=== PATIENT | male | born 1960 | race African-American/Black ===

== ENCOUNTER 2017-09-22 17:01 | Inpatient (IN) | payer OTHER ==
[2017-09-22] MEDS ORDERED: NAPROXEN 500 MG TABLET (FP) PO ONE (19:27)
--- NOTE | 2017-09-22 19:27 | PDOC ---
History of Present Illness - General Chief Complaint: Back Pain Stated Complaint: Back pain, PMD SENT Time Seen by Provider: 09/22/17 19:04 History Source: Patient - History of Present Illness Initial Comments: 09/22/17 19:26 56 year old male with a PMH of HTN and chronic back pain (2/2 to occupational injury) presents to ED today c/o 2-3 day h/o of exacerbation of back pain. Back pain radiates down his lower legs and is constant. Patient notes he fell off a ladder in 2018 and has chronic lower back pain since that time and been evaluated with multiple MRIs. For the past few days patient notes increased pain with ambulation prompting his visit to the ED today. Denies any associated bowel/bladder incontinence however notes increased pain with Valsalva when having a bowel movement. Patient takes 1-2 Naproxen (500 mg) daily for pain. States he has tried physical therapy in the past with no relief of his symptoms. Patient denies fevers/chills, chest pain, shortness of breath, navuase/vomiting , diarrhea/constipation, sick contact or recent travel. NKDA Medications: Lisinopril, Naproxen Surgical: L rotator cuff repaiir Social: denies nicotine, social alcohol, denies recreational drugs. Past History - Past Medical History Allergies/Adverse Reactions: Allergies Allergy/AdvReac Type Severity Reaction Status Date / Time No Known Allergies Allergy Verified 09/22/17 17:06 Home Medications: Ambulatory Orders Lisinopril 10 mg PO DAILY 09/22/17 Oxycodone HCl/Acetaminophen [Percocet 5-325 mg Tablet] 1 - 2 tab PO Q4H COPD: No Diabetes: Yes HTN: Yes Other medical history: Back pain - Suicide/Smoking/Psychosocial Hx Smoking History: Never smoked Number of Cigarettes Smoked Daily: 2 Information on smoking cessation initiated: Yes 'Breaking Loose' booklet given: 09/22/17 Hx Alcohol Use: No Drug/Substance Use Hx: No Review of Systems - Review of Systems Constitutional: No: Chills, Fever HEENTM: No: Recent change in vision Respiratory: No: Cough, Shortness of Breath Cardiac (ROS): No: Chest Pain, Lightheadedness, Palpitations ABD/GI: No: Constipated, Diarrhea, Nausea, Vomiting, Abdominal cramping *Physical Exam - Vital Signs Last Vital Signs Temp Pulse Resp BP Pulse Ox 98.4 F 97 H 19 171/86 97 09/22/17 17:04 09/22/17 17:04 09/22/17 17:04 09/22/17 17:04 09/22/17 17:04 - Physical Exam Comments: 09/22/17 22:03 GENERAL: Awake, alert, and fully oriented, in no acute distress HEAD: No signs of trauma EYES: PERRLA, EOMI, sclera anicteric, conjunctiva clear ENT: Auricles normal inspection, hearing grossly normal, nares patent, oropharynx clear without exudates. Moist mucosa NECK: Nontender, no stepoffs, Normal ROM, supple, no lymphadenopathy, JVD, or masses LUNGS: Breath sounds equal, clear to auscultation bilaterally. No wheezes, and no crackles HEART: Regular rate and rhythm, normal S1 and S2, no murmurs, rubs or gallops ABDOMEN: Soft, nontender, normoactive bowel sounds. No guarding, no rebound. No masses EXTREMITIES: Normal range of motion, no edema. No clubbing or cyanosis. No cords, erythema, or tenderness NEUROLOGICAL: Cranial nerves II through XII intact. 5/5 strength and sensation in all extremities, Normal speech, normal gait, normal cerebellar function SKIN: Warm, Dry, normal turgor, no rashes or lesions noted. ED Treatment Course - LABORATORY CBC & Chemistry Diagram: 09/25/17 05:47 09/25/17 05:47 Medical Decision Making - Medical Decision Making 09/22/17 19:36 56 year old male presents with exacerbation of chronic back pain- no bowel/ bladder incontinence, no numbness/tingling. Initially 171/86 repeat BP @ bedside 130's/96. Physical exam significant for midline sacral tenderness. (+ ) pedal pulses, normal ROM, negative straight leg test. As patient has h/o recent MRI and provides imaging on CD will review prior to repeat imaging. 09/22/17 19:49 Case d/w Patient's orthopedic surgeon, Dr. Peters, wishes to admit patient for lumbar decompression tomorrow (09/23/17) - NPO @ midnight.. Will page hospitalist for admission. 09/22/17 22:29 Patient admitted to hospitalist. Will continue to monitor while in ED. *DC/Admit/Observation/Transfer Diagnosis at time of Disposition: Back pain - Referrals - Patient Instructions - Post Discharge Activity
[2017-09-22] MEDS ORDERED: NAPROXEN 500 MG TABLET (FP) ONE (19:49)
--- NOTE | 2017-09-22 20:04 | PDOC ---
Attending Attestation - Resident Resident Name: Maryse Thapa - ED Attending Attestation I have performed the following: I have examined & evaluated the patient, The case was reviewed & discussed with the resident, I agree w/resident's findings & plan - HPI HPI: 09/22/17 21:33 Pt was sent to the ER for evaluation of back pain. - Physicial Exam PE: 09/22/17 22:46 Agree with resident exam - Medical Decision Making 09/22/17 22:47 Admit patient to the hospitalist for ortho eval in the AM. Pt also noted to have thrombocytopenia. Pt may require hematology consult.
[2017-09-22 20:12] LABS: BASO % 1.3 % (0-2.0); EOS % 0.7 % (0-4.5); HEMATOCRIT 35.2 % (35.4-49); HEMOGLOBIN 11.8 GM/dL (11.7-16.9); LYMPH % 36.5 % (8-40); MCH 28.3 pg (25.7-33.7); MCHC 33.5 g/dl (32.0-35.9); MEAN CELL VOLUME 84.5 fl (80-96); MONO % 9.5 % (3.8-10.2); PLATELET COUNT 115 K/MM3 (134-434); RBC 4.16 M/mm3 (4.00-5.60); RDW 14.7 % (11.9-15.9); WHITE BLOOD COUNT 6.9 K/mm3 (4.0-10.0)
[2017-09-22 20:50] LABS: ALBUMIN 3.9 g/dl (3.4-5.0); ALK PHOS 73 U/L (45-117); ANION GAP 7 (8-16); BLOOD UREA NITROGEN 19 mg/dL (7-18); CALCIUM 8.7 mg/dL (8.5-10.1); CHLORIDE 111 mmol/L (98-107); CO2 24 mmol/L (21-32); CREATININE 0.9 mg/dL (0.7-1.3); GLUCOSE,RANDOM 134 mg/dL (74-106); SGOT/AST 16 U/L (15-37); SGPT/ALT 32 U/L (12-78); SODIUM 142 mmol/L (136-145); TOT PROT 7.2 g/dl (6.4-8.2)
[2017-09-22 20:53] LABS: BILIRUBIN,TOTAL < 0.1 mg/dL (0.2-1.0)
[2017-09-22] MEDS ORDERED: IBUPROFEN 400 MG TABLET (FP) PO PRN (21:15)
[2017-09-22] MEDS: SODIUM CHLORIDE 1,000 ML IV SCH (21:29)
--- NOTE | 2017-09-22 21:51 | HP ---
CHIEF COMPLAINT: back pain HISTORY OF PRESENT ILLNESS: 56 year old male with a history of hypertension and chronic back pain presented to the ED with a 3 day exacerbation of his back pain. He states that the pain is a 9/10 in severity, is located in the middle of his lumbar spine and radiates down to both of his legs. 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 He was out of work for 3 months before going back. He states that his back pain had never completely improved even after physical therapy. Patient states that the only medications he is on is naproxen for pain. Denies bowel or bladder incontinence. He is a patient of Dr. Trip Peters' sherin as an outpatient. ER course was notable for: (1) plts 115 (2) BP 171/86 PAST MEDICAL HISTORY: hypertension PAST SURGICAL HISTORY: L rotator cuff repair Social History: Smoking: none Alcohol: none Drugs: none Allergies No Known Allergies Allergy (Verified 09/22/17 17:06) HOME MEDICATIONS: Home Medications Medication Instructions Recorded Lisinopril 10 mg PO DAILY 09/22/17 Oxycodone HCl/Acetaminophen 1 - 2 tab PO Q4H 09/22/17 [Percocet 5-325 mg Tablet] REVIEW OF SYSTEMS CONSTITUTIONAL: Absent: fever, chills, diaphoresis, generalized weakness, malaise, loss of appetite, weight change HEENT: Absent: rhinorrhea, nasal congestion, throat pain, throat swelling, difficulty swallowing, mouth swelling, ear pain, eye pain, visual changes CARDIOVASCULAR: Absent: chest pain, syncope, palpitations, irregular heart rate, lightheadedness , peripheral edema RESPIRATORY: Absent: cough, shortness of breath, dyspnea with exertion, orthopnea, wheezing, stridor, hemoptysis GASTROINTESTINAL: Absent: abdominal pain, abdominal distension, nausea, vomiting, diarrhea, constipation, melena, hematochezia GENITOURINARY: Absent: dysuria, frequency, urgency, hesitancy, hematuria, flank pain, genital pain MUSCULOSKELETAL: back pain Absent: myalgia, arthralgia, joint swelling, neck pain SKIN: Absent: rash, itching, pallor HEMATOLOGIC/IMMUNOLOGIC: Absent: easy bleeding, easy bruising, lymphadenopathy, frequent infections ENDOCRINE: Absent: unexplained weight gain, unexplained weight loss, heat intolerance, cold intolerance NEUROLOGIC: Absent: headache, focal weakness or paresthesias, dizziness, unsteady gait, seizure, mental status changes, bladder or bowel incontinence PSYCHIATRIC: Absent: anxiety, depression, suicidal or homicidal ideation, hallucinations. PHYSICAL EXAMINATION Vital Signs - 24 hr 09/22/17 09/22/17 17:04 20:14 Temperature 98.4 F Pulse Rate 97 H Respiratory 19 Rate Blood Pressure 171/86 O2 Sat by Pulse 97 97 Oximetry (%) GENERAL: A&Ox3, no acute distress EYES: PERRLA, EOMI ENT: Moist mucus membranes NECK: No JVD LUNGS: CTA, no wheezes HEART: RRR, no murmurs ABDOMEN: Soft, nontender, BS present MUSCULOSKELETAL: No CVA Tenderness EXTREMITIES: 2+ pulses, no edema. NEUROLOGICAL: Cranial nerves II-XII intact. Laboratory Results - last 24 hr 09/22/17 09/22/17 20:00 20:00 WBC 6.9 RBC 4.16 Hgb 11.8 Hct 35.2 L MCV 84.5 MCH 28.3 MCHC 33.5 RDW 14.7 Plt Count 115 L MPV 12.0 H Neutrophils % 52.0 Lymphocytes % 36.5 Monocytes % 9.5 Eosinophils % 0.7 Basophils % 1.3 Sodium 142 Potassium 4.0 Chloride 111 H Carbon Dioxide 24 Anion Gap 7 L BUN 19 H Creatinine 0.9 Creat Clearance w eGFR > 60 Random Glucose 134 H Calcium 8.7 Total Bilirubin < 0.1 L AST 16 ALT 32 Alkaline Phosphatase 73 Total Protein 7.2 Albumin 3.9 ASSESSMENT/PLAN: 56 year old male with a hx of HTN presents with acute exacerbation of lower back pain. #Lumbar back pain: patient -Dr. Peters consult appreciated, scheduled for lumbar decompression tomorrow -motrin 400 q6h for back pain -percocet q4h for 10/10 back pain -type and screen -EKG NSR -NPO after midnight #Hypertension: patient is hypertensive -continue home dose lisinopril 10mg -give one dose tonight, repeat BP 1-2 hours after #FEN -NS @ 100cc/hr -replete lytes in AM -NPO after midnight for procedure tomorrow #Prophylaxis -SCDs prophylaxis #Disposition -admit to med surg Visit type - Emergency Visit Emergency Visit: Yes Care time: The patient presented to the Emergency Department on the above date and was hospitalized for further evaluation of their emergent condition. - New Patient This patient is new to me today: Yes Date on this admission: 09/22/17 - Critical Care Critical Care patient: No Hospitalist Screening - Colonoscopy Questionnaire Colonoscopy Questionnaire: Colonoscopy Questionnaire - Patient: 50 - 75 years old and never had a screening colonoscopy: Unknown History of colon or rectal polyps, or CA: Unknown History of IBD, Crohn's disease or UC: Unknown History of abdominal radiation therapy as a child: Unknown - Relative: 1 with colon or rectal CA, or polyps at age 60 or younger: Unknown Colon or rectal CA diagnosed at age 45 or younger: Unknown Multiple relatives with colon or rectal CA: Unknown - Outcome: Screening Result: Negative Screen
[2017-09-22] MEDS ORDERED: LISINOPRIL 10 MG TABLET (FP) PO ONE (21:53)
[2017-09-22] MEDS ORDERED: LISINOPRIL 5 MG TABLET (FP) ONE (22:17)
[2017-09-23] MEDS ORDERED: oxyCODONE HCL 5 MG TABLET PO PRN ×2 (02:45→09:15)
[2017-09-23] MEDS ORDERED: ACETAMINOPHEN 325 MG TABLET (FP) PO PRN ×2 (02:45→09:16)
[2017-09-23 03:13] VITALS: BMI 41.9
--- NOTE | 2017-09-23 06:00 | PN ---
Teaching Attending Note Name of Resident: Lake Zimmerman ATTENDING PHYSICIAN STATEMENT I saw and evaluated the patient. I reviewed the resident's note and discussed the case with the resident. I agree with the resident's findings and plan as documented. SUBJECTIVE: 56M with chronic lower back pain from work related injury presents with acute worsening of pain OBJECTIVE: CV: RRR nom/r/g lungs: CTA-B abd soft, NTND ASSESSMENT AND PLAN: 56M with acute on chronic lower back pain Dr Peters plans for lumbar decompression surgery later today NPO Pain control IV hydration HTN - controlled lisinopril 10mg daily
[2017-09-23] MEDS: SODIUM CHLORIDE 1,000 ML IV SCH (07:33)
[2017-09-23 08:08] LABS: HEMATOCRIT 36.3 % (35.4-49); MCH 28.3 pg (25.7-33.7); MCHC 33.1 g/dl (32.0-35.9); MEAN CELL VOLUME 85.7 fl (80-96); MEAN PLT VOLUME 11.6 fl (7.5-11.1); PLATELET COUNT 123 K/MM3 (134-434); RBC 4.24 M/mm3 (4.00-5.60); RDW 15.3 % (11.9-15.9)
[2017-09-23 08:21] LABS: ALBUMIN 4.2 g/dl (3.4-5.0); ANION GAP 8 (8-16); BLOOD UREA NITROGEN 16 mg/dL (7-18); CALCIUM 8.8 mg/dL (8.5-10.1); CHLORIDE 109 mmol/L (98-107); CO2 26 mmol/L (21-32); GLUCOSE,RANDOM 102 mg/dL (74-106); MAGNESIUM 2.3 mg/dL (1.8-2.4); PHOSPHOROUS 3.3 mg/dL (2.5-4.9); POTASSIUM 4.2 mmol/L (3.5-5.1); SGOT/AST 18 U/L (15-37); SGPT/ALT 29 U/L (12-78); SODIUM 143 mmol/L (136-145)
[2017-09-23 08:22] LABS: ALK PHOS 78 U/L (45-117); BILIRUBIN,TOTAL 0.3 mg/dL (0.2-1.0); TOT PROT 7.5 g/dl (6.4-8.2)
--- NOTE | 2017-09-23 09:09 | PN ---
Progress Note (short form) - Note Progress Note: Subjective: The patient was seen and examined at the bedside, he states he is having some pain to his back He reports he is supposed to take Lasix at home but is non-compliant. He reports his last ECHO was December 2016 Current Medications Generic Name Dose Route Start Last Admin Trade Name Freq PRN Reason Stop Dose Admin Acetaminophen 325 mg 09/23/17 02:45 09/23/17 02:55 Tylenol - PO 09/26/17 02:44 325 mg Q4H PRN Administration PAIN LEVEL 7 - 10 Sodium Chloride 1,000 mls @ 50 mls/hr 09/23/17 09:10 Normal Saline - IV ASDIR MICHELL Ibuprofen 400 mg 09/22/17 21:15 Motrin - PO Q8H PRN PAIN LEVEL 1-6 Lisinopril 10 mg 09/23/17 10:00 Prinivil PO DAILY MICHELL Oxycodone HCl 5 mg 09/23/17 02:45 09/23/17 02:55 Roxicodone - PO 5 mg Q4H PRN Administration PAIN LEVEL 7 - 10 Objective: Vital Signs Period Temp Pulse Resp BP Sys/Dougherty Pulse Ox Last 24 Hr 98.1 F-98.4 F 64-97 19-20 134-171/72-86 95-97 Physical Exam: General: NAD, A&Ox3 Lungs: CTA bilaterally Heart: RRR, S1S2 Abd: Soft, non-tender. Normoactive bowel sounds Ext: B/l lower extremity 1+ pitting edema Neuro: CN 2-12 intact CBCD WBC 7.0 K/mm3 (4.0-10.0) 09/23/17 07:39 RBC 4.24 M/mm3 (4.00-5.60) 09/23/17 07:39 Hgb 12.0 GM/dL (11.7-16.9) 09/23/17 07:39 Hct 36.3 % (35.4-49) 09/23/17 07:39 MCV 85.7 fl (80-96) 09/23/17 07:39 MCHC 33.1 g/dl (32.0-35.9) 09/23/17 07:39 RDW 15.3 % (11.9-15.9) 09/23/17 07:39 Plt Count 123 K/MM3 (134-434) L 09/23/17 07:39 MPV 11.6 fl (7.5-11.1) H 09/23/17 07:39 CMP Sodium 143 mmol/L (136-145) 09/23/17 07:39 Potassium 4.2 mmol/L (3.5-5.1) 09/23/17 07:39 Chloride 109 mmol/L (98-107) H 09/23/17 07:39 Carbon Dioxide 26 mmol/L (21-32) 09/23/17 07:39 Anion Gap 8 (8-16) 09/23/17 07:39 BUN 16 mg/dL (7-18) 09/23/17 07:39 Creatinine 1.0 mg/dL (0.7-1.3) 09/23/17 07:39 Creat Clearance w eGFR > 60 (>60) 09/23/17 07:39 Random Glucose 102 mg/dL (74-106) D 09/23/17 07:39 Calcium 8.8 mg/dL (8.5-10.1) 09/23/17 07:39 Total Bilirubin 0.3 mg/dL (0.2-1.0) D 09/23/17 07:39 AST 18 U/L (15-37) 09/23/17 07:39 ALT 29 U/L (12-78) 09/23/17 07:39 Alkaline Phosphatase 78 U/L (45-117) 09/23/17 07:39 Total Protein 7.5 g/dl (6.4-8.2) 09/23/17 07:39 Albumin 4.2 g/dl (3.4-5.0) 09/23/17 07:39 Assessment: This is a 56 year old male with PMHx of HTN, chronic back pain who presented to an acute exacerbation of his back pain. Plan: 1) Acute on chronic exacerbation of back pain - For surgery today; lumbar decompression - Pain management - EKG NSR - Patient not cleared medically for surgery until ECHO and cardiology consult 2) HTN - Continue Lisinopril 3) B/l lower extremity pitting edema - Patient reports non-compliance with Lasix, he reports "normal" ECHO 12/2016 - F/u ECHO - F/u trop, bnp - F/u cardiology consult 4) F/E/N: - IV fluids - NPO for possible surgery today 5) Prophylaxis: - Hold all chemical DVT prophylaxis for possible surgery 6) Dispo: - Requires continued inpatient care CODE STATUS: FULL CODE Visit type - Emergency Visit Emergency Visit: Yes ED Registration Date: 09/22/17 Care time: The patient presented to the Emergency Department on the above date and was hospitalized for further evaluation of their emergent condition. - New Patient This patient is new to me today: Yes Date on this admission: 09/23/17 - Critical Care Critical Care patient: No
[2017-09-23] MEDS ORDERED: SODIUM CHLORIDE 1,000 ML IV SCH (09:10)
[2017-09-23] MEDS: LISINOPRIL 10 MG TABLET (FP) PO SCH (09:14)
[2017-09-23] MEDS ORDERED: morphine CARPU-JECT 2 MG/1 ML DISP.SYRIN IVPUSH PRN (09:15)
[2017-09-23] MEDS ORDERED: morphine SULFATE 4 MG/ML VIAL IVPUSH PRN (09:35)
[2017-09-23 10:01] LABS: N-TERMINAL BNP 40.68 pg/ml (5-125)
[2017-09-23] MEDS ORDERED: PROPOFOL 20 ML ONE ×19 (15:58→21:45)
[2017-09-23] MEDS ORDERED: ONDANSETRON 4 MG/2 ML VIAL ONE (15:58)
[2017-09-23] MEDS ORDERED: DEXAMETHASONE SOD PHOSPHATE 4 MG/1 ML VIAL ONE (15:58)
[2017-09-23] MEDS ORDERED: MIDAZOLAM HCL 2 MG/2 ML SINGLE DOSE VIAL ONE (15:58)
[2017-09-23] MEDS ORDERED: SUCCINYLCHOLINE CHLORIDE 200 MG/10 ML VIAL ONE (15:58)
[2017-09-23] MEDS ORDERED: LIDOCAINE HCL/PF 2% SDV 5ML VIAL ONE (15:58)
[2017-09-23] MEDS ORDERED: fentaNYL CITRATE 250 MCG/5 ML VIAL ONE ×3 (15:58→21:59)
[2017-09-23] MEDS ORDERED: ceFAZolin SODIUM 1 GM VIAL ONE ×2 (16:03→21:39)
[2017-09-23] MEDS ORDERED: VANCOMYCIN 1,000 MG VIAL (RESTRICTED TO ID ONLY) ONE (16:03)
[2017-09-23] MEDS ORDERED: SODIUM CHLORIDE 0.9% P/F 10 ML VIAL IJ ONE (16:07)
[2017-09-23] MEDS ORDERED: VANCOMYCIN 1,000 MG VIAL (RESTRICTED TO ID ONLY) IVPB ONE ×2 (16:15)
[2017-09-23] MEDS ORDERED: GELATIN, ABSORBABLE 100 EACH SPONGE TP ONE (16:30)
[2017-09-23] MEDS ORDERED: THROMBIN (BOVINE) 5,000 UNIT VIAL TP ONE ×2 (16:30→16:48)
[2017-09-23] MEDS ORDERED: ROCURONIUM BROMIDE 50 MG/5 ML VIAL ONE ×2 (17:05→17:48)
[2017-09-23] MEDS ORDERED: ceFAZolin SODIUM 1 GM VIAL IVPB ONE ×2 (17:10)
[2017-09-23] MEDS ORDERED: TRANEXAMIC ACID 1000 MG/10 ML VIAL ONE (18:38)
[2017-09-23] MEDS ORDERED: LABETALOL HCL 5 MG/1 ML (100MG/20 ML VIAL) ONE (19:22)
[2017-09-23] MEDS ORDERED: ePHEDrine SULFATE 50 MG/1 ML AMPULE ONE (20:23)
[2017-09-23] MEDS ORDERED: PROMETHAZINE HCL 25 MG/1 ML VIAL IVPUSH PRN (22:48)
--- NOTE | 2017-09-23 22:59 | OP ---
Operative Note - Note: Operative Date: 09/23/17 Pre-Operative Diagnosis: Lumbar spinal stenosis w/neurogenic claudication. Epidural lipomatosis. Segmental instability Operation: L1-S1 laminectomies. L4-L5 PLIF. L3, L4 Power-Sebastian osteotomies. Resection of tumor L1-S1. L1-S1 PISF. Complex wound closure ( 35cm) Post-Operative Diagnosis: Same as Pre-op Surgeon: Trip Peters Warehouse Consultant: Valentino Peters Anesthesiologist/FLAME ANNEALING MACHINE SETTER: Lake Martinez Anesthesia: General Specimens Removed: L1-S1 tumor. L4-L5 disk Estimated Blood Loss (mls): 1,700 Drains & Tubes with Location: 1 x superficial HemoVac Blood Volume Replaced (mls): 750 (Cell Saver) Fluid Volume Replaced (mls): 5,000 (Crystalloid) Operative Report Dictated: Yes
[2017-09-23] MEDS ORDERED: LACTATED RINGERS SOLUTION 1,000 ML IV SCH (23:00)
[2017-09-23] MEDS ORDERED: ONDANSETRON 4 MG/2 ML VIAL IVPUSH PRN (23:02)
--- NOTE | 2017-09-23 23:02 | PN ---
Progress Note (short form) - Note Progress Note: 56M s/p L1-S1 laminectomies, L4-L5 PLIF, L3, L4 Power-Sebastian osteotomies, Resection of tumor L1-S1, L1-S1 PISF POD #0. *Intra-operative durotomy* -Admit to ICU post-op. -HemoVac drain to gravity; no suction. -Bedrest w/head of bed flat x 48 hrs. post-op. -Pain control: per anaesthesia team; MILLED RUBBER TENDER. -Mechanical DVT PPx only: STACEY's, SCD's. -Incentive spirometry. -NPO until flatus. -Maintain Gaviria catheter. -Willa-op antibiotics. -f/u AM labs. -Care per medical hospitalist team. -Discharge planning. -Will follow. Trip Peters MD (Orthopaedic Surgery).
[2017-09-23] MEDS ORDERED: HYDROmorphone *PCA* 10MG/50ML DISP.SYRIN PCA ONE (23:09)
--- NOTE | 2017-09-23 23:52 | EKG ---
Test Reason : Blood Pressure : / mmHG Vent. Rate : 069 BPM Atrial Rate : 069 BPM P-R Int : 178 ms QRS Dur : 096 ms QT Int : 404 ms P-R-T Axes : 064 006 011 degrees QTc Int : 432 ms NORMAL SINUS RHYTHM WITH SINUS ARRHYTHMIA NORMAL ECG NO PREVIOUS ECGS AVAILABLE Confirmed by LILIA SONG MD ([id number]) on 09/23/2017 11:52:16 PM Referred By: Confirmed By:LILIA SONG MD
[2017-09-23] MEDS ORDERED: ACETAMINOPHEN INJECTION 100 ML IVPB ONE (23:55)
[2017-09-23] MEDS: ACETAMINOPHEN 1000 MG/100 ML VIAL (NON FORMULARY) IVPB SCH (23:55)
[2017-09-24] MEDS: HYDROmorphone *PCA* 10MG/50ML DISP.SYRIN PCA SCH ×4 (00:30→22:17)
[2017-09-24] MEDS: LACTATED RINGERS SOLUTION 1,000 ML IV SCH ×4 (00:48→17:10)
[2017-09-24] MEDS: ceFAZolin 2 GRAM PREMIX BAG IVPB SCH ×2 (00:49→09:15)
--- NOTE | 2017-09-24 02:10 | OP ---
DATE OF OPERATION: 09/23/2017 SURGEON: Trip Peters MD DEVELOPMENT VICE PRESIDENT: Valentino Peters MD PREOPERATIVE DIAGNOSIS: Epidural lipomatosis with associated segment instability, facet arthropathy, and severe spinal stenosis L1-S1. POSTOPERATIVE DIAGNOSIS: Epidural lipomatosis with associated segment instability, facet arthropathy, and severe spinal stenosis L1-S1. OPERATION PERFORMED: 1. Multi-level laminectomy L1-S1. 2. Excision of epidural lipomatosis fat. 3. Incidental durotomy and repair of dura, left L3 nerve root. 4. Power-Isabel Laura osteotomy of L3-L4. 5. Pedicle screw instrumentation L1-S1. 6. Posterior lumbar antibody fusion L4-L5. 7. Posterior arthrodesis L1, L2, L3, L4, L4, L5, S1. 8. Use of bone marrow aspirate concentrate and autologous bone graft. 9. Use of biplane fluoroscopy and intraoperative neuromonitoring. ANESTHESIA: General. ANTIBIOTICS GIVEN: Kefzol 2 g, 1 g vancomycin, 1 g Kefzol given intraoperatively. BLOOD LOSS: 1700 mL. Approximately 800 mL given back. PROCEDURE: Patient was correctly identified and brought to the operating room. Lumbar spine was prepped in a routine manner with betadine scrub solution, wiped off with alcohol. DuraPrep applied. A window drape applied. Midline incision utilized from the tip of the spinous process of T12 to S1. This proved to be an extremely difficult dissection because of this gentleman's thick musculature. He is 5 feet 3 inches and weighs 275 pounds. With difficulty, we gained exposure of the entire lumbar spine. Lateral fluoroscopic x-rays helped us delineate the levels. From L1 down to S1, utilizing Kerrison upcuts, Leksell rongeurs, and osteotomes, the entire lamina of L1 to S1 was resected including undercutting facetectomies. The epidural fat bathing the entire thecal sac was removed and sent to the lab for histopathology. This was clearly an abnormal fat distribution in keeping with epidural lipomatosis. It was impossible to perform a posterior lumbar interbody fusion at L5-S1 because of the slope of the sacrum. We would be working virtually parallel to the floor in this very thick musculature. We went ahead and performed a posterior lumbar interbody fusion at L4-L5 with a 12-mm TETRAfuse spacer and the interspace was packed with bone graft after removal of disc material. Disc material was removed with jimi and upcuts below the annulus. The jimi were utilized to cut out the disc material and serrated curettes and pituitary rongeurs freed the disc completely. Pedicle screws were seated from L1-S1 using biplane fluoroscopy as well as intraoperative neuromonitoring. Each screw was measured with an intraneural device, well above 3 milliamps to each screw. The rods were contoured appropriately, fixed to the screw heads, and solid fixation achieved. Prior to this, a Power-Isabel Laura osteotomy was performed at L3-L4. This enabled clear exposure of the nerve root of L3 and L4 on the left-hand side as well as L2. There was a small dural tear in the nerve, but this was left well alone. It was not leaking. It was impossible to actually get a dural stitch at this level accordingly. Throughout the procedure, the dura remained enlarged, plump, and healthy. There was no active CSF leakage, but still we placed Surgicel and fibrin glue. DuraSeal was utilized. The wound was thoroughly washed throughout the procedure. The retractors were released throughout the procedure. Bone marrow aspirate concentrate was aspirated and placed in the bone graft. The bone graft was packed into the intertransverse plane from L1-S1, right to the level of the sacrum, which was clearly visualized and freed of all soft tissue. Closure: Muscle with 1 Vicryl, fascia 1 Vicryl, subcutaneous 1 and 2-0 Vicryl, skin medardo. Drainage: A 1/8-inch Hemovac subcutaneously, but left without suction. OPERATIVE COMMENT: Extremely difficult operation because of the man's size. Also the extensive tumor necessitated extensive dissection accordingly. Small dura leak was sealed. No other complications. MD DAMEON Mota/[id number]
[2017-09-24] MEDS ORDERED: VANCOMYCIN 1,000 MG in DEXTROSE 5%-WATER - 250 ML IVPB ONE (03:00)
[2017-09-24 06:49] LABS: HEMOGLOBIN 10.2 GM/dL (11.7-16.9); MCH 28.3 pg (25.7-33.7); MEAN CELL VOLUME 85.6 fl (80-96); MEAN PLT VOLUME 11.2 fl (7.5-11.1); PLATELET COUNT 95 K/MM3 (134-434); RBC 3.62 M/mm3 (4.00-5.60); RDW 15.3 % (11.9-15.9); WHITE BLOOD COUNT 11.4 K/mm3 (4.0-10.0)
--- NOTE | 2017-09-24 07:06 | PN ---
Progress Note (short form) - Note Progress Note: Chief Complaint: Events noted, noters reviewed, complaining of persistent back discomfort, denies any chest pain or dyspnea, sinus rhythm is noted History of Present Illness: Seen and examined in the ICU. POD#1, Full consult dictated Lumbar spinal stenosis with neurogenic claudication, Epidural lipomatosis post L1-S1 laminectomies, L4-L5 PLIF, L3, L4 Power-Sebastian osteotomies, Resection of tumor L1-S1, L1-S1 PISF and Complex wound closure Echocardiography revealed low normal LV EF between 50-55%, with trace TR - Current Medication List Current Medications Acetaminophen (Ofirmev Injection -) 1,000 mg IVPB Q8H [facility] Stop: 09/24/17 16:01 Last Admin: 09/24/17 09:10 Dose: 1,000 mg Hydromorphone HCl (Dilaudid Director Payment -) 0 mg CLAM SORTER CLAM SORTER [facility] PRN Reason: Protocol Stop: 09/30/17 22:49 Last Admin: 09/24/17 07:41 Dose: 10 mg Lactated Ringer's (Lactated Ringers Solution) 1,000 mls @ 125 mls/hr IV ASDIR [facility] Last Admin: 09/24/17 09:15 Dose: 125 mls/hr Ketorolac Tromethamine (Toradol Injection -) 30 mg IVPUSH Q6H PRN PRN Reason: PAIN LEVEL 6-10 Stop: 09/28/17 23:01 Lisinopril (Prinivil) 10 mg PO DAILY [facility] Last Admin: 09/24/17 09:15 Dose: 10 mg Ondansetron HCl (Zofran Injection) 4 mg IVPUSH Q6H PRN PRN Reason: NAUSEA AND/OR VOMITING Ondansetron HCl (Zofran Injection) 4 mg IVPUSH Q6H PRN PRN Reason: NAUSEA AND/OR VOMITING Promethazine HCl (Phenergan Injection -) 12.5 mg IVPUSH Q6H PRN PRN Reason: NAUSEA-FOR RESCUE AFTER 15 MIN Review of Systems - Review of Systems Constitutional: denies: Chills, Fever Cardiovascular: As noted above Respiratory: denies: Cough or Sputum Production Gastrointestinal: denies: Nausea, Vomiting, Diarrhea, Constipation or Abdominal Discomfort Neurological: denies: Dizziness or Headache - Objective Vital Signs: Last Vital Signs Temp Pulse Resp BP Pulse Ox 98.7 F 67 20 112/66 100 09/24/17 10:00 09/24/17 10:00 09/24/17 10:00 09/24/17 10:00 09/24/17 09:36 Intake & Output 09/21/17 09/22/17 09/23/17 09/24/17 23:59 23:59 23:59 23:59 Intake Total 6650 925 Output Total 1970 1025 Balance 4680 -100 Weight 258 lb 276 lb Neck: Supple Negative JVD No Bruit Cardiovascular: S1 S2 Regular, Rate and Rhythm Respiratory: Clear to A&P Bilaterally Gastrointestinal: Soft Benign Normal Bowel Sounds Ext: Edema Labs: CBC, BMP 09/24/17 05:45 09/24/17 05:45 Hepatic Panel Total Bilirubin 0.3 mg/dL (0.2-1.0) 09/24/17 05:45 AST 55 U/L (15-37) H D 09/24/17 05:45 ALT 30 U/L (12-78) 09/24/17 05:45 Alkaline Phosphatase 61 U/L (45-117) D 09/24/17 05:45 Albumin 3.1 g/dl (3.4-5.0) L D 09/24/17 05:45 Assessment/Plan 1. Lumbar spinal stenosis with neurogenic claudication, POD#1 post Epidural lipomatosis post L1-S1 laminectomies, L4-L5 PLIF (posterior lumbar interbody fusion), L3, L4 Power-Sebastian osteotomies, Resection of tumor L1-S1, L1-S1 PISF and Complex wound closure 2. LV systolic/diastolic dysfunction with class 0 NYHA classification LV failure 3. CAd angian pectoris to be excluded as culprit for the above noted LV dysfunction 4. HTN 5. Peripheral edema most likely related to chronic venous insufficiency 6. Thrombocytopenia PLAN: 1. Pain management as per the primary team 2. Continue Lisinopril 3. Add Coreg 4. Add ASA once hemostasis is achieved and cleared by surgery 5. Additional cardiovascular evaluation is recommended including myocardial perfusion imaging study to be performed on outpatient once patient is fully ambulatory 6. Evaluation of the above-noted thrombocytopenia Sean Garrison MD
[2017-09-24 07:33] LABS: ALBUMIN 3.1 g/dl (3.4-5.0); ALK PHOS 61 U/L (45-117); ANION GAP 9 (8-16); BILIRUBIN,TOTAL 0.3 mg/dL (0.2-1.0); BLOOD UREA NITROGEN 17 mg/dL (7-18); CALCIUM 8.2 mg/dL (8.5-10.1); CHLORIDE 106 mmol/L (98-107); CO2 26 mmol/L (21-32); CREATININE 1.1 mg/dL (0.7-1.3); GLUCOSE,RANDOM 141 mg/dL (74-106); POTASSIUM 4.7 mmol/L (3.5-5.1); SGOT/AST 55 U/L (15-37); SGPT/ALT 30 U/L (12-78); SODIUM 141 mmol/L (136-145); TOT PROT 5.8 g/dl (6.4-8.2)
[2017-09-24] MEDS ORDERED: HYDROmorphone *PCA* 10MG/50ML DISP.SYRIN PCA ONE ×3 (07:38→22:14)
[2017-09-24 07:54] LABS: MAGNESIUM 1.8 mg/dL (1.8-2.4); PHOSPHOROUS 5.4 mg/dL (2.5-4.9)
[2017-09-24] MEDS: ACETAMINOPHEN 1000 MG/100 ML VIAL (NON FORMULARY) IVPB SCH ×2 (09:10→16:25)
[2017-09-24] MEDS: LISINOPRIL 10 MG TABLET (FP) PO SCH (09:15)
[2017-09-24] MEDS ORDERED: SENNOSIDES 8.6MG TABLET (FP) PO PRN (11:40)
[2017-09-24] MEDS ORDERED: DOCUSATE SODIUM 100 MG CAPSULE (FP) PO PRN (11:42)
--- NOTE | 2017-09-24 12:10 | CONS ---
DATE OF CONSULTATION: 09/24/2017 CHIEF COMPLAINT: Evaluation of systolic left ventricular dysfunction, peripheral edema. HISTORY: This is a 56-year-old male of ancestry who presented to [facility] with worsening low back discomfort and bilateral lower extremity discomfort with weakness related to spinal stenosis in view of which urgent surgical intervention was performed yesterday, and he was noted preprocedure to have evidence of bilateral lower extremity edema. In addition, the patient had reported a history of hypertensive cardiovascular disease. The patient denied any prior history of coronary artery disease or congestive heart failure. The patient reported longstanding hypertension for which he has been on lisinopril therapy. The patient denied any diabetes mellitus or hypercholesterolemia. The patient currently is postoperative day number 1 complaining of incisional discomfort. The patient denies any prior history of chest discomfort. The patient reports dyspnea with moderate physical exertion. The patient denies any orthopnea or paroxysmal or nocturnal dyspnea. The patient reports intermittent bilateral lower extremity edema that worsens in the latter part of the day. The patient denies any palpitations, dizziness, lightheadedness, or syncope. The patient admits to lack of exercise related to the above-noted presentation. PAST MEDICAL HISTORY: Hypertensive cardiovascular disease, degenerative lumbosacral disk disease, post history of trauma. SOCIAL HISTORY: Denies tobacco abuse or alcohol intake. FAMILY HISTORY: No family history of premature coronary artery disease. ALLERGIES: No known medical allergy. MEDICATIONS: Medical therapy at home included lisinopril 10 mg once a day, oxycodone/acetaminophen 5/325-mg tablet 1-2 tablets every 4 hours as needed. REVIEW OF SYSTEMS: Head and Neck: Denies headache, photophobia, blurring of vision. Respiratory: No cough or sputum production. Cardiovascular: As noted above. Gastrointestinal: Denies nausea, vomiting, diarrhea, abdominal discomfort. Genitourinary: No symptoms reported. Musculoskeletal: As noted above. PHYSICAL EXAMINATION: Vital Signs: Blood pressure 112/66 mmHg, pulse rate 67 beats per minute, temperature 98.7. Head and Neck: Pupils equal and reactive to light and accommodation. Extraocular muscles are intact. Anicteric sclerae. Negative JVD. No bruits appreciated. Chest: Clear to auscultation and percussion. Cardiovascular: S1, S2. Regular. No murmurs appreciated. Abdomen: Soft, benign. Normoactive bowel sounds. Extremities: Bilateral edema. Intact distal pulses. No calf tenderness. DIAGNOSTIC DATA: Electrocardiogram revealed sinus rhythm with early transition within normal limits. Chest x-ray was noted. Echocardiography revealed normal left ventricular size with left ventricular systolic function lower limit of normal with estimated left ventricular ejection fraction between 50%-55%, normal right ventricular size and function, trace tricuspid valve regurgitation, and no pericardial effusion. CBC revealed white cell count 11.4, hemoglobin 10.2, platelet count 95. Basic metabolic profile revealed a sodium 141, potassium 4.7, BUN 17, creatinine 1.1, glucose 141. ASSESSMENT: 1. Lumbar spinal stenosis with neurogenic claudication postoperative day number 1 post epidural lipomatosis post L1-S2 laminectomies, L4-L5 posterior lumbar interbody fusion, and resection of tumor. 2. Left ventricular systolic/diastolic dysfunction with class 0 [place] [employer] classification left ventricular failure. 3. Coronary artery disease, angina pectoris to be excluded as a culprit for the above-noted systolic/diastolic left ventricular dysfunction. 4. Hypertensive cardiovascular disease. 5. Peripheral edema most likely related to chronic venous insufficiency. No clinical indication for congestive heart failure. 6. Thrombocytopenia etiology of which is to be determined. RECOMMENDATION: 1. Pain management as per the primary team. 2. Continuation of lisinopril hemodynamics permitting. 3. Addition of aspirin once hemostasis is achieved and cleared by surgery. 4. Further cardiovascular evaluation is recommended for the above-noted systolic left ventricular dysfunction including myocardial perfusion imaging study to be perforated on outpatient basis once fully ambulatory. 5. Evaluation of the above-noted thrombocytopenia. Thank you for the kind referral. BISI LIANG M.D. [id number]
[2017-09-24] MEDS: KETOROLAC TROMETHAMINE 30 MG/1 ML VIAL IVPUSH PRN ×2 (12:48→23:45)
[2017-09-24] MEDS: POLYETHYLENE GLYCOL 3350 119 GM BTL PO SCH (12:48)
[2017-09-24] MEDS: CARVEDILOL 3.125 MG TABLET (FP) PO SCH ×2 (12:49→21:39)
--- NOTE | 2017-09-24 13:00 | PN ---
Teaching Attending Note Name of Resident: Buddy Wolf ATTENDING PHYSICIAN STATEMENT I saw and evaluated the patient. I reviewed the resident's note and discussed the case with the resident. I agree with the resident's findings and plan as documented. SUBJECTIVE: Pt seen and examined in the ICU. Briefly, 56yo male with h/o HTN, lumbar spinal stenosis, epidural lipomatosis who was electively admitted for surgery now s/p L1-S1 laminectomies, L4-L5 PLIF, L3, L4 Power Sebastian Osteotomies, resection of tumor L1-S1, L1-S1 PISF. +durotomy. EBL 1700mL, received cell saver, 5L crystalloid. Currently in the ICU on dilaudid FIXTURE MAKER states pain is relatively controlled. No nausea or vomiting. No flatus. No shortness of breath or chest pain. No fevers or chills. OBJECTIVE: Last Vital Signs Temp Pulse Resp BP Pulse Ox 98.7 F 93 H 20 115/71 100 09/24/17 10:00 09/24/17 11:41 09/24/17 11:41 09/24/17 11:41 09/24/17 09:36 Intake & Output 09/21/17 09/22/17 09/23/17 09/24/17 23:59 23:59 23:59 23:59 Intake Total 6650 925 Output Total 1970 1025 Balance 4680 -100 Weight 117.027 kg 125.191 kg Gen: NAD at rest Heart: RRR Lung: decreased breath sounds at the bases Abd: soft, nontender Ext: no edema CBC, BMP 09/24/17 05:45 09/24/17 05:45 Active Medications Acetaminophen (Ofirmev Injection -) 1,000 mg IVPB Q8H [facility] Stop: 09/24/17 16:01 Last Admin: 09/24/17 09:10 Dose: 1,000 mg Carvedilol (Coreg -) 3.125 mg PO BID [facility] Last Admin: 09/24/17 12:49 Dose: 3.125 mg Docusate Sodium (Colace -) 100 mg PO BID PRN PRN Reason: CONSTIPATION Hydromorphone HCl (Dilaudid Collections Attorney -) 0 mg FIXTURE MAKER FIXTURE MAKER MICHELL PRN Reason: Protocol Stop: 09/30/17 22:49 Last Admin: 09/24/17 07:41 Dose: 10 mg Lactated Ringer's (Lactated Ringers Solution) 1,000 mls @ 125 mls/hr IV ASDIR [facility] Last Admin: 09/24/17 09:15 Dose: 125 mls/hr Ketorolac Tromethamine (Toradol Injection -) 30 mg IVPUSH Q6H PRN PRN Reason: PAIN LEVEL 6-10 Stop: 09/28/17 23:01 Last Admin: 09/24/17 12:48 Dose: 30 mg Lisinopril (Prinivil) 10 mg PO DAILY [facility] Last Admin: 09/24/17 09:15 Dose: 10 mg Ondansetron HCl (Zofran Injection) 4 mg IVPUSH Q6H PRN PRN Reason: NAUSEA AND/OR VOMITING Ondansetron HCl (Zofran Injection) 4 mg IVPUSH Q6H PRN PRN Reason: NAUSEA AND/OR VOMITING Polyethylene Glycol (Miralax (For Daily Use) -) 17 gm PO DAILY [facility] Last Admin: 09/24/17 12:48 Dose: 17 gm Promethazine HCl (Phenergan Injection -) 12.5 mg IVPUSH Q6H PRN PRN Reason: NAUSEA-FOR RESCUE AFTER 15 MIN Senna (Senna -) 2 tab PO HS PRN PRN Reason: CONSTIPATION ASSESSMENT AND PLAN: Lumbar Spinal Stenosis s/p L1-S1 Laminectomies/tumor resection/L1-S1 PISF HTN - pain control - incentive spirometry - PO when flatus - whitfield when OOB - supine positioning - mechanical DVT prophylaxis - bowel regimen - disposition per surgery
--- NOTE | 2017-09-24 14:02 | PN ---
Physical Exam: SUBJECTIVE: Patient seen and examined. No acute events overnight. Pt states that pain is 5/10 and is well controlled. He denies passing flatus. He denies SOB, chest pain, n/v/, abdominal pain, dysuria, increased numbness, parasthesias, and LE weakness. OBJECTIVE: Vital Signs Period Temp Pulse Resp BP Sys/Dougherty Pulse Ox Last 24 Hr 97.9 F-98.7 F 64-93 16-24 99-140/51-78 97-100 GENERAL: obese middle aged male, lying flat in bed, in NAD HEENT: NC, AT LUNGS: CTAB, no rales or rhonchi HEART: Regular rate and rhythm, S1, S2 without murmur, rub or gallop. ABDOMEN: soft, NT, ND, hypoactive BS EXTREMITIES: 2+ pulses, warm, well-perfused, no edema. NEUROLOGICAL: Cranial nerves II through XII grossly intact. Normal speech, gait not observed. Laboratory Results - last 24 hr 09/24/17 09/24/17 09/24/17 05:45 05:45 07:30 WBC 11.4 H D RBC 3.62 L Hgb 10.2 L D Hct 31.0 L MCV 85.6 MCH 28.3 MCHC 33.0 RDW 15.3 Plt Count 95 L D MPV 11.2 H Sodium 141 Potassium 4.7 Chloride 106 Carbon Dioxide 26 Anion Gap 9 BUN 17 Creatinine 1.1 Creat Clearance w eGFR > 60 POC Glucometer [phone] Random Glucose 141 H D Calcium 8.2 L Phosphorus 5.4 H D Magnesium 1.8 D Total Bilirubin 0.3 AST 55 H D ALT 30 Alkaline Phosphatase 61 D Total Protein 5.8 L D Albumin 3.1 L D Active Medications Generic Name Dose Route Start Last Admin Trade Name Freq PRN Reason Stop Dose Admin Acetaminophen 1,000 mg 09/24/17 00:00 09/24/17 09:10 Ofirmev Injection - IVPB 09/24/17 16:01 1,000 mg Q8H MICHELL Administration Carvedilol 3.125 mg 09/24/17 11:45 09/24/17 12:49 Coreg - PO 3.125 mg BID MICHELL Administration Docusate Sodium 100 mg 09/24/17 11:42 Colace - PO BID PRN CONSTIPATION Hydromorphone HCl 0 mg 09/23/17 23:00 04/10/18 07:41 Dilaudid Rent And Housing Investigator - CREDIT RISK MANAGER 09/30/17 22:49 10 mg CREDIT RISK MANAGER MICHELL Administration Protocol Lactated Ringer's 1,000 mls @ 125 mls/hr 09/23/17 23:15 09/24/17 09:15 Lactated Ringers Solution IV 125 mls/hr ASDIR MICHELL Administration Ketorolac Tromethamine 30 mg 09/23/17 23:02 09/24/17 12:48 Toradol Injection - IVPUSH 09/28/17 23:01 30 mg Q6H PRN Administration PAIN LEVEL 6-10 Lisinopril 10 mg 09/23/17 10:00 09/24/17 09:15 Prinivil PO 10 mg DAILY MICHELL Administration Ondansetron HCl 4 mg 09/23/17 22:48 Zofran Injection IVPUSH Q6H PRN NAUSEA AND/OR VOMITING Ondansetron HCl 4 mg 09/23/17 23:02 Zofran Injection IVPUSH Q6H PRN NAUSEA AND/OR VOMITING Polyethylene Glycol 17 gm 09/24/17 11:45 09/24/17 12:48 Miralax (For Daily Use) - PO 17 gm DAILY MICHELL Administration Promethazine HCl 12.5 mg 09/23/17 22:48 Phenergan Injection - IVPUSH Q6H PRN NAUSEA-FOR RESCUE AFTER 15 MIN Senna 2 tab 09/24/17 11:40 Senna - PO HS PRN CONSTIPATION ASSESSMENT/PLAN: 56M w/ hx of HTN and chronic back pain, now POD#1 s/p L1-S1 laminectomies, L4- L5 PLIF, L3, L4 Power-Sebastian osteotomies, resection of tumor L1-S1, and intra- operative durotomy for epidural lipomatosis, facet arthropathy, and severe spinal stenosis. Neuro #POD#1 s/p L1-S1 laminectomies, L4-L5 PLIF, L3, L4 Power-Sebastian osteotomies, resection of tumor L1-S1, and intra-operative durotomy -Bedrest w/head of bed flat x 48 hrs post-op -HemoVac drain to gravity; no suction. -Pain control: per anaesthesia team; CREDIT RISK MANAGER CV #HTN -continue home lisinopril -per cards, coreg added. ASA to be resumed once hemostasis is achieved and cleared by surgery Pulm -incentive spirometry Heme -Hgb of 10.2, down from 12 before surgery. continue to monitor -platelets of 95, down from 115, continue to monitor ID -Willa-op antibiotics GI -NPO until flatus, then advance diet as tolerated -added senna, colace, and miralax Nephro -maintain whitfield catheter FEN/ppx -LR @125 -electrolytes wnl -NPO until flatus -no GI ppx indicated -SCDs per neurosurgery Case discussed with attending, Dr. Waldrop. -Buddy Wolf MD PGY1 ICU Team Visit type - Emergency Visit Emergency Visit: Yes ED Registration Date: 09/22/17 Care time: The patient presented to the Emergency Department on the above date and was hospitalized for further evaluation of their emergent condition. - New Patient This patient is new to me today: Yes Date on this admission: 09/24/17 - Critical Care Critical Care patient: Yes Total Critical Care Time (in minutes): 35 Critical Care Statement: The care of this patient involved high complexity decision making to prevent further life threatening deterioration of the patient 's condition and/or to evaluate & treat vital organ system(s) failure or risk of failure.
--- NOTE | 2017-09-24 14:34 | PN ---
Progress Note (short form) - Note Progress Note: Subjective: The patient was seen and examined at the bedside, he complains of back pain Current Medications Generic Name Dose Route Start Last Admin Trade Name Freq PRN Reason Stop Dose Admin Acetaminophen 1,000 mg 09/24/17 00:00 09/24/17 09:10 Ofirmev Injection - IVPB 09/24/17 16:01 1,000 mg Q8H MICHELL Administration Carvedilol 3.125 mg 09/24/17 11:45 09/24/17 12:49 Coreg - PO 3.125 mg BID MICHELL Administration Docusate Sodium 100 mg 09/24/17 11:42 Colace - PO BID PRN CONSTIPATION Hydromorphone HCl 0 mg 09/23/17 23:00 09/24/17 07:41 Dilaudid Flight Steward - PROCESS CONSULTANT 09/30/17 22:49 10 mg PROCESS CONSULTANT MICHELL Administration Protocol Lactated Ringer's 1,000 mls @ 125 mls/hr 09/23/17 23:15 09/24/17 09:15 Lactated Ringers Solution IV 125 mls/hr ASDIR MICHELL Administration Ketorolac Tromethamine 30 mg 09/23/17 23:02 09/24/17 12:48 Toradol Injection - IVPUSH 09/28/17 23:01 30 mg Q6H PRN Administration PAIN LEVEL 6-10 Lisinopril 10 mg 09/23/17 10:00 09/24/17 09:15 Prinivil PO 10 mg DAILY MICHELL Administration Ondansetron HCl 4 mg 09/23/17 22:48 Zofran Injection IVPUSH Q6H PRN NAUSEA AND/OR VOMITING Ondansetron HCl 4 mg 09/23/17 23:02 Zofran Injection IVPUSH Q6H PRN NAUSEA AND/OR VOMITING Polyethylene Glycol 17 gm 09/24/17 11:45 09/24/17 12:48 Miralax (For Daily Use) - PO 17 gm DAILY MICHELL Administration Promethazine HCl 12.5 mg 09/23/17 22:48 Phenergan Injection - IVPUSH Q6H PRN NAUSEA-FOR RESCUE AFTER 15 MIN Senna 2 tab 09/24/17 11:40 Senna - PO HS PRN CONSTIPATION Objective: Vital Signs Period Temp Pulse Resp BP Sys/Dougherty Pulse Ox Last 24 Hr 97.9 F-98.7 F 64-93 16-24 99-140/51-78 97-100 Physical Exam: General: NAD, A&Ox3 Lungs: CTA bilaterally Heart: RRR, S1S2 Abd: Soft, non-tender. Normoactive bowel sounds Ext: B/l lower extremity 1+ pitting edema Neuro: CN 2-12 intact CBCD WBC 11.4 K/mm3 (4.0-10.0) H D 09/24/17 05:45 RBC 3.62 M/mm3 (4.00-5.60) L 09/24/17 05:45 Hgb 10.2 GM/dL (11.7-16.9) L D 09/24/17 05:45 Hct 31.0 % (35.4-49) L 09/24/17 05:45 MCV 85.6 fl (80-96) 09/24/17 05:45 MCHC 33.0 g/dl (32.0-35.9) 09/24/17 05:45 RDW 15.3 % (11.9-15.9) 09/24/17 05:45 Plt Count 95 K/MM3 (134-434) L D 09/24/17 05:45 MPV 11.2 fl (7.5-11.1) H 09/24/17 05:45 CMP Sodium 141 mmol/L (136-145) 09/24/17 05:45 Potassium 4.7 mmol/L (3.5-5.1) 09/24/17 05:45 Chloride 106 mmol/L (98-107) 09/24/17 05:45 Carbon Dioxide 26 mmol/L (21-32) 09/24/17 05:45 Anion Gap 9 (8-16) 09/24/17 05:45 BUN 17 mg/dL (7-18) 09/24/17 05:45 Creatinine 1.1 mg/dL (0.7-1.3) 09/24/17 05:45 Creat Clearance w eGFR > 60 (>60) 09/24/17 05:45 Random Glucose 141 mg/dL (74-106) H D 09/24/17 05:45 Calcium 8.2 mg/dL (8.5-10.1) L 09/24/17 05:45 Total Bilirubin 0.3 mg/dL (0.2-1.0) 09/24/17 05:45 AST 55 U/L (15-37) H D 09/24/17 05:45 ALT 30 U/L (12-78) 09/24/17 05:45 Alkaline Phosphatase 61 U/L (45-117) D 09/24/17 05:45 Total Protein 5.8 g/dl (6.4-8.2) L D 09/24/17 05:45 Albumin 3.1 g/dl (3.4-5.0) L D 09/24/17 05:45 CARDIAC ENZYMES Creatine Kinase 203 IU/L (39-308) 09/23/17 07:39 Troponin I < 0.02 ng/ml (0.00-0.05) 09/23/17 07:39 Assessment: This is a 56 year old male with PMHx of HTN, chronic back pain who presented to an acute exacerbation of his back pain. Plan: 1) Acute on chronic exacerbation of back pain - S/p L1-S1 laminectomies, L4-L5 PLIF, L3, L4 Power-Sebastian osteotomies, Resection of tumor L1-S1. L1-S1 PISF - Pain management: Dilaudid PROCESS CONSULTANT, Toradol, Tylenol IV - Incentive spirometer - Received Cefazolin post op - PT - Appreciate surgery consult 2) HTN - Continue Lisinopril - Add Coreg 3) B/l lower extremity pitting edema - Patient reports non-compliance with Lasix, he reports "normal" ECHO 12/2016 - ECHO with low normal LV EF between 50-55%, with trace TR - BNP wnl, trop negative -Add ASA once cleared by surgery - Appreciate cardiology consult 4) Thrombocytopenia - Continue to trend, if worsening consider hematology consult 4) F/E/N: - IV fluids - NPO until passing flatus 5) Prophylaxis: - SCDs ONLY - No chemical DVT prophylaxis per surgery 6) Dispo: - Requires continued inpatient care CODE STATUS: FULL CODE Visit type - Emergency Visit Emergency Visit: Yes ED Registration Date: 09/22/17 Care time: The patient presented to the Emergency Department on the above date and was hospitalized for further evaluation of their emergent condition. - New Patient This patient is new to me today: No - Critical Care Critical Care patient: Yes Total Critical Care Time (in minutes): 45 Critical Care Statement: The care of this patient involved high complexity decision making to prevent further life threatening deterioration of the patient 's condition and/or to evaluate & treat vital organ system(s) failure or risk of failure.
--- NOTE | 2017-09-24 15:15 | PN ---
Progress Note (short form) - Note Progress Note: Post op day#1.S/p L1-S1 Laminectomy with instrumentation and fusion under GA uneventful.P 77,BP 116/73 and Spo2 100% on O2 3L NC.Patient stable and c/o pain score of 4-5/10 on Dilaudid salesperson new cars and Toradol.Will add Neurontin and will f/u tomorrow.
[2017-09-24] MEDS: ONDANSETRON 4 MG/2 ML VIAL IVPUSH PRN (16:26)
[2017-09-24] MEDS: PROMETHAZINE HCL 25 MG/1 ML VIAL IVPUSH PRN (18:39)
[2017-09-24] MEDS: GABAPENTIN 300 MG CAPSULE (FP) PO SCH (21:39)
[2017-09-25] MEDS ORDERED: HYDROmorphone *PCA* 10MG/50ML DISP.SYRIN PCA ONE ×2 (06:22→13:13)
[2017-09-25 06:37] LABS: BASO % 0.2 % (0-2.0); EOS % 0.1 % (0-4.5); HEMATOCRIT 27.7 % (35.4-49); HEMOGLOBIN 9.4 GM/dL (11.7-16.9); LYMPH % 10.6 % (8-40); MCH 28.7 pg (25.7-33.7); MCHC 33.8 g/dl (32.0-35.9); MEAN CELL VOLUME 85.1 fl (80-96); MEAN PLT VOLUME 11.5 fl (7.5-11.1); MONO % 10.7 % (3.8-10.2); NEUT % 78.4 % (42.8-82.8); PLATELET COUNT 90 K/MM3 (134-434); RBC 3.25 M/mm3 (4.00-5.60); RDW 14.9 % (11.9-15.9); WHITE BLOOD COUNT 13.1 K/mm3 (4.0-10.0)
--- NOTE | 2017-09-25 06:51 | PN ---
Progress Note (short form) - Note Progress Note: Chief Complaint: Events noted, noters reviewed, complaining of persistent back discomfort although severity has decreased, denies any chest pain or dyspnea, sinus rhythm is noted History of Present Illness: Seen and examined in the ICU. POD#2, Events noted, noters reviewed, complaining of persistent back discomfort although severity has decreased, denies any chest pain or dyspnea, sinus rhythm is noted Patient is post Lumbar spinal stenosis with neurogenic claudication, Epidural lipomatosis post L1-S1 laminectomies, L4-L5 PLIF, L3, L4 Power-Sebastian osteotomies, Resection of tumor L1-S1, L1-S1 PISF and Complex wound closure Echocardiography revealed low normal LV EF between 50-55%, with trace TR - Current Medication List Current Medications Carvedilol (Coreg -) 3.125 mg PO BID [facility] Last Admin: 09/24/17 21:39 Dose: 3.125 mg Docusate Sodium (Colace -) 100 mg PO BID PRN PRN Reason: CONSTIPATION Gabapentin (Neurontin -) 300 mg PO BID [facility] Last Admin: 09/24/17 21:39 Dose: 300 mg Hydromorphone HCl (Dilaudid Sawdust Drier -) 0 mg POLICE COMMUNICATIONS DISPATCHER POLICE COMMUNICATIONS DISPATCHER [facility] PRN Reason: Protocol Stop: 09/30/17 22:49 Last Admin: 09/24/17 22:17 Dose: 10 mg Lactated Ringer's (Lactated Ringers Solution) 1,000 mls @ 125 mls/hr IV ASDIR [facility] Last Admin: 09/24/17 17:10 Dose: 125 mls/hr Ketorolac Tromethamine (Toradol Injection -) 30 mg IVPUSH Q6H PRN PRN Reason: PAIN LEVEL 6-10 Stop: 09/28/17 23:01 Last Admin: 09/24/17 23:45 Dose: 30 mg Lisinopril (Prinivil) 10 mg PO DAILY [facility] Last Admin: 09/24/17 09:15 Dose: 10 mg Ondansetron HCl (Zofran Injection) 4 mg IVPUSH Q6H PRN PRN Reason: NAUSEA AND/OR VOMITING Last Admin: 09/24/17 16:26 Dose: 4 mg Ondansetron HCl (Zofran Injection) 4 mg IVPUSH Q6H PRN PRN Reason: NAUSEA AND/OR VOMITING Polyethylene Glycol (Miralax (For Daily Use) -) 17 gm PO DAILY [facility] Last Admin: 09/24/17 12:48 Dose: 17 gm Promethazine HCl (Phenergan Injection -) 12.5 mg IVPUSH Q4H PRN PRN Reason: NAUSEA AND/OR VOMITING Last Admin: 09/24/17 18:39 Dose: 12.5 mg Senna (Senna -) 2 tab PO HS PRN PRN Reason: CONSTIPATION Review of Systems - Review of Systems Constitutional: denies: Chills, Fever Cardiovascular: As noted above Respiratory: denies: Cough or Sputum Production Gastrointestinal: denies: Nausea, Vomiting, Diarrhea, Constipation or Abdominal Discomfort Neurological: denies: Dizziness or Headache - Objective Vital Signs: Last Vital Signs Temp Pulse Resp BP Pulse Ox 99.1 F 85 15 154/74 100 09/25/17 02:00 09/25/17 04:00 09/25/17 04:00 09/25/17 04:00 09/24/17 21:00 Intake & Output 09/22/17 09/23/17 09/24/17 09/25/17 23:59 23:59 23:59 23:59 Intake Total 6650 2825 Output Total 1970 2145 Balance 4680 680 Weight 258 lb 276 lb Neck: Supple Negative JVD No Bruit Cardiovascular: S1 S2 Regular, Rate and Rhythm Respiratory: Clear to A&P Bilaterally Gastrointestinal: Soft Benign Normal Bowel Sounds Ext: Trace Edema Labs: Blood test from this AM pending CBC, BMP 09/24/17 05:45 09/24/17 05:45 Hepatic Panel Total Bilirubin 0.3 mg/dL (0.2-1.0) 09/24/17 05:45 AST 55 U/L (15-37) H D 09/24/17 05:45 ALT 30 U/L (12-78) 09/24/17 05:45 Alkaline Phosphatase 61 U/L (45-117) D 09/24/17 05:45 Albumin 3.1 g/dl (3.4-5.0) L D 09/24/17 05:45 Assessment/Plan 1. Lumbar spinal stenosis with neurogenic claudication, POD#2 post Epidural lipomatosis post L1-S1 laminectomies, L4-L5 PLIF (posterior lumbar interbody fusion), L3, L4 Power-Sebastian osteotomies, Resection of tumor L1-S1, L1-S1 PISF and Complex wound closure 2. LV systolic/diastolic dysfunction with class 0 NYHA classification LV failure , compensated/euvolemic 3. CAD angina pectoris to be excluded as culprit for the above noted LV dysfunction 4. HTN 5. Peripheral edema most likely related to chronic venous insufficiency 6. Thrombocytopenia PLAN: 1. Pain management as per the primary team 2. Continue Lisinopril and titrate dosage as hemodynamic permit 3. Continue Coreg and titrate dosage as hemodynamic permit 4. Add ASA once hemostasis is achieved and cleared by surgery 5. As outlined additional cardiovascular evaluation is recommended including myocardial perfusion imaging study to be performed as outpatient once patient is fully ambulatory 6. As outlined evaluation of the above-noted thrombocytopenia Sean Garrison MD
[2017-09-25 06:58] LABS: ALBUMIN 2.9 g/dl (3.4-5.0); ANION GAP 7 (8-16); BLOOD UREA NITROGEN 13 mg/dL (7-18); CALCIUM 7.8 mg/dL (8.5-10.1); CHLORIDE 106 mmol/L (98-107); CO2 29 mmol/L (21-32); CREATININE 0.8 mg/dL (0.7-1.3); GLUCOSE,RANDOM 108 mg/dL (74-106); MAGNESIUM 2.1 mg/dL (1.8-2.4); PHOSPHOROUS 3.3 mg/dL (2.5-4.9); POTASSIUM 4.3 mmol/L (3.5-5.1); SGOT/AST 74 U/L (15-37); SGPT/ALT 29 U/L (12-78); SODIUM 142 mmol/L (136-145)
[2017-09-25 07:00] LABS: ALK PHOS 58 U/L (45-117); BILIRUBIN,TOTAL 0.3 mg/dL (0.2-1.0); TOT PROT 5.6 g/dl (6.4-8.2)
[2017-09-25] MEDS ORDERED: ALBUTEROL SO4 2.5/IPRATROPIUM 0.5 INH SOL 3 ML VIAL.NEB. NEB ONE (09:30)
[2017-09-25] MEDS: LACTATED RINGERS SOLUTION 1,000 ML IV SCH (09:54)
[2017-09-25] MEDS: DOCUSATE SODIUM 100 MG CAPSULE (FP) PO SCH ×2 (09:54→21:19)
[2017-09-25] MEDS: GABAPENTIN 300 MG CAPSULE (FP) PO SCH ×2 (09:54→21:19)
[2017-09-25] MEDS: CARVEDILOL 6.25 MG TABLET (FP) PO SCH ×2 (09:54→21:20)
[2017-09-25] MEDS: LISINOPRIL 20 MG TABLET (FP) PO SCH (10:05)
[2017-09-25] MEDS: POLYETHYLENE GLYCOL 3350 119 GM BTL PO SCH (10:54)
--- NOTE | 2017-09-25 12:45 | PN ---
Teaching Attending Note Name of Resident: Buddy Wolf ATTENDING PHYSICIAN STATEMENT I saw and evaluated the patient. I reviewed the resident's note and discussed the case with the resident. I agree with the resident's findings and plan as documented. SUBJECTIVE: Pt seen and examined in the ICU. Pain controlled with SENIOR SAS DEVELOPER pump. No nausea or vomiting. No flatus yet. Noted to be desaturating while sleeping. OBJECTIVE: Last Vital Signs Temp Pulse Resp BP Pulse Ox 98.9 F 95 H 20 153/82 100 09/25/17 10:00 09/25/17 10:00 09/25/17 10:00 09/25/17 10:00 09/25/17 09:00 Intake & Output 09/22/17 09/23/17 09/24/17 09/25/17 23:59 23:59 23:59 23:59 Intake Total 6650 2825 Output Total 1970 2145 400 Balance 4680 680 -400 Weight 117.027 kg 125.191 kg Gen: NAD at rest Heart: RRR Lung: decreased breath sounds at the bases Abd: soft, hypoactive BS Ext: no edema CBC, BMP 09/25/17 05:47 09/25/17 05:47 Active Medications Carvedilol (Coreg -) 6.25 mg PO BID [facility] Last Admin: 09/25/17 09:54 Dose: 6.25 mg Docusate Sodium (Colace -) 100 mg PO BID [facility] Last Admin: 09/25/17 09:54 Dose: 100 mg Gabapentin (Neurontin -) 300 mg PO BID [facility] Last Admin: 09/25/17 09:54 Dose: 300 mg Hydromorphone HCl (Dilaudid Protohistorian -) 0 mg SENIOR SAS DEVELOPER SENIOR SAS DEVELOPER [facility] PRN Reason: Protocol Stop: 09/30/17 22:49 Last Admin: 09/24/17 22:17 Dose: 10 mg Potassium Chloride/Dextrose/Sod Cl (D5-1/2ns+20 Meq Kcl -) 20 meq in 1,000 mls @ 100 mls/hr IV ASDIR [facility] Ketorolac Tromethamine (Toradol Injection -) 30 mg IVPUSH Q6H PRN PRN Reason: PAIN LEVEL 6-10 Stop: 09/28/17 23:01 Last Admin: 09/24/17 23:45 Dose: 30 mg Lisinopril (Prinivil) 20 mg PO DAILY [facility] Last Admin: 09/25/17 10:05 Dose: 20 mg Ondansetron HCl (Zofran Injection) 4 mg IVPUSH Q6H PRN PRN Reason: NAUSEA AND/OR VOMITING Last Admin: 09/24/17 16:26 Dose: 4 mg Ondansetron HCl (Zofran Injection) 4 mg IVPUSH Q6H PRN PRN Reason: NAUSEA AND/OR VOMITING Polyethylene Glycol (Miralax (For Daily Use) -) 17 gm PO DAILY [facility] Last Admin: 09/25/17 10:54 Dose: 17 gm Promethazine HCl (Phenergan Injection -) 12.5 mg IVPUSH Q4H PRN PRN Reason: NAUSEA AND/OR VOMITING Last Admin: 09/24/17 18:39 Dose: 12.5 mg Senna (Senna -) 2 tab PO HS [facility] ASSESSMENT AND PLAN: Lumbar Spinal Stenosis s/p L1-S1 Laminectomies/tumor resection/L1-S1 PISF HTN Obstructive Sleep Apnea - pain control - incentive spirometry - PO when flatus - whitfield when OOB - supine positioning - monitor drain output - mechanical DVT prophylaxis - bowel regimen - start CPAP at night - disposition per surgery
[2017-09-25] MEDS: D5-1/2NS+20 MEQ KCL - 20 MEQ/1,000 ML INFUS.BAG IV SCH (12:57)
--- NOTE | 2017-09-25 14:36 | PN ---
Progress Note (short form) - Note Progress Note: Subjective: The patient was seen and examined at the bedside, he denies passing gas since surgery. He states his pain is tolerable WBC trending up 11.4->13.1 Remains on Dilaudid CONTROL ENGINEER Current Medications Generic Name Dose Route Start Last Admin Trade Name Freq PRN Reason Stop Dose Admin Carvedilol 6.25 mg 09/25/17 06:54 09/25/17 09:54 Coreg - PO 6.25 mg BID [facility] Administration Docusate Sodium 100 mg 09/25/17 10:00 09/25/17 09:54 Colace - PO 100 mg BID [facility] Administration Gabapentin 300 mg 09/24/17 22:00 09/25/17 09:54 Neurontin - PO 300 mg BID [facility] Administration Hydromorphone HCl 0 mg 09/23/17 23:00 09/24/17 22:17 Dilaudid Lead Person - CONTROL ENGINEER 09/30/17 22:49 10 mg CONTROL ENGINEER [facility] Administration Protocol Potassium Chloride/Dextrose/Sod Cl 20 meq in 1,000 mls @ 100 mls/hr 09/25/17 12:15 09/25/17 12:57 D5-1/2ns+20 Meq Kcl - IV 100 mls/hr ASD[facility] Administration Ketorolac Tromethamine 30 mg 09/23/17 23:02 09/24/17 23:45 Toradol Injection - IVPUSH 09/28/17 23:01 30 mg Q6H PRN Administration PAIN LEVEL 6-10 Lisinopril 20 mg 09/25/17 06:54 09/25/17 10:05 Prinivil PO 20 mg DAILY [facility] Administration Ondansetron HCl 4 mg 09/23/17 22:48 09/24/17 16:26 Zofran Injection IVPUSH 4 mg Q6H PRN Administration NAUSEA AND/OR VOMITING Ondansetron HCl 4 mg 09/23/17 23:02 Zofran Injection IVPUSH Q6H PRN NAUSEA AND/OR VOMITING Polyethylene Glycol 17 gm 09/24/17 11:45 09/25/17 10:54 Miralax (For Daily Use) - PO 17 gm DAILY [facility] Administration Promethazine HCl 12.5 mg 09/24/17 18:16 09/24/17 18:39 Phenergan Injection - IVPUSH 12.5 mg Q4H PRN Administration NAUSEA AND/OR VOMITING Senna 2 tab 09/25/17 22:00 Senna - PO HS [facility] Objective: Vital Signs Period Temp Pulse Resp BP Sys/Dougherty Pulse Ox Last 24 Hr 98.7 F-99.1 F 77-99 15-30 116-155/62-85 100-100 Physical Exam: General: NAD, A&Ox3 Lungs: CTA bilaterally Heart: RRR, S1S2 Abd: Soft, non-tender. Normoactive bowel sounds Ext: B/l lower extremity 1+ pitting edema Neuro: CN 2-12 intact CBCD WBC 13.1 K/mm3 (4.0-10.0) H 09/25/17 05:47 RBC 3.25 M/mm3 (4.00-5.60) L 09/25/17 05:47 Hgb 9.4 GM/dL (11.7-16.9) L 09/25/17 05:47 Hct 27.7 % (35.4-49) L 09/25/17 05:47 MCV 85.1 fl (80-96) 09/25/17 05:47 MCHC 33.8 g/dl (32.0-35.9) 09/25/17 05:47 RDW 14.9 % (11.9-15.9) 09/25/17 05:47 Plt Count 90 K/MM3 (134-434) L 09/25/17 05:47 MPV 11.5 fl (7.5-11.1) H 09/25/17 05:47 CMP Sodium 142 mmol/L (136-145) 09/25/17 05:47 Potassium 4.3 mmol/L (3.5-5.1) 09/25/17 05:47 Chloride 106 mmol/L (98-107) 09/25/17 05:47 Carbon Dioxide 29 mmol/L (21-32) 09/25/17 05:47 Anion Gap 7 (8-16) L 09/25/17 05:47 BUN 13 mg/dL (7-18) D 09/25/17 05:47 Creatinine 0.8 mg/dL (0.7-1.3) D 09/25/17 05:47 Creat Clearance w eGFR > 60 (>60) 09/25/17 05:47 Random Glucose 108 mg/dL (74-106) H D 09/25/17 05:47 Calcium 7.8 mg/dL (8.5-10.1) L 09/25/17 05:47 Total Bilirubin 0.3 mg/dL (0.2-1.0) 09/25/17 05:47 AST 74 U/L (15-37) H D 09/25/17 05:47 ALT 29 U/L (12-78) 09/25/17 05:47 Alkaline Phosphatase 58 U/L (45-117) 09/25/17 05:47 Total Protein 5.6 g/dl (6.4-8.2) L 09/25/17 05:47 Albumin 2.9 g/dl (3.4-5.0) L 09/25/17 05:47 CARDIAC ENZYMES Creatine Kinase 203 IU/L (39-308) 09/23/17 07:39 Troponin I < 0.02 ng/ml (0.00-0.05) 09/23/17 07:39 Assessment: This is a 56 year old male with PMHx of HTN, chronic back pain who presented to an acute exacerbation of his back pain. Plan: 1) Acute on chronic exacerbation of back pain - S/p L1-S1 laminectomies, L4-L5 PLIF, L3, L4 Power-Sebastian osteotomies, Resection of tumor L1-S1. L1-S1 PISF on 09/23 - Pain management: Dilaudid CONTROL ENGINEER, Toradol - Incentive spirometer - Received Cefazolin post op - PT - Monitor drain output - Appreciate surgery consult 2) HTN - Continue Lisinopril - Continue Coreg 3) Obstructive sleep apnea - Cpap at night - Outpatient sleep study 4) B/l lower extremity pitting edema - Patient reports non-compliance with Lasix, he reports "normal" ECHO 12/2016 - ECHO with low normal LV EF between 50-55%, with trace TR - BNP wnl, trop negative -Add ASA once cleared by surgery - Appreciate cardiology consult 5) Thrombocytopenia - Continue to trend, if worsening consider hematology consult 6) F/E/N: - IV fluids - NPO until passing flatus 7) Prophylaxis: - SCDs ONLY - No chemical DVT prophylaxis per surgery 8) Dispo: - Requires continued inpatient care CODE STATUS: FULL CODE Visit type - Emergency Visit Emergency Visit: Yes ED Registration Date: 09/22/17 Care time: The patient presented to the Emergency Department on the above date and was hospitalized for further evaluation of their emergent condition. - New Patient This patient is new to me today: Yes Date on this admission: 09/25/17 - Critical Care Critical Care patient: No
--- NOTE | 2017-09-25 14:53 | PN ---
Physical Exam: SUBJECTIVE: Patient seen and examined Yesterday, pt developed nausea, was given anti-emetics with good effect. No acute events overnight. Pt still has not passed flatus. He states that his pain is well controlled, currently a 4-5/10. He denies chest pain, SOB, abdominal pain, n/v, and dysuria. OBJECTIVE: Vital Signs Period Temp Pulse Resp BP Sys/Dougherty Pulse Ox Last 24 Hr 98.7 F-99.1 F 77-99 15-30 116-155/62-85 100-100 GENERAL: obese middle aged male, lying flat in bed, in NAD HEENT: NC, AT LUNGS: CTAB, no rales or rhonchi HEART: Regular rate and rhythm, S1, S2 without murmur, rub or gallop. ABDOMEN: soft, NT, ND, hypoactive BS EXTREMITIES: 2+ pulses, warm, well-perfused, no edema. NEUROLOGICAL: Cranial nerves II through XII grossly intact. Normal speech, gait not observed. Laboratory Results - last 24 hr 09/24/17 09/25/17 09/25/17 16:41 05:47 05:47 WBC 13.1 H RBC 3.25 L Hgb 9.4 L Hct 27.7 L MCV 85.1 MCH 28.7 MCHC 33.8 RDW 14.9 Plt Count 90 L MPV 11.5 H Neutrophils % 78.4 D Lymphocytes % 10.6 D Monocytes % 10.7 H Eosinophils % 0.1 D Basophils % 0.2 Sodium 142 Potassium 4.3 Chloride 106 Carbon Dioxide 29 Anion Gap 7 L BUN 13 D Creatinine 0.8 D Creat Clearance w eGFR > 60 POC Glucometer [phone] Random Glucose 108 H D Calcium 7.8 L Phosphorus 3.3 D Magnesium 2.1 Total Bilirubin 0.3 AST 74 H D ALT 29 Alkaline Phosphatase 58 Total Protein 5.6 L Albumin 2.9 L Active Medications Generic Name Dose Route Start Last Admin Trade Name Freq PRN Reason Stop Dose Admin Carvedilol 6.25 mg 09/25/17 06:54 09/25/17 09:54 Coreg - PO 6.25 mg BID [facility] Administration Docusate Sodium 100 mg 09/25/17 10:00 09/25/17 09:54 Colace - PO 100 mg BID [facility] Administration Gabapentin 300 mg 09/24/17 22:00 09/25/17 09:54 Neurontin - PO 300 mg BID [facility] Administration Hydromorphone HCl 0 mg 09/23/17 23:00 09/24/17 22:17 Dilaudid Specimen Technician - FORENSIC TOXICOLOGIST 09/30/17 22:49 10 mg FORENSIC TOXICOLOGIST [facility] Administration Protocol Potassium Chloride/Dextrose/Sod Cl 20 meq in 1,000 mls @ 100 mls/hr 09/25/17 12:15 09/25/17 12:57 D5-1/2ns+20 Meq Kcl - IV 100 mls/hr ASDIR [facility] Administration Ketorolac Tromethamine 30 mg 09/23/17 23:02 09/24/17 23:45 Toradol Injection - IVPUSH 09/28/17 23:01 30 mg Q6H PRN Administration PAIN LEVEL 6-10 Lisinopril 20 mg 09/25/17 06:54 09/25/17 10:05 Prinivil PO 20 mg DAILY [facility] Administration Ondansetron HCl 4 mg 09/23/17 22:48 09/24/17 16:26 Zofran Injection IVPUSH 4 mg Q6H PRN Administration NAUSEA AND/OR VOMITING Ondansetron HCl 4 mg 09/23/17 23:02 Zofran Injection IVPUSH Q6H PRN NAUSEA AND/OR VOMITING Polyethylene Glycol 17 gm 09/24/17 11:45 09/25/17 10:54 Miralax (For Daily Use) - PO 17 gm DAILY [facility] Administration Promethazine HCl 12.5 mg 09/24/17 18:16 09/24/17 18:39 Phenergan Injection - IVPUSH 12.5 mg Q4H PRN Administration NAUSEA AND/OR VOMITING Senna 2 tab 09/25/17 22:00 Senna - PO HS [facility] ASSESSMENT/PLAN: 56M w/ hx of HTN and chronic back pain, now POD#2 s/p L1-S1 laminectomies, L4- L5 PLIF, L3, L4 Power-Sebastian osteotomies, resection of tumor L1-S1, and intra- operative durotomy for epidural lipomatosis, facet arthropathy, and severe spinal stenosis. Neuro #POD#2 s/p L1-S1 laminectomies, L4-L5 PLIF, L3, L4 Power-Sebastian osteotomies, resection of tumor L1-S1, and intra-operative durotomy -Bedrest w/head of bed flat x 48 hrs post-op -HemoVac drain to gravity; no suction. -Pain control: per anaesthesia team; FORENSIC TOXICOLOGIST, gabapentin, and toradol PRN CV #HTN -continue home lisinopril -per cards, coreg 6.25 IBD added -ASA to be resumed once hemostasis is achieved and cleared by surgery Pulm -incentive spirometry #ALEXANDER -CPAP HS Heme -Hgb of 9.4, down from 10.2. continue to monitor -platelets of 90, down from 95, continue to monitor ID -Willa-op antibiotics GI -NPO until flatus, then advance diet as tolerated -continue senna, colace, and miralax Nephro -maintain whitfield catheter FEN/ppx -D5-1/2NS w/ 20 KCl @ 100 -electrolytes wnl -NPO until flatus -no GI ppx indicated -SCDs per neurosurgery Case discussed with attending, Dr. Waldrop. -Buddy Wolf MD PGY1 ICU Team Visit type - Emergency Visit Emergency Visit: Yes ED Registration Date: 09/22/17 Care time: The patient presented to the Emergency Department on the above date and was hospitalized for further evaluation of their emergent condition. - New Patient This patient is new to me today: No - Critical Care Critical Care patient: Yes Total Critical Care Time (in minutes): 35 Critical Care Statement: The care of this patient involved high complexity decision making to prevent further life threatening deterioration of the patient 's condition and/or to evaluate & treat vital organ system(s) failure or risk of failure.
[2017-09-25] MEDS: KETOROLAC TROMETHAMINE 30 MG/1 ML VIAL IVPUSH PRN (17:31)
[2017-09-25] MEDS: SENNOSIDES 8.6MG TABLET (FP) PO SCH (21:19)
[2017-09-25] MEDS: PROMETHAZINE HCL 25 MG/1 ML VIAL IVPUSH PRN (21:19)
[2017-09-26] MEDS ORDERED: HYDROmorphone *PCA* 10MG/50ML DISP.SYRIN PCA ONE (06:17)
[2017-09-26] MEDS: HYDROmorphone *PCA* 10MG/50ML DISP.SYRIN PCA SCH (06:25)
[2017-09-26 06:57] LABS: BASO % 0.2 % (0-2.0); HEMATOCRIT 28.3 % (35.4-49); HEMOGLOBIN 9.4 GM/dL (11.7-16.9); LYMPH % 11.4 % (8-40); MCHC 33.4 g/dl (32.0-35.9); MEAN CELL VOLUME 83.9 fl (80-96); MEAN PLT VOLUME 11.3 fl (7.5-11.1); MONO % 9.4 % (3.8-10.2); PLATELET COUNT 96 K/MM3 (134-434); RBC 3.37 M/mm3 (4.00-5.60); RDW 14.5 % (11.9-15.9); WHITE BLOOD COUNT 13.5 K/mm3 (4.0-10.0)
[2017-09-26 07:19] LABS: ALBUMIN 2.8 g/dl (3.4-5.0); ALK PHOS 73 U/L (45-117); ANION GAP 9 (8-16); BILIRUBIN,TOTAL 0.5 mg/dL (0.2-1.0); BLOOD UREA NITROGEN 11 mg/dL (7-18); CALCIUM 8.3 mg/dL (8.5-10.1); CHLORIDE 102 mmol/L (98-107); CO2 27 mmol/L (21-32); CREATININE 0.7 mg/dL (0.7-1.3); GLUCOSE,RANDOM 126 mg/dL (74-106); MAGNESIUM 2.2 mg/dL (1.8-2.4); PHOSPHOROUS 1.9 mg/dL (2.5-4.9); POTASSIUM 4.2 mmol/L (3.5-5.1); SGOT/AST 69 U/L (15-37); SGPT/ALT 28 U/L (12-78); SODIUM 138 mmol/L (136-145)
--- NOTE | 2017-09-26 08:15 | PN ---
Physical Exam: SUBJECTIVE: Pain 6/10, comfortable otherwise whitfield removed OBJECTIVE: hypertensive this a.m. , coreq increased to 12.5 BID from 6.25mg BID Patient alert, awake, pain controlled with POTATO CHIP COOKER MACHINE Vital Signs Period Temp Pulse Resp BP Sys/Dougherty Pulse Ox Last 24 Hr 98.5 F-99.7 F 89-109 16-27 124-182/72-104 100-100 GENERAL: The patient is awake, alert, and fully oriented, in no acute distress. HEAD: Normal with no signs of trauma. EYES: PERRL, extraocular movements intact, sclera anicteric, conjunctiva clear. No ptosis. ENT: Ears normal, nares patent, oropharynx clear without exudates, moist mucous membranes. NECK: Trachea midline, full range of motion, supple. LUNGS: Breath sounds equal anteriorly HEART: Regular rate and rhythm ABDOMEN: Soft, nontender, nondistended, normoactive bowel sounds EXTREMITIES: no edema. NEUROLOGICAL: Normal speech, gait not observed. PSYCH: Normal mood, normal affect. SKIN: Warm, dry, normal turgor, no rashes or lesions noted Laboratory Results - last 24 hr 09/25/17 09/25/17 09/26/17 16:43 21:22 05:55 WBC 13.5 H RBC 3.37 L Hgb 9.4 L Hct 28.3 L MCV 83.9 MCH 28.0 MCHC 33.4 RDW 14.5 Plt Count 96 L MPV 11.3 H Neutrophils % 79.0 Lymphocytes % 11.4 Monocytes % 9.4 Eosinophils % 0.0 D Basophils % 0.2 Sodium Potassium Chloride Carbon Dioxide Anion Gap BUN Creatinine Creat Clearance w eGFR POC Glucometer 149.85151 149.03588 Random Glucose Calcium Phosphorus Magnesium Total Bilirubin AST ALT Alkaline Phosphatase Total Protein Albumin 09/26/17 05:55 WBC RBC Hgb Hct MCV MCH MCHC RDW Plt Count MPV Neutrophils % Lymphocytes % Monocytes % Eosinophils % Basophils % Sodium 138 Potassium 4.2 Chloride 102 Carbon Dioxide 27 Anion Gap 9 BUN 11 Creatinine 0.7 Creat Clearance w eGFR > 60 POC Glucometer Random Glucose 126 H Calcium 8.3 L Phosphorus 1.9 L D Magnesium 2.2 Total Bilirubin 0.5 D AST 69 H ALT 28 Alkaline Phosphatase 73 D Total Protein 6.0 L Albumin 2.8 L Active Medications Generic Name Dose Route Start Last Admin Trade Name Freq PRN Reason Stop Dose Admin Carvedilol 6.25 mg 09/25/17 06:54 09/25/17 21:20 Coreg - PO 6.25 mg BID [facility] Administration Docusate Sodium 100 mg 09/25/17 10:00 09/25/17 21:19 Colace - PO 100 mg BID [facility] Administration Gabapentin 300 mg 09/24/17 22:00 09/25/17 21:19 Neurontin - PO 300 mg BID [facility] Administration Hydromorphone HCl 0 mg 09/23/17 23:00 09/26/17 06:25 Dilaudid Tag Stringer - POTATO CHIP COOKER MACHINE 09/30/17 22:49 10 mg POTATO CHIP COOKER MACHINE [facility] Administration Protocol Potassium Chloride/Dextrose/Sod Cl 20 meq in 1,000 mls @ 100 mls/hr 09/25/17 12:15 09/25/17 12:57 D5-1/2ns+20 Meq Kcl - IV 100 mls/hr [facility] Administration Ketorolac Tromethamine 30 mg 09/23/17 23:02 09/25/17 17:31 Toradol Injection - IVPUSH 09/28/17 23:01 30 mg Q6H PRN Administration PAIN LEVEL 6-10 Lisinopril 20 mg 09/25/17 06:54 09/25/17 10:05 Prinivil PO 20 mg DAILY [facility] Administration Ondansetron HCl 4 mg 09/23/17 22:48 09/24/17 16:26 Zofran Injection IVPUSH 4 mg Q6H PRN Administration NAUSEA AND/OR VOMITING Ondansetron HCl 4 mg 09/23/17 23:02 Zofran Injection IVPUSH Q6H PRN NAUSEA AND/OR VOMITING Polyethylene Glycol 17 gm 09/24/17 11:45 09/25/17 10:54 Miralax (For Daily Use) - PO 17 gm DAILY [facility] Administration Promethazine HCl 12.5 mg 09/24/17 18:16 09/25/17 21:19 Phenergan Injection - IVPUSH 12.5 mg Q4H PRN Administration NAUSEA AND/OR VOMITING Senna 2 tab 09/25/17 22:00 09/25/17 21:19 Senna - PO 2 tab HS [facility] Administration ASSESSMENT/PLAN: Patient is a 56 year old male with a significant past medical history of hypertension, chronic back pain. He is s/p L1-S1 laminectomies, L4-L5 PLIF, L3 , L4 Power-Sebastian osteotomies, Resection of tumor L1-S1. L1-S1 PISF on 09/[address] Peters. Ortho: s/p L1-S1 laminectomies, L4-L5 PLIF, L3, L4 Power-Sebastian osteotomies, Resection of tumor L1-S1. L1-S1 PISF on 09/[address] Peters. Pain management as per anesthesia Monitor in ICU as per surgery Monitor drain output whitfield removed Bowel regimen Surgery following Card: Hypertension, BP elevated today On Lisinopril, coreq increased today Cardiac workup outpatient once patient is fully ambulatory Cardiology following Pulm: Outpatient sleep study once acute medical issues resolve CPAP at garbage stoker respiratory status Incentive spirometer Heme: Monitor hmg/hct, low stable Thrombocytopenia @ 96, continue to trend F.E.N. Fluids: On clears, d/c ivf Electrolytes: monitor Nutrition: clears, advance as tolerated Prohy: SCDS GI ppx deferred Visit type - Emergency Visit Emergency Visit: Yes ED Registration Date: 09/22/17 Care time: The patient presented to the Emergency Department on the above date and was hospitalized for further evaluation of their emergent condition. - New Patient This patient is new to me today: Yes Date on this admission: 09/26/17 - Critical Care Critical Care patient: Yes Total Critical Care Time (in minutes): 45 Critical Care Statement: The care of this patient involved high complexity decision making to prevent further life threatening deterioration of the patient 's condition and/or to evaluate & treat vital organ system(s) failure or risk of failure.
[2017-09-26] MEDS: KETOROLAC TROMETHAMINE 30 MG/1 ML VIAL IVPUSH PRN (09:11)
[2017-09-26] MEDS: DOCUSATE SODIUM 100 MG CAPSULE (FP) PO SCH ×2 (09:11→21:44)
[2017-09-26] MEDS: LISINOPRIL 20 MG TABLET (FP) PO SCH (09:12)
[2017-09-26] MEDS: GABAPENTIN 300 MG CAPSULE (FP) PO SCH ×2 (09:12→21:44)
[2017-09-26] MEDS ORDERED: PT OWN MED DRAWER 7, Y5N ONE (11:24)
--- NOTE | 2017-09-26 12:02 | PN ---
Teaching Attending Note Name of Resident: Buddy Wolf ATTENDING PHYSICIAN STATEMENT I saw and evaluated the patient. I reviewed the resident's note and discussed the case with the resident. I agree with the resident's findings and plan as documented. SUBJECTIVE: Pt seen and examined in the ICU. Pain controlled. No fevers or chills. No nausea or vomiting. +flatus but no BM yet. OBJECTIVE: Last Vital Signs Temp Pulse Resp BP Pulse Ox 99.5 F 96 H 24 157/86 100 09/26/17 10:00 09/26/17 10:00 09/26/17 10:00 09/26/17 10:00 09/25/17 19:49 Intake & Output 09/23/17 09/24/17 09/25/17 09/26/17 23:59 23:59 23:59 23:59 Intake Total 6650 2825 1241 1200 Output Total 1970 2145 2280 435 Balance 4680 680 1039 765 Weight 125.191 kg Gen: NAD at rest Heart: RRR Lung: decreased breath sounds at the bases Abd: soft, nontender Ext: no edema CBC, BMP 09/26/17 05:55 09/26/17 05:55 Active Medications Carvedilol (Coreg -) 12.5 mg PO BID [facility] Docusate Sodium (Colace -) 100 mg PO BID [facility] Last Admin: 09/26/17 09:11 Dose: 100 mg Gabapentin (Neurontin -) 300 mg PO BID [facility] Last Admin: 09/26/17 09:12 Dose: 300 mg Hydromorphone HCl (Dilaudid Aboriginal Education Worker Coordinator -) 0 mg CALENDER LET OFF OPERATOR CALENDER LET OFF OPERATOR [facility] PRN Reason: Protocol Stop: 09/30/17 22:49 Last Admin: 09/26/17 06:25 Dose: 10 mg Potassium Chloride/Dextrose/Sod Cl (D5-1/2ns+20 Meq Kcl -) 20 meq in 1,000 mls @ 100 mls/hr IV [facility] Last Admin: 09/25/17 12:57 Dose: 100 mls/hr Lisinopril (Prinivil) 20 mg PO DAILY [facility] Last Admin: 09/26/17 09:12 Dose: 20 mg Ondansetron HCl (Zofran Injection) 4 mg IVPUSH Q6H PRN PRN Reason: NAUSEA AND/OR VOMITING Last Admin: 09/24/17 16:26 Dose: 4 mg Ondansetron HCl (Zofran Injection) 4 mg IVPUSH Q6H PRN PRN Reason: NAUSEA AND/OR VOMITING Polyethylene Glycol (Miralax (For Daily Use) -) 17 gm PO DAILY [facility] Last Admin: 09/25/17 10:54 Dose: 17 gm Promethazine HCl (Phenergan Injection -) 12.5 mg IVPUSH Q4H PRN PRN Reason: NAUSEA AND/OR VOMITING Last Admin: 09/25/17 21:19 Dose: 12.5 mg Senna (Senna -) 2 tab PO HS [facility] Last Admin: 09/25/17 21:19 Dose: 2 tab ASSESSMENT AND PLAN: Lumbar Spinal Stenosis s/p L1-S1 Laminectomies/tumor resection/L1-S1 PISF HTN Obstructive Sleep Apnea - pain control - incentive spirometry - start PO - whitfield when OOB - supine positioning - monitor drain output - mechanical DVT prophylaxis - bowel regimen - CPAP at night - disposition per surgery
[2017-09-26] MEDS: CARVEDILOL 6.25 MG TABLET (FP) PO SCH ×2 (12:09→21:44)
[2017-09-26] MEDS ORDERED: HEMOQUE CONTROL SOLUTION ONE (12:14)
--- NOTE | 2017-09-26 12:46 | PN ---
Progress Note, Physician Chief Complaint: Events noted Not in distress History of Present Illness: Patient was seen and examined. Awake and alert. Chart was reviewed Denies chest pain, SOB or palpitations - Current Medication List Current Medications: Active Medications Carvedilol (Coreg -) 12.5 mg PO BID [facility] Last Admin: 09/26/17 12:09 Dose: 12.5 mg Docusate Sodium (Colace -) 100 mg PO BID [facility] Last Admin: 09/26/17 09:11 Dose: 100 mg Gabapentin (Neurontin -) 300 mg PO BID [facility] Last Admin: 09/26/17 09:12 Dose: 300 mg Hydromorphone HCl (Dilaudid Chain Hoist Operator -) 0 mg CAFETERIA ASSISTANT CAFETERIA ASSISTANT [facility] PRN Reason: Protocol Stop: 09/30/17 22:49 Last Admin: 09/26/17 06:25 Dose: 10 mg Potassium Chloride/Dextrose/Sod Cl (D5-1/2ns+20 Meq Kcl -) 20 meq in 1,000 mls @ 100 mls/hr IV ASDIR [facility] Last Admin: 09/25/17 12:57 Dose: 100 mls/hr Lisinopril (Prinivil) 20 mg PO DAILY [facility] Last Admin: 09/26/17 09:12 Dose: 20 mg Ondansetron HCl (Zofran Injection) 4 mg IVPUSH Q6H PRN PRN Reason: NAUSEA AND/OR VOMITING Last Admin: 09/24/17 16:26 Dose: 4 mg Ondansetron HCl (Zofran Injection) 4 mg IVPUSH Q6H PRN PRN Reason: NAUSEA AND/OR VOMITING Polyethylene Glycol (Miralax (For Daily Use) -) 17 gm PO DAILY [facility] Last Admin: 09/25/17 10:54 Dose: 17 gm Promethazine HCl (Phenergan Injection -) 12.5 mg IVPUSH Q4H PRN PRN Reason: NAUSEA AND/OR VOMITING Last Admin: 09/25/17 21:19 Dose: 12.5 mg Senna (Senna -) 2 tab PO [facility] Last Admin: 09/25/17 21:19 Dose: 2 tab - Objective Vital Signs: Vital Signs Temperature 99.5 F 09/26/17 10:00 Pulse Rate 96 H 09/26/17 10:00 Respiratory Rate 24 09/26/17 10:00 Blood Pressure 157/86 09/26/17 10:00 O2 Sat by Pulse Oximetry (%) 95 09/26/17 09:00 Constitutional: Yes: Well Nourished Eyes: Yes: PERRL HENT: Yes: Atraumatic Neck: Yes: Supple Cardiovascular: Yes: Regular Rate and Rhythm, S1, S2 Respiratory: Yes: CTA Bilaterally Gastrointestinal: Yes: Normal Bowel Sounds, Soft. No: Tenderness Musculoskeletal: Yes: Back Pain Edema: No Labs: CBC, BMP 09/26/17 05:55 09/26/17 05:55 Problem List - Problems (1) S/P lumbar laminectomy Code(s): Z98.890 - OTHER SPECIFIED POSTPROCEDURAL STATES (2) Lumbar stenosis Code(s): M48.061 - SPINAL STENOSIS, LUMBAR REGION WITHOUT NEUROGENIC ALINA (3) HTN (hypertension) Code(s): I10 - ESSENTIAL (PRIMARY) HYPERTENSION Qualifiers: Hypertension type: essential hypertension Qualified Code(s): I10 - Essential (primary) hypertension (4) Thrombocytopenia Code(s): D69.6 - THROMBOCYTOPENIA, UNSPECIFIED Assessment/Plan 1. Lumbar spinal stenosis with neurogenic claudication, POD#3 post Epidural lipomatosis post L1-S1 laminectomies, L4-L5 PLIF (posterior lumbar interbody fusion), L3, L4 Power-Sebastian osteotomies, Resection of tumor L1-S1, L1-S1 PISF and Complex wound closure 2. LV systolic/diastolic dysfunction with class 0 NYHA classification LV failure , compensated/euvolemic 3. CAD angina pectoris to be excluded as culprit for the above noted LV dysfunction 4. HTN 5. Peripheral edema most likely related to chronic venous insufficiency 6. Thrombocytopenia PLAN: 1. Pain management and post operative care 2. Continue Lisinopril as tolerated 3. Continue Coreg as tolerated 4. Add ASA once hemostasis is achieved and cleared by surgery 5. As outlined additional cardiovascular evaluation is recommended including myocardial perfusion imaging study to be performed as outpatient once patient is fully ambulatory Further evaluation to follow Kalpesh Trevino MD
--- NOTE | 2017-09-26 14:46 | PN ---
Physical Exam: SUBJECTIVE: Patient seen and examined No acute events overnight. Pt states that pain is well controlled and endorses passing flatus. He denies chest pain, SOB, abdominal pain, n/v/d, dysuria, leg numbness, tingling, or weakness. OBJECTIVE: Vital Signs Period Temp Pulse Resp BP Sys/Dougherty Pulse Ox Last 24 Hr 98.5 F-99.7 F 90-109 18-27 138-182/72-104 95-100 GENERAL: obese middle aged male, lying flat in bed, in NAD HEENT: NC, AT LUNGS: CTAB, no rales or rhonchi HEART: Regular rate and rhythm, S1, S2 without murmur, rub or gallop. ABDOMEN: soft, NT, ND, normoactive BS EXTREMITIES: 2+ pulses, warm, well-perfused, no edema. NEUROLOGICAL: Cranial nerves II through XII grossly intact. Normal speech, gait not observed. Laboratory Results - last 24 hr 09/25/17 09/25/17 09/26/17 16:43 21:22 05:55 WBC 13.5 H RBC 3.37 L Hgb 9.4 L Hct 28.3 L MCV 83.9 MCH 28.0 MCHC 33.4 RDW 14.5 Plt Count 96 L MPV 11.3 H Neutrophils % 79.0 Lymphocytes % 11.4 Monocytes % 9.4 Eosinophils % 0.0 D Basophils % 0.2 Sodium Potassium Chloride Carbon Dioxide Anion Gap BUN Creatinine Creat Clearance w eGFR POC Glucometer 149.85940 149.38185 Random Glucose Calcium Phosphorus Magnesium Total Bilirubin AST ALT Alkaline Phosphatase Total Protein Albumin 09/26/17 09/26/17 05:55 05:57 WBC RBC Hgb Hct MCV MCH MCHC RDW Plt Count MPV Neutrophils % Lymphocytes % Monocytes % Eosinophils % Basophils % Sodium 138 Potassium 4.2 Chloride 102 Carbon Dioxide 27 Anion Gap 9 BUN 11 Creatinine 0.7 Creat Clearance w eGFR > 60 POC Glucometer [phone] Random Glucose 126 H Calcium 8.3 L Phosphorus 1.9 L D Magnesium 2.2 Total Bilirubin 0.5 D AST 69 H ALT 28 Alkaline Phosphatase 73 D Total Protein 6.0 L Albumin 2.8 L Active Medications Generic Name Dose Route Start Last Admin Trade Name Freq PRN Reason Stop Dose Admin Carvedilol 12.5 mg 09/26/17 09:45 09/26/17 12:09 Coreg - PO 12.5 mg BID MICHELL Administration Docusate Sodium 100 mg 09/25/17 10:00 09/26/17 09:11 Colace - PO 100 mg BID MICHELL Administration Gabapentin 300 mg 09/24/17 22:00 09/26/17 09:12 Neurontin - PO 300 mg BID MICHELL Administration Hydromorphone HCl 0 mg 09/23/17 23:00 09/26/17 06:25 Dilaudid Memorial Designer - SANITATION WORKER CLEANING EQUIPMENT 09/30/17 22:49 10 mg SANITATION WORKER CLEANING EQUIPMENT MICHELL Administration Protocol Potassium Chloride/Dextrose/Sod Cl 20 meq in 1,000 mls @ 100 mls/hr 09/25/17 12:15 09/25/17 12:57 D5-1/2ns+20 Meq Kcl - IV 100 mls/hr ASDIR MICHELL Administration Lisinopril 20 mg 09/25/17 06:54 09/26/17 09:12 Prinivil PO 20 mg DAILY MICHELL Administration Ondansetron HCl 4 mg 09/23/17 22:48 09/24/17 16:26 Zofran Injection IVPUSH 4 mg Q6H PRN Administration NAUSEA AND/OR VOMITING Ondansetron HCl 4 mg 09/23/17 23:02 Zofran Injection IVPUSH Q6H PRN NAUSEA AND/OR VOMITING Polyethylene Glycol 17 gm 09/24/17 11:45 09/25/17 10:54 Miralax (For Daily Use) - PO 17 gm DAILY MICHELL Administration Promethazine HCl 12.5 mg 09/24/17 18:16 09/25/17 21:19 Phenergan Injection - IVPUSH 12.5 mg Q4H PRN Administration NAUSEA AND/OR VOMITING Senna 2 tab 09/25/17 22:00 09/25/17 21:19 Senna - PO 2 tab HS MICHELL Administration ASSESSMENT/PLAN: 56M w/ hx of HTN and chronic back pain, now POD#3 s/p L1-S1 laminectomies, L4- L5 PLIF, L3, L4 Power-Sebastian osteotomies, resection of tumor L1-S1, and intra- operative durotomy for epidural lipomatosis, facet arthropathy, and severe spinal stenosis. Neuro #POD#3 s/p L1-S1 laminectomies, L4-L5 PLIF, L3, L4 Power-Sebastian osteotomies, resection of tumor L1-S1, and intra-operative durotomy -Bedrest w/head of bed flat x 48 hrs post-op -HemoVac drain to gravity; no suction. -Pain control: per anaesthesia team; SANITATION WORKER CLEANING EQUIPMENT, gabapentin, and toradol PRN CV #HTN -continue home lisinopril -continue coreg 12.5 -ASA to be resumed once hemostasis is achieved and cleared by surgery Pulm -incentive spirometry #ALEXANDER -CPAP HS ID afebrile, leukocytosis of 13.5 -continue to monitor Heme -Hgb of 9.4, continue to monitor -platelets of 96, continue to monitor GI -passing flatus, started on clears -continue senna, colace, and miralax Nephro -whitfield catheter removed FEN/ppx -D5-1/2NS w/ 20 KCl @ 100 -electrolytes wnl -clears -no GI ppx indicated -SCDs per neurosurgery Case discussed with attending, Dr. Waldrop. -Buddy Wolf MD PGY1 ICU Team Visit type - Emergency Visit Emergency Visit: Yes ED Registration Date: 09/22/17 Care time: The patient presented to the Emergency Department on the above date and was hospitalized for further evaluation of their emergent condition. - New Patient This patient is new to me today: No - Critical Care Critical Care patient: Yes Total Critical Care Time (in minutes): 36 Critical Care Statement: The care of this patient involved high complexity decision making to prevent further life threatening deterioration of the patient 's condition and/or to evaluate & treat vital organ system(s) failure or risk of failure.
[2017-09-26] MEDS: ONDANSETRON 4 MG/2 ML VIAL IVPUSH PRN (15:18)
--- NOTE | 2017-09-26 15:18 | PN ---
Progress Note, Physician Chief Complaint: POD#3 s/p L1-S1 laminectomy/fusion - Current Medication List Current Medications: Active Medications Carvedilol (Coreg -) 12.5 mg PO BID [facility] Last Admin: 09/26/17 12:09 Dose: 12.5 mg Docusate Sodium (Colace -) 100 mg PO BID [facility] Last Admin: 09/26/17 09:11 Dose: 100 mg Gabapentin (Neurontin -) 300 mg PO BID [facility] Last Admin: 09/26/17 09:12 Dose: 300 mg Hydromorphone HCl (Dilaudid Cartridge Loading Operator -) 0 mg CLINICAL CYTOGENETICIST CLINICAL CYTOGENETICIST MICHELL PRN Reason: Protocol Stop: 09/30/17 22:49 Last Admin: 09/26/17 06:25 Dose: 10 mg Potassium Chloride/Dextrose/Sod Cl (D5-1/2ns+20 Meq Kcl -) 20 meq in 1,000 mls @ 100 mls/hr IV ASDIR [facility] Last Admin: 09/25/17 12:57 Dose: 100 mls/hr Lisinopril (Prinivil) 20 mg PO DAILY [facility] Last Admin: 09/26/17 09:12 Dose: 20 mg Ondansetron HCl (Zofran Injection) 4 mg IVPUSH Q6H PRN PRN Reason: NAUSEA AND/OR VOMITING Last Admin: 09/24/17 16:26 Dose: 4 mg Ondansetron HCl (Zofran Injection) 4 mg IVPUSH Q6H PRN PRN Reason: NAUSEA AND/OR VOMITING Polyethylene Glycol (Miralax (For Daily Use) -) 17 gm PO DAILY [facility] Last Admin: 09/25/17 10:54 Dose: 17 gm Promethazine HCl (Phenergan Injection -) 12.5 mg IVPUSH Q4H PRN PRN Reason: NAUSEA AND/OR VOMITING Last Admin: 09/25/17 21:19 Dose: 12.5 mg Senna (Senna -) 2 tab PO HS [facility] Last Admin: 09/25/17 21:19 Dose: 2 tab - Objective Vital Signs: Vital Signs Temperature 99.5 F 09/26/17 10:00 Pulse Rate 90 09/26/17 12:00 Respiratory Rate 19 09/26/17 12:00 Blood Pressure 166/85 09/26/17 12:00 O2 Sat by Pulse Oximetry (%) 95 09/26/17 09:00 Labs: CBC, BMP 09/26/17 05:55 09/26/17 05:55 Assessment/Plan Pain well controlled with CLINICAL CYTOGENETICIST. Will continue for now
[2017-09-26] MEDS ORDERED: HEMOQUE TEST 1 EACH EACH ONE (18:06)
[2017-09-26] MEDS: SENNOSIDES 8.6MG TABLET (FP) PO SCH (21:44)
--- NOTE | 2017-09-26 23:32 | PN ---
Progress Note (short form) - Note Progress Note: 56M s/p L1-S1 laminectomies, L4-L5 PLIF, L3, L4 Power-Sebastian osteotomies, Resection of tumor L1-S1, L1-S1 PISF POD #2. *Intra-operative durotomy* (+) Incisional back pain. (-) Leg pain nor paraesthesias. Pt. denies overnight history of headache, chest pain, shortness of breath, nausea, vomiting, chills, & sweats. (+) Gaviria catheter; (-) Flatus; (-) BM. All labs & vital signs reviewed. PE: AAO X 3, NAD. Lumbar Spine: Dressing C/D/I. Drain intact & in place. B/L LE sensorimotor & vascular exams at baseline. Able to SLR, flex & extend both knees & ankles. 56M s/p L1-S1 laminectomies, L4-L5 PLIF, L3, L4 Power-Sebastian osteotomies, Resection of tumor L1-S1, L1-S1 PISF POD #2. -HemoVac drain to gravity; no suction. -OK to progressively raise head of bed as tolerated. -Pain control: per anaesthesia team; CARBON BRUSHES ASSEMBLER. -Mechanical DVT PPx only: STACEY's, SCD's. -Incentive spirometry. -Clear liquid diet; advance as tolerated.. -Maintain Gaviria catheter. -f/u AM labs. -f/u drain output. -Care per ICU, medical hospitalist team. -Discharge planning. -Will follow. Trip Peters MD (Orthopaedic Surgery).
[2017-09-27 06:48] LABS: ALBUMIN 2.6 g/dl (3.4-5.0); ANION GAP 6 (8-16); BILIRUBIN,TOTAL 0.3 mg/dL (0.2-1.0); BLOOD UREA NITROGEN 10 mg/dL (7-18); CALCIUM 7.8 mg/dL (8.5-10.1); CHLORIDE 102 mmol/L (98-107); CO2 28 mmol/L (21-32); CREATININE 0.6 mg/dL (0.7-1.3); GLUCOSE,RANDOM 127 mg/dL (74-106); MAGNESIUM 2.1 mg/dL (1.8-2.4); PHOSPHOROUS 2.6 mg/dL (2.5-4.9); SGOT/AST 52 U/L (15-37); SGPT/ALT 32 U/L (12-78); SODIUM 136 mmol/L (136-145); TOT PROT 5.8 g/dl (6.4-8.2)
[2017-09-27 06:49] LABS: ALK PHOS 75 U/L (45-117)
[2017-09-27 06:51] LABS: BASO % 0.2 % (0-2.0); EOS % 0.3 % (0-4.5); HEMATOCRIT 26.2 % (35.4-49); HEMOGLOBIN 8.8 GM/dL (11.7-16.9); LYMPH % 14.5 % (8-40); MCH 28.5 pg (25.7-33.7); MCHC 33.7 g/dl (32.0-35.9); MEAN CELL VOLUME 84.7 fl (80-96); MEAN PLT VOLUME 11.9 fl (7.5-11.1); MONO % 10.1 % (3.8-10.2); NEUT % 74.9 % (42.8-82.8); PLATELET COUNT 114 K/MM3 (134-434); RDW 14.8 % (11.9-15.9); WHITE BLOOD COUNT 11.3 K/mm3 (4.0-10.0)
[2017-09-27] MEDS ORDERED: oxyCODONE HCL 5 MG TABLET PO PRN (09:09)
--- NOTE | 2017-09-27 09:14 | PN ---
Progress Note (short form) - Note Progress Note: ANESTHESIOLOGY 56M s/p L1-S1 laminectomy and fusion POD #4 on dilaudid PLATE FURNACE OPERATOR for pain control. Some N/V yesterday now resolved. Pain 0/10 at the moment. Has not yet been OOB or seen PT. Vital Signs Temperature 98.1 F 09/27/17 06:00 Pulse Rate 77 09/27/17 06:00 Respiratory Rate 20 09/27/17 06:00 Blood Pressure 180/84 09/27/17 06:00 O2 Sat by Pulse Oximetry (%) 99 09/26/17 22:54 Active Medications Acetaminophen (Tylenol -) 1,000 mg PO Q6H PRN PRN Reason: PAIN Carvedilol (Coreg -) 12.5 mg PO BID [facility] Last Admin: 09/26/17 21:44 Dose: 12.5 mg Docusate Sodium (Colace -) 100 mg PO BID [facility] Last Admin: 09/26/17 21:44 Dose: 100 mg Gabapentin (Neurontin -) 300 mg PO BID [facility] Last Admin: 09/26/17 21:44 Dose: 300 mg Potassium Chloride/Dextrose/Sod Cl (D5-1/2ns+20 Meq Kcl -) 20 meq in 1,000 mls @ 100 mls/hr IV ASDIR [facility] Last Admin: 09/25/17 12:57 Dose: 100 mls/hr Lisinopril (Prinivil) 20 mg PO DAILY [facility] Last Admin: 09/26/17 09:12 Dose: 20 mg Ondansetron HCl (Zofran Injection) 4 mg IVPUSH Q6H PRN PRN Reason: NAUSEA AND/OR VOMITING Oxycodone HCl (Roxicodone -) 10 mg PO Q4H PRN PRN Reason: PAIN LEVEL 6-10 Oxycodone HCl (Roxicodone -) 5 mg PO Q4H PRN PRN Reason: PAIN LEVEL 4 - 6 Polyethylene Glycol (Miralax (For Daily Use) -) 17 gm PO DAILY [facility] Last Admin: 09/25/17 10:54 Dose: 17 gm Promethazine HCl (Phenergan Injection -) 12.5 mg IVPUSH Q4H PRN PRN Reason: NAUSEA AND/OR VOMITING Last Admin: 09/25/17 21:19 Dose: 12.5 mg Senna (Senna -) 2 tab PO HS [facility] Last Admin: 09/26/17 21:44 Dose: 2 tab Gen: Awake, alert, NAD Pain controlled with conservative use of PLATE FURNACE OPERATOR. - D/C PLATE FURNACE OPERATOR - Start PO analgesics - Anesthesiology signing off.
--- NOTE | 2017-09-27 09:28 | PATH ---
Surgical Pathology Report Patient Name: MINE CALLOWAY [facility]. Rec. #: [id number] /Age/Gender: 1960 (Age: 56) / M Account: [id number] [facility] Taken: 09/23/2017 Received: 09/24/2017 Reported: 09/27/2017 Physicians: Trip Peters M.D. Specimen(s) Received A: EPIDURAL LIPOMATOSIS B: DISC INTERVERTEBRAL Clinical History None given Final Diagnosis A. SOFT TISSUE, EPIDURAL, EXCISION: BENIGN ADIPOSE TISSUE, ALONG WITH FIBROCARTILAGINOUS TISSUE, SYNOVIUM, AND MINUTE FRAGMENT OF BONE. B. INTERVERTEBRAL DISC, L1-S1, EXCISION: PORTIONS OF INTERVERTEBRAL DISC, AND MINUTE FRAGMENTS OF BONE. Electronically Signed Victorino Tello M.D. Gross Description A. Received in formalin labeled "epidural lipomatosis," is a 1.7 x 1.2 x 0.3 cm aggregate of marin-yellow soft tissue fragments. The specimen is entirely submitted in one cassette. B. Received in formalin labeled "L1-S1 intravertebral disc," is a 3.5 x 2.7 x 0.3 cm aggregate of marin fragments of fibrocartilaginous tissue. A fundraising sale representative portion is submitted in one cassette. /09/24/201709/24/2017
[2017-09-27] MEDS: POLYETHYLENE GLYCOL 3350 119 GM BTL PO SCH ×2 (10:02→10:50)
[2017-09-27] MEDS: CARVEDILOL 6.25 MG TABLET (FP) PO SCH ×3 (10:02→22:23)
[2017-09-27] MEDS: DOCUSATE SODIUM 100 MG CAPSULE (FP) PO SCH ×2 (10:47→22:23)
[2017-09-27] MEDS: LISINOPRIL 20 MG TABLET (FP) PO SCH (10:47)
[2017-09-27] MEDS: GABAPENTIN 300 MG CAPSULE (FP) PO SCH ×2 (10:48→22:23)
[2017-09-27] MEDS: D5-1/2NS+20 MEQ KCL - 20 MEQ/1,000 ML INFUS.BAG IV SCH ×2 (10:53→17:00)
--- NOTE | 2017-09-27 13:03 | PN ---
Teaching Attending Note Name of Resident: Buddy Wolf ATTENDING PHYSICIAN STATEMENT I saw and evaluated the patient. I reviewed the resident's note and discussed the case with the resident. I agree with the resident's findings and plan as documented. SUBJECTIVE: Patient seen and examined in the ICU. Pain seems controlled at present. No fevers or chills. No nausea or vomiting today. Tolerated some P intake this AM. OBJECTIVE: Intake & Output 09/24/17 09/25/17 09/26/17 09/27/17 23:59 23:59 23:59 23:59 Intake Total 2825 1241 2900 700 Output Total 2145 2280 1795 2000 Balance 680 -1039 1105 -1300 Last Vital Signs Temp Pulse Resp BP Pulse Ox 99.5 F 74 20 115/69 99 09/27/17 10:00 09/27/17 12:00 09/27/17 12:00 09/27/17 12:00 09/26/17 22:54 Active Medications Acetaminophen (Tylenol -) 1,000 mg PO Q6H PRN PRN Reason: PAIN Carvedilol (Coreg -) 12.5 mg PO BID [facility] Last Admin: 09/27/17 10:47 Dose: 12.5 mg Docusate Sodium (Colace -) 100 mg PO BID [facility] Last Admin: 09/27/17 10:47 Dose: 100 mg Gabapentin (Neurontin -) 300 mg PO BID [facility] Last Admin: 09/27/17 10:48 Dose: 300 mg Potassium Chloride/Dextrose/Sod Cl (D5-1/2ns+20 Meq Kcl -) 20 meq in 1,000 mls @ 100 mls/hr IV ASDIR [facility] Last Admin: 09/27/17 10:53 Dose: 100 mls/hr Lisinopril (Prinivil) 20 mg PO DAILY [facility] Last Admin: 09/27/17 10:47 Dose: 20 mg Ondansetron HCl (Zofran Injection) 4 mg IVPUSH Q6H PRN PRN Reason: NAUSEA AND/OR VOMITING Oxycodone HCl (Roxicodone -) 10 mg PO Q4H PRN PRN Reason: PAIN LEVEL 6-10 Oxycodone HCl (Roxicodone -) 5 mg PO Q4H PRN PRN Reason: PAIN LEVEL 4 - 6 Polyethylene Glycol (Miralax (For Daily Use) -) 17 gm PO DAILY [facility] Last Admin: 09/27/17 10:50 Dose: 17 gm Promethazine HCl (Phenergan Injection -) 12.5 mg IVPUSH Q4H PRN PRN Reason: NAUSEA AND/OR VOMITING Last Admin: 09/25/17 21:19 Dose: 12.5 mg Senna (Senna -) 2 tab PO HS MICHELL Last Admin: 09/26/17 21:44 Dose: 2 tab Gen: NAD at rest Heart: RRR Lung: decreased breath sounds at the bases Abd: soft, nontender Ext: no edema Laboratory Results - last 24 hr 09/26/17 09/26/17 09/27/17 05:57 18:09 06:00 WBC 11.3 H RBC 3.10 L Hgb 8.8 L Hct 26.2 L MCV 84.7 MCH 28.5 MCHC 33.7 RDW 14.8 Plt Count 114 L MPV 11.9 H Neutrophils % 74.9 Lymphocytes % 14.5 D Monocytes % 10.1 Eosinophils % 0.3 D Basophils % 0.2 Sodium Potassium Chloride Carbon Dioxide Anion Gap BUN Creatinine Creat Clearance w eGFR POC Glucometer 155.51887 154.94098 Random Glucose Calcium Phosphorus Magnesium Total Bilirubin AST ALT Alkaline Phosphatase Total Protein Albumin 09/27/17 06:00 WBC RBC Hgb Hct MCV MCH MCHC RDW Plt Count MPV Neutrophils % Lymphocytes % Monocytes % Eosinophils % Basophils % Sodium 136 Potassium 4.0 Chloride 102 Carbon Dioxide 28 Anion Gap 6 L BUN 10 Creatinine 0.6 L Creat Clearance w eGFR > 60 POC Glucometer Random Glucose 127 H Calcium 7.8 L Phosphorus 2.6 D Magnesium 2.1 Total Bilirubin 0.3 D AST 52 H D ALT 32 Alkaline Phosphatase 75 Total Protein 5.8 L Albumin 2.6 L ASSESSMENT AND PLAN: Lumbar Spinal Stenosis s/p L1-S1 Laminectomies/tumor resection/L1-S1 PISF HTN Obstructive Sleep Apnea Syndrome - pain control - incentive spirometry - PO as tolerated - monitor drain output - mechanical DVT prophylaxis - bowel regimen - CPAP at night - disposition per surgery Dr Wolfe Critical care time spent in reviewing chart, evaluating patient and formulating plan - 36 minutes.
[2017-09-27] MEDS: oxyCODONE HCL 5 MG TABLET PO PRN ×2 (15:27→20:53)
--- NOTE | 2017-09-27 17:10 | PN ---
Physical Exam: SUBJECTIVE: Patient seen and examined Overnight, pt had episode of emesis after eating clear liquids. This am, pt tolerated clear liquids for breakfast without n/v/abdominal pain. He denies chest pain, SOB, dysuria. He states that his back pain is well controlled without need for AUTOMATIC DRILLING MACHINE OPERATOR pump. He still has not had a BM. OBJECTIVE: Vital Signs Period Temp Pulse Resp BP Sys/Dougherty Pulse Ox Last 24 Hr 98 F-99.6 F 74-86 20-21 115-180/68-98 95-99 GENERAL: obese middle aged male, lying in bed, in NAD HEENT: NC, AT LUNGS: CTAB, no rales or rhonchi HEART: Regular rate and rhythm, S1, S2 without murmur, rub or gallop. ABDOMEN: soft, NT, ND, normoactive BS EXTREMITIES: 2+ pulses, warm, well-perfused, no edema. NEUROLOGICAL: Cranial nerves II through XII grossly intact. Normal speech, gait not observed. Laboratory Results - last 24 hr 09/26/17 09/27/17 09/27/17 18:09 06:00 06:00 WBC 11.3 H RBC 3.10 L Hgb 8.8 L Hct 26.2 L MCV 84.7 MCH 28.5 MCHC 33.7 RDW 14.8 Plt Count 114 L MPV 11.9 H Neutrophils % 74.9 Lymphocytes % 14.5 D Monocytes % 10.1 Eosinophils % 0.3 D Basophils % 0.2 Sodium 136 Potassium 4.0 Chloride 102 Carbon Dioxide 28 Anion Gap 6 L BUN 10 Creatinine 0.6 L Creat Clearance w eGFR > 60 POC Glucometer 154.90800 Random Glucose 127 H Calcium 7.8 L Phosphorus 2.6 D Magnesium 2.1 Total Bilirubin 0.3 D AST 52 H D ALT 32 Alkaline Phosphatase 75 Total Protein 5.8 L Albumin 2.6 L Active Medications Generic Name Dose Route Start Last Admin Trade Name Freq PRN Reason Stop Dose Admin Acetaminophen 1,000 mg 09/27/17 09:10 Tylenol - PO Q6H PRN PAIN Carvedilol 12.5 mg 09/26/17 09:45 09/27/17 10:47 Coreg - PO 12.5 mg BID MICHELL Administration Docusate Sodium 100 mg 09/25/17 10:00 09/27/17 10:47 Colace - PO 100 mg BID MICHELL Administration Gabapentin 300 mg 09/24/17 22:00 09/27/17 10:48 Neurontin - PO 300 mg BID MICHELL Administration Potassium Chloride/Dextrose/Sod Cl 20 meq in 1,000 mls @ 100 mls/hr 09/25/17 12:15 09/27/17 17:00 D5-1/2ns+20 Meq Kcl - IV 100 mls/hr ASDIR MICHELL Administration Lisinopril 20 mg 09/25/17 06:54 09/27/17 10:47 Prinivil PO 20 mg DAILY MICHELL Administration Ondansetron HCl 4 mg 09/23/17 23:02 Zofran Injection IVPUSH Q6H PRN NAUSEA AND/OR VOMITING Oxycodone HCl 10 mg 09/27/17 09:09 09/27/17 15:27 Roxicodone - PO 10 mg Q4H PRN Administration PAIN LEVEL 6-10 Oxycodone HCl 5 mg 09/27/17 09:09 Roxicodone - PO Q4H PRN PAIN LEVEL 4 - 6 Polyethylene Glycol 17 gm 09/24/17 11:45 09/27/17 10:50 Miralax (For Daily Use) - PO 17 gm DAILY MICHELL Administration Promethazine HCl 12.5 mg 09/24/17 18:16 09/25/17 21:19 Phenergan Injection - IVPUSH 12.5 mg Q4H PRN Administration NAUSEA AND/OR VOMITING Senna 2 tab 09/25/17 22:00 09/26/17 21:44 Senna - PO 2 tab HS MICHELL Administration ASSESSMENT/PLAN: 56M w/ hx of HTN and chronic back pain, now POD#4 s/p L1-S1 laminectomies, L4- L5 PLIF, L3, L4 Power-Sebastian osteotomies, resection of tumor L1-S1, and intra- operative durotomy for epidural lipomatosis, facet arthropathy, and severe spinal stenosis. Neuro #POD#4 s/p L1-S1 laminectomies, L4-L5 PLIF, L3, L4 Power-Sebastian osteotomies, resection of tumor L1-S1, and intra-operative durotomy -head of bed can be elevated as tolerated, as per neurosurgery recs. -HemoVac drain to gravity; no suction. -Pain control: per anaesthesia team, AUTOMATIC DRILLING MACHINE OPERATOR pump d/c'd. started on oral pain meds CV #HTN -continue lisinopril and coreg 12.5 -ASA to be resumed once hemostasis is achieved and cleared by surgery Pulm -incentive spirometry #ALEXANDER -CPAP HS ID afebrile, leukocytosis of 11.3 -continue to monitor Heme -Hgb of 8.8, continue to monitor -platelets of 114, continue to monitor GI -passing flatus, started on clears -continue senna, colace, and miralax -no BM yet Nephro -adequate urine output without whitfield FEN/ppx -D5-1/2NS w/ 20 KCl @ 100 -electrolytes wnl -clears -no GI ppx indicated -SCDs per neurosurgery Case discussed with attending, Dr. Wolfe. -Buddy Wolf MD PGY1 ICU Team Visit type - Emergency Visit Emergency Visit: Yes ED Registration Date: 09/22/17 Care time: The patient presented to the Emergency Department on the above date and was hospitalized for further evaluation of their emergent condition. - New Patient This patient is new to me today: No - Critical Care Critical Care patient: Yes Total Critical Care Time (in minutes): 35 Critical Care Statement: The care of this patient involved high complexity decision making to prevent further life threatening deterioration of the patient 's condition and/or to evaluate & treat vital organ system(s) failure or risk of failure.
--- NOTE | 2017-09-27 17:51 | PN ---
Physical Exam: SUBJECTIVE: Patient seen and examined in the ICU OBJECTIVE: Abdomen soft, non distended, + bowel sounds, passing gas but still without BM No nausea, no vomiting>dulcolax CA x 1 now Dilaudid STEEL ERECTING PUSHER stopped, now on PO Awaiting PT evaluation BP better controlled Vital Signs Period Temp Pulse Resp BP Sys/Dougherty Pulse Ox Last 24 Hr 98 F-99.6 F 74-86 20-21 115-180/68-98 95-99 GENERAL: The patient is awake, alert, and fully oriented, in no acute distress. HEAD: Normal with no signs of trauma. EYES: PERRL, extraocular movements intact, sclera anicteric, conjunctiva clear. No ptosis. ENT: Ears normal, nares patent, oropharynx clear without exudates, moist mucous membranes. NECK: Trachea midline, full range of motion, supple. LUNGS: Breath sounds equal anteriorly HEART: Regular rate and rhythm EXTREMITIES: no edema. NEUROLOGICAL: Normal speech, gait not observed. PSYCH: Normal mood, normal affect. SKIN: Warm, dry, normal turgor, no rashes or lesions noted Laboratory Results - last 24 hr 09/26/17 09/27/17 09/27/17 18:09 06:00 06:00 WBC 11.3 H RBC 3.10 L Hgb 8.8 L Hct 26.2 L MCV 84.7 MCH 28.5 MCHC 33.7 RDW 14.8 Plt Count 114 L MPV 11.9 H Neutrophils % 74.9 Lymphocytes % 14.5 D Monocytes % 10.1 Eosinophils % 0.3 D Basophils % 0.2 Sodium 136 Potassium 4.0 Chloride 102 Carbon Dioxide 28 Anion Gap 6 L BUN 10 Creatinine 0.6 L Creat Clearance w eGFR > 60 POC Glucometer [phone] Random Glucose 127 H Calcium 7.8 L Phosphorus 2.6 D Magnesium 2.1 Total Bilirubin 0.3 D AST 52 H D ALT 32 Alkaline Phosphatase 75 Total Protein 5.8 L Albumin 2.6 L Active Medications Generic Name Dose Route Start Last Admin Trade Name Freq PRN Reason Stop Dose Admin Acetaminophen 1,000 mg 09/27/17 09:10 Tylenol - PO Q6H PRN PAIN Carvedilol 12.5 mg 09/26/17 09:45 09/27/17 10:47 Coreg - PO 12.5 mg BID [facility] Administration Docusate Sodium 100 mg 09/25/17 10:00 09/27/17 10:47 Colace - PO 100 mg BID [facility] Administration Gabapentin 300 mg 09/24/17 22:00 09/27/17 10:48 Neurontin - PO 300 mg BID [facility] Administration Potassium Chloride/Dextrose/Sod Cl 20 meq in 1,000 mls @ 100 mls/hr 09/25/17 12:15 09/27/17 17:00 D5-1/2ns+20 Meq Kcl - IV 100 mls/hr ASDIR [facility] Administration Lisinopril 20 mg 09/25/17 06:54 09/27/17 10:47 Prinivil PO 20 mg DAILY [facility] Administration Ondansetron HCl 4 mg 09/23/17 23:02 Zofran Injection IVPUSH Q6H PRN NAUSEA AND/OR VOMITING Oxycodone HCl 10 mg 09/27/17 09:09 09/27/17 15:27 Roxicodone - PO 10 mg Q4H PRN Administration PAIN LEVEL 6-10 Oxycodone HCl 5 mg 09/27/17 09:09 Roxicodone - PO Q4H PRN PAIN LEVEL 4 - 6 Polyethylene Glycol 17 gm 09/24/17 11:45 09/27/17 10:50 Miralax (For Daily Use) - PO 17 gm DAILY [facility] Administration Promethazine HCl 12.5 mg 09/24/17 18:16 09/25/17 21:19 Phenergan Injection - IVPUSH 12.5 mg Q4H PRN Administration NAUSEA AND/OR VOMITING Senna 2 tab 09/25/17 22:00 09/26/17 21:44 Senna - PO 2 tab HS [facility] Administration ASSESSMENT/PLAN: Patient is a 56 year old male with a significant past medical history of hypertension, chronic back pain. He is s/p L1-S1 laminectomies, L4-L5 PLIF, L3 , L4 Power-Sebastian osteotomies, Resection of tumor L1-S1. L1-S1 PISF on 09/[address] Peters. Ortho: s/p L1-S1 laminectomies, L4-L5 PLIF, L3, L4 Power-Sebastian osteotomies Resection of tumor L1-S1. L1-S1 PISF on 09/[address] Peters. Pain management as per anesthesia Monitor in ICU as per surgery whitfield removed Bowel regimen, dulcolax now Surgery following Card: Hypertension, BP improving On Lisinopril, coreq increased on 09/26 Cardiac workup outpatient once patient is fully ambulatory Cardiology following Pulm: Outpatient sleep study once acute medical issues resolve CPAP at dairy specialist respiratory status Incentive spirometer Heme: Monitor hmg/hct, low stable Thrombocytopenia improving, continue to trend F.E.N. Fluids: On clears, ivf as per surgery Electrolytes: monitor Nutrition: clears, advance as tolerated Prohy: SCDS GI ppx deferred Visit type - Emergency Visit Emergency Visit: Yes ED Registration Date: 09/22/17 Care time: The patient presented to the Emergency Department on the above date and was hospitalized for further evaluation of their emergent condition. - New Patient This patient is new to me today: No - Critical Care Critical Care patient: Yes Total Critical Care Time (in minutes): 30 Critical Care Statement: The care of this patient involved high complexity decision making to prevent further life threatening deterioration of the patient 's condition and/or to evaluate & treat vital organ system(s) failure or risk of failure.
[2017-09-27] MEDS ORDERED: BISACODYL 10 MG SUPP.RECT RC ONE (18:00)
--- NOTE | 2017-09-27 19:37 | PN ---
Progress Note, Physician History of Present Illness: Pain controlled, denies chest pain or dyspnea, BP with improved control. - Current Medication List Current Medications: Active Medications Acetaminophen (Tylenol -) 1,000 mg PO Q6H PRN PRN Reason: PAIN Carvedilol (Coreg -) 12.5 mg PO BID [facility] Last Admin: 09/27/17 10:47 Dose: 12.5 mg Docusate Sodium (Colace -) 100 mg PO BID [facility] Last Admin: 09/27/17 10:47 Dose: 100 mg Gabapentin (Neurontin -) 300 mg PO BID [facility] Last Admin: 09/27/17 10:48 Dose: 300 mg Potassium Chloride/Dextrose/Sod Cl (D5-1/2ns+20 Meq Kcl -) 20 meq in 1,000 mls @ 100 mls/hr IV ASDIR [facility] Last Admin: 09/27/17 17:00 Dose: 100 mls/hr Lisinopril (Prinivil) 20 mg PO DAILY [facility] Last Admin: 09/27/17 10:47 Dose: 20 mg Ondansetron HCl (Zofran Injection) 4 mg IVPUSH Q6H PRN PRN Reason: NAUSEA AND/OR VOMITING Oxycodone HCl (Roxicodone -) 10 mg PO Q4H PRN PRN Reason: PAIN LEVEL 6-10 Last Admin: 09/27/17 15:27 Dose: 10 mg Oxycodone HCl (Roxicodone -) 5 mg PO Q4H PRN PRN Reason: PAIN LEVEL 4 - 6 Polyethylene Glycol (Miralax (For Daily Use) -) 17 gm PO DAILY [facility] Last Admin: 09/27/17 10:50 Dose: 17 gm Promethazine HCl (Phenergan Injection -) 12.5 mg IVPUSH Q4H PRN PRN Reason: NAUSEA AND/OR VOMITING Last Admin: 09/25/17 21:19 Dose: 12.5 mg Senna (Senna -) 2 tab PO HS [facility] Last Admin: 09/26/17 21:44 Dose: 2 tab - Objective Vital Signs: Vital Signs Temperature 99.6 F 09/27/17 14:00 Pulse Rate 76 09/27/17 14:00 Respiratory Rate 20 09/27/17 14:00 Blood Pressure 143/77 09/27/17 14:00 O2 Sat by Pulse Oximetry (%) 99 09/27/17 09:00 Constitutional: Yes: No Distress, Calm Neck: Yes: Supple Cardiovascular: Yes: Regular Rate and Rhythm Respiratory: Yes: Regular, CTA Bilaterally Gastrointestinal: Yes: Normal Bowel Sounds, Soft Edema: No Labs: CBC, BMP 09/27/17 06:00 09/27/17 06:00 - ....Imaging EKG: Report Reviewed (Tele: SR) Problem List - Problems (1) Obstructive sleep apnea Code(s): G47.33 - OBSTRUCTIVE SLEEP APNEA (ADULT) (PEDIATRIC) (2) HTN (hypertension) Code(s): I10 - ESSENTIAL (PRIMARY) HYPERTENSION Qualifiers: Hypertension type: essential hypertension Qualified Code(s): I10 - Essential (primary) hypertension (3) S/P lumbar laminectomy Code(s): Z98.890 - OTHER SPECIFIED POSTPROCEDURAL STATES (4) Anemia Code(s): D64.9 - ANEMIA, UNSPECIFIED Qualifiers: Anemia type: unspecified type Qualified Code(s): D64.9 - Anemia, unspecified Assessment/Plan 1. Lumbar spinal stenosis with neurogenic claudication, POD#4 post Epidural lipomatosis post L1-S1 laminectomies, L4-L5 PLIF (posterior lumbar interbody fusion), L3, L4 Power-Sebastian osteotomies, Resection of tumor L1-S1, L1-S1 PISF and Complex wound closure 2. LV systolic/diastolic dysfunction with class 0 NYHA classification LV failure , compensated/euvolemic 3. CAD angina pectoris to be excluded as culprit for the above noted LV dysfunction 4. HTN 5. Peripheral edema most likely related to chronic venous insufficiency 6. Anemia, Thrombocytopenia 7. Obstructive Sleep Apnea Syndrome PLAN: 1. Pain management, bowel regimen and post operative care 2. Continue Lisinopril 20 qd 3. Continue Coreg 12.5 bid 4. Add ASA once hemostasis is achieved and cleared by surgery 5. As outlined additional cardiovascular evaluation is recommended including myocardial perfusion imaging study to be performed as outpatient once patient is fully ambulatory 6. Mechanical DVT prophylaxis, cpap nightly
[2017-09-27] MEDS: ACETAMINOPHEN 500 MG TABLET (FP) PO PRN (20:54)
[2017-09-27] MEDS ORDERED: PT OWN MED DRAWER 7, Y5N ONE (21:07)
[2017-09-27] MEDS: SENNOSIDES 8.6MG TABLET (FP) PO SCH (22:23)
[2017-09-28 06:54] LABS: BASO % 0.4 % (0-2.0); EOS % 0.6 % (0-4.5); HEMATOCRIT 25.8 % (35.4-49); HEMOGLOBIN 8.7 GM/dL (11.7-16.9); LYMPH % 18.1 % (8-40); MCH 28.7 pg (25.7-33.7); MCHC 33.8 g/dl (32.0-35.9); MEAN CELL VOLUME 84.8 fl (80-96); MEAN PLT VOLUME 11.3 fl (7.5-11.1); MONO % 12.5 % (3.8-10.2); NEUT % 68.4 % (42.8-82.8); PLATELET COUNT 135 K/MM3 (134-434); RBC 3.04 M/mm3 (4.00-5.60); RDW 14.6 % (11.9-15.9); WHITE BLOOD COUNT 10.5 K/mm3 (4.0-10.0)
[2017-09-28 07:28] LABS: ALBUMIN 2.6 g/dl (3.4-5.0); BLOOD UREA NITROGEN 8 mg/dL (7-18); CALCIUM 8.3 mg/dL (8.5-10.1); CHLORIDE 104 mmol/L (98-107); POTASSIUM 4.2 mmol/L (3.5-5.1); SODIUM 140 mmol/L (136-145)
[2017-09-28 07:34] LABS: ALK PHOS 80 U/L (45-117); ANION GAP 6 (8-16); BILIRUBIN,TOTAL 0.3 mg/dL (0.2-1.0); CO2 30 mmol/L (21-32); CREATININE 0.7 mg/dL (0.7-1.3); GLUCOSE,RANDOM 131 mg/dL (74-106); MAGNESIUM 2.4 mg/dL (1.8-2.4); PHOSPHOROUS 3.4 mg/dL (2.5-4.9); SGOT/AST 49 U/L (15-37); SGPT/ALT 47 U/L (12-78); TOT PROT 5.8 g/dl (6.4-8.2)
--- NOTE | 2017-09-28 10:22 | PN ---
Progress Note (short form) - Note Progress Note: Patient seen and examined in the ICU. Pain seems controlled at present, 08/24. No fevers or chills. No nausea or vomiting today. Reports hallucinating last night and becoming confused after pain meds were given. OBJECTIVE: Intake & Output 09/25/17 09/26/17 09/27/17 09/28/17 23:59 23:59 23:59 23:59 Intake Total 1241 2900 1900 1200 Output Total 2280 1795 5700 1970 Balance -1039 1105 -3800 -770 Last Vital Signs Temp Pulse Resp BP Pulse Ox 98.9 F 85 29 H 152/84 99 09/28/17 10:00 09/28/17 10:00 09/28/17 10:00 09/28/17 10:00 09/27/17 21:00 Active Medications Acetaminophen (Tylenol -) 1,000 mg PO Q6H PRN PRN Reason: PAIN Last Admin: 09/27/17 20:54 Dose: 1,000 mg Carvedilol (Coreg -) 12.5 mg PO BID [facility] Last Admin: 09/27/17 22:23 Dose: 12.5 mg Docusate Sodium (Colace -) 100 mg PO BID [facility] Last Admin: 09/27/17 22:23 Dose: 100 mg Gabapentin (Neurontin -) 300 mg PO BID [facility] Last Admin: 09/27/17 22:23 Dose: 300 mg Potassium Chloride/Dextrose/Sod Cl (D5-1/2ns+20 Meq Kcl -) 20 meq in 1,000 mls @ 100 mls/hr IV ASDIR [facility] Last Admin: 09/27/17 17:00 Dose: 100 mls/hr Lisinopril (Prinivil) 20 mg PO DAILY [facility] Last Admin: 09/27/17 10:47 Dose: 20 mg Ondansetron HCl (Zofran Injection) 4 mg IVPUSH Q6H PRN PRN Reason: NAUSEA AND/OR VOMITING Oxycodone HCl (Roxicodone -) 10 mg PO Q4H PRN PRN Reason: PAIN LEVEL 6-10 Last Admin: 09/27/17 20:53 Dose: 10 mg Oxycodone HCl (Roxicodone -) 5 mg PO Q4H PRN PRN Reason: PAIN LEVEL 4 - 6 Polyethylene Glycol (Miralax (For Daily Use) -) 17 gm PO DAILY [facility] Last Admin: 09/27/17 10:50 Dose: 17 gm Promethazine HCl (Phenergan Injection -) 12.5 mg IVPUSH Q4H PRN PRN Reason: NAUSEA AND/OR VOMITING Last Admin: 09/25/17 21:19 Dose: 12.5 mg Senna (Senna -) 2 tab PO HS [facility] Last Admin: 09/27/17 22:23 Dose: 2 tab Gen: NAD at rest Heart: RRR Lung: decreased breath sounds at the bases Abd: soft, nontender Ext: no edema Laboratory Results - last 24 hr 09/28/17 09/28/17 05:40 05:40 WBC 10.5 H RBC 3.04 L Hgb 8.7 L Hct 25.8 L MCV 84.8 MCH 28.7 MCHC 33.8 RDW 14.6 Plt Count 135 MPV 11.3 H Neutrophils % 68.4 Lymphocytes % 18.1 D Monocytes % 12.5 H Eosinophils % 0.6 D Basophils % 0.4 Sodium 140 Potassium 4.2 Chloride 104 Carbon Dioxide 30 Anion Gap 6 L BUN 8 Creatinine 0.7 Creat Clearance w eGFR > 60 Random Glucose 131 H Calcium 8.3 L Phosphorus 3.4 D Magnesium 2.4 Total Bilirubin 0.3 AST 49 H ALT 47 D Alkaline Phosphatase 80 Total Protein 5.8 L Albumin 2.6 L ASSESSMENT AND PLAN: Lumbar Spinal Stenosis s/p L1-S1 Laminectomies/tumor resection/L1-S1 PISF HTN Obstructive Sleep Apnea Syndrome - pain control, try to minimize opiates - incentive spirometry - PO as tolerated - monitor drain output - mechanical DVT prophylaxis - bowel regimen - CPAP at night - disposition per surgery Dr Wolfe Critical care time spent in reviewing chart, evaluating patient and formulating plan - 36 minutes.
[2017-09-28] MEDS: CARVEDILOL 6.25 MG TABLET (FP) PO SCH ×2 (11:13→22:10)
[2017-09-28] MEDS: ACETAMINOPHEN 500 MG TABLET (FP) PO PRN ×2 (11:13→17:29)
[2017-09-28] MEDS: LISINOPRIL 20 MG TABLET (FP) PO SCH (11:15)
[2017-09-28] MEDS: GABAPENTIN 300 MG CAPSULE (FP) PO SCH ×2 (11:15→22:11)
[2017-09-28] MEDS: DOCUSATE SODIUM 100 MG CAPSULE (FP) PO SCH ×2 (11:15→22:10)
[2017-09-28] MEDS: POLYETHYLENE GLYCOL 3350 119 GM BTL PO SCH (11:15)
[2017-09-28] MEDS ORDERED: BISACODYL 10 MG SUPP.RECT PR ONE (16:27)
--- NOTE | 2017-09-28 16:32 | PN ---
Progress Note (short form) - Note Progress Note: Subjective: The patient was seen and examined at the bedside, he reports "according to me, I had a bowel movement last night". According to chart, no BM noted. Patient reports hallucinating last night after receiving pain medications Current Medications Generic Name Dose Route Start Last Admin Trade Name Freq PRN Reason Stop Dose Admin Acetaminophen 1,000 mg 09/27/17 09:10 09/28/17 11:13 Tylenol - PO 1,000 mg Q6H PRN Administration PAIN Carvedilol 12.5 mg 09/26/17 09:45 09/28/17 11:13 Coreg - PO 12.5 mg BID [facility] Administration Docusate Sodium 100 mg 09/25/17 10:00 09/28/17 11:15 Colace - PO 100 mg BID [facility] Administration Gabapentin 300 mg 09/24/17 22:00 09/28/17 11:15 Neurontin - PO 300 mg BID [facility] Administration Potassium Chloride/Dextrose/Sod Cl 20 meq in 1,000 mls @ 100 mls/hr 09/25/17 12:15 09/27/17 17:00 D5-1/2ns+20 Meq Kcl - IV 100 mls/hr ASDIR [facility] Administration Lisinopril 20 mg 09/25/17 06:54 09/28/17 11:15 Prinivil PO 20 mg DAILY [facility] Administration Ondansetron HCl 4 mg 09/23/17 23:02 Zofran Injection IVPUSH Q6H PRN NAUSEA AND/OR VOMITING Oxycodone HCl 10 mg 09/27/17 09:09 09/27/17 20:53 Roxicodone - PO 10 mg Q4H PRN Administration PAIN LEVEL 6-10 Oxycodone HCl 5 mg 09/27/17 09:09 Roxicodone - PO Q4H PRN PAIN LEVEL 4 - 6 Polyethylene Glycol 17 gm 09/24/17 11:45 09/28/17 11:15 Miralax (For Daily Use) - PO 17 gm DAILY [facility] Administration Promethazine HCl 12.5 mg 09/24/17 18:16 09/25/17 21:19 Phenergan Injection - IVPUSH 12.5 mg Q4H PRN Administration NAUSEA AND/OR VOMITING Senna 2 tab 09/25/17 22:00 09/27/17 22:23 Senna - PO 2 tab HS [facility] Administration Objective: Vital Signs Period Temp Pulse Resp BP Sys/Dougherty Pulse Ox Last 24 Hr 98.3 F-99.0 F 67-85 16-29 128-154/61-97 99-99 Physical Exam: General: NAD, A&Ox3 Lungs: CTA bilaterally Heart: RRR, S1S2 Abd: Soft, non-tender. Normoactive bowel sounds Ext: B/l lower extremity 1+ pitting edema Neuro: CN 2-12 intact CBCD WBC 10.5 K/mm3 (4.0-10.0) H 09/28/17 05:40 RBC 3.04 M/mm3 (4.00-5.60) L 09/28/17 05:40 Hgb 8.7 GM/dL (11.7-16.9) L 09/28/17 05:40 Hct 25.8 % (35.4-49) L 09/28/17 05:40 MCV 84.8 fl (80-96) 09/28/17 05:40 MCHC 33.8 g/dl (32.0-35.9) 09/28/17 05:40 RDW 14.6 % (11.9-15.9) 09/28/17 05:40 Plt Count 135 K/MM3 (134-434) 09/28/17 05:40 MPV 11.3 fl (7.5-11.1) H 09/28/17 05:40 CMP Sodium 140 mmol/L (136-145) 09/28/17 05:40 Potassium 4.2 mmol/L (3.5-5.1) 09/28/17 05:40 Chloride 104 mmol/L (98-107) 09/28/17 05:40 Carbon Dioxide 30 mmol/L (21-32) 09/28/17 05:40 Anion Gap 6 (8-16) L 09/28/17 05:40 BUN 8 mg/dL (7-18) 09/28/17 05:40 Creatinine 0.7 mg/dL (0.7-1.3) 09/28/17 05:40 Creat Clearance w eGFR > 60 (>60) 09/28/17 05:40 Random Glucose 131 mg/dL (74-106) H 09/28/17 05:40 Calcium 8.3 mg/dL (8.5-10.1) L 09/28/17 05:40 Total Bilirubin 0.3 mg/dL (0.2-1.0) 09/28/17 05:40 AST 49 U/L (15-37) H 09/28/17 05:40 ALT 47 U/L (12-78) D 09/28/17 05:40 Alkaline Phosphatase 80 U/L (45-117) 09/28/17 05:40 Total Protein 5.8 g/dl (6.4-8.2) L 09/28/17 05:40 Albumin 2.6 g/dl (3.4-5.0) L 09/28/17 05:40 CARDIAC ENZYMES Creatine Kinase 203 IU/L (39-308) 09/23/17 07:39 Troponin I < 0.02 ng/ml (0.00-0.05) 09/23/17 07:39 Assessment: This is a 56 year old male with PMHx of HTN, chronic back pain who presented to an acute exacerbation of his back pain. Plan: 1) Acute on chronic exacerbation of back pain - S/p L1-S1 laminectomies, L4-L5 PLIF, L3, L4 Power-Sebastian osteotomies, Resection of tumor L1-S1. L1-S1 PISF on 09/23 - Pain management: minimize opiates (caused hallucinations overnight) - Incentive spirometer - PT - Monitor drain output - Appreciate surgery consult 2) HTN - Continue Lisinopril - Continue Coreg 3) Obstructive sleep apnea - Cpap at night - Outpatient sleep study 4) B/l lower extremity pitting edema - Patient reports non-compliance with Lasix, he reports "normal" ECHO 12/2016 - ECHO with low normal LV EF between 50-55%, with trace TR - BNP wnl, trop negative -Add ASA once cleared by surgery - Appreciate cardiology consult 5) Thrombocytopenia - Resolved 6) F/E/N: - IV fluids - Regular diet 7) Prophylaxis: - SCDs ONLY - No chemical DVT prophylaxis per surgery - Bowel regimen 8) Dispo: - Requires continued inpatient care CODE STATUS: FULL CODE Visit type - Emergency Visit Emergency Visit: Yes ED Registration Date: 09/22/17 Care time: The patient presented to the Emergency Department on the above date and was hospitalized for further evaluation of their emergent condition. - New Patient This patient is new to me today: No - Critical Care Critical Care patient: No
[2017-09-28] MEDS: D5-1/2NS+20 MEQ KCL - 20 MEQ/1,000 ML INFUS.BAG IV SCH (17:28)
--- NOTE | 2017-09-28 18:28 | PN ---
Progress Note (short form) - Note Progress Note: ICU Patient C/O incisional pain No leg pain or dysaesthesia. No headache Passing gas No stool. Vitals all stable Comfortable and fully orientated. O/E Apyrexial CVS Stable Resp Clear ABD Soft Wound dry dressing changed Drains pulled. Neuro All motor and sensory intact to LE ASSESS Doing well PLAN PT Mobilize Pain mx D/C planning ? home on Saturday
[2017-09-28] MEDS ORDERED: PT OWN MED DRAWER 7, Y5N ONE (21:43)
[2017-09-28] MEDS ORDERED: BISACODYL 10 MG SUPP.RECT RC ONE (21:45)
[2017-09-28] MEDS: SENNOSIDES 8.6MG TABLET (FP) PO SCH (22:11)
[2017-09-29] MEDS ORDERED: morphine SULFATE 4 MG/ML VIAL ONE ×3 (02:53→23:21)
[2017-09-29] MEDS ORDERED: morphine SULFATE 4 MG/ML VIAL IVPUSH ONE ×2 (05:24→14:30)
[2017-09-29 06:36] LABS: HEMATOCRIT 26.1 % (35.4-49); HEMOGLOBIN 8.8 GM/dL (11.7-16.9); MCH 28.6 pg (25.7-33.7); MCHC 33.6 g/dl (32.0-35.9); MEAN CELL VOLUME 85.1 fl (80-96); MEAN PLT VOLUME 11.2 fl (7.5-11.1); PLATELET COUNT 158 K/MM3 (134-434); RBC 3.06 M/mm3 (4.00-5.60); RDW 14.6 % (11.9-15.9); WHITE BLOOD COUNT 10.7 K/mm3 (4.0-10.0)
--- NOTE | 2017-09-29 09:25 | PN ---
Progress Note (short form) - Note Progress Note: Patient seen and examined in the ICU. Pain controlled at present. Some muscle cramps. No fevers or chills. No nausea or vomiting today. OBJECTIVE: Intake & Output 09/26/17 09/27/17 09/28/17 09/29/17 23:59 23:59 23:59 23:59 Intake Total 2900 1900 2900 300 Output Total 1795 5700 2470 650 Balance 1105 -3800 430 -350 Last Vital Signs Temp Pulse Resp BP Pulse Ox 98.8 F 78 22 130/73 99 09/29/17 06:00 09/29/17 08:00 09/29/17 09:00 09/29/17 08:00 09/29/17 09:00 Active Medications Acetaminophen (Tylenol -) 1,000 mg PO Q6H PRN PRN Reason: PAIN Last Admin: 09/28/17 17:29 Dose: 1,000 mg Carvedilol (Coreg -) 12.5 mg PO BID [facility] [place] Last Admin: 09/28/17 22:10 Dose: 12.5 mg Docusate Sodium (Colace -) 100 mg PO BID [facility] Last Admin: 09/28/17 22:10 Dose: 100 mg Gabapentin (Neurontin -) 300 mg PO BID [facility] [place] Last Admin: 09/28/17 22:11 Dose: 300 mg Potassium Chloride/Dextrose/Sod Cl (D5-1/2ns+20 Meq Kcl -) 20 meq in 1,000 mls @ 100 mls/hr IV ASDIR [facility] [place] Last Admin: 09/28/17 17:28 Dose: 100 mls/hr Lisinopril (Prinivil) 20 mg PO DAILY [facility] [place] Last Admin: 09/28/17 11:15 Dose: 20 mg Ondansetron HCl (Zofran Injection) 4 mg IVPUSH Q6H PRN PRN Reason: NAUSEA AND/OR VOMITING Oxycodone HCl (Roxicodone -) 10 mg PO Q4H PRN PRN Reason: PAIN LEVEL 6-10 Last Admin: 09/27/17 20:53 Dose: 10 mg Oxycodone HCl (Roxicodone -) 5 mg PO Q4H PRN PRN Reason: PAIN LEVEL 4 - 6 Polyethylene Glycol (Miralax (For Daily Use) -) 17 gm PO DAILY [facility] [place] Last Admin: 09/28/17 11:15 Dose: 17 gm Promethazine HCl (Phenergan Injection -) 12.5 mg IVPUSH Q4H PRN PRN Reason: NAUSEA AND/OR VOMITING Last Admin: 09/25/17 21:19 Dose: 12.5 mg Senna (Senna -) 2 tab PO HS [facility] [place] Last Admin: 09/28/17 22:11 Dose: 2 tab Gen: NAD at rest Heart: RRR Lung: decreased breath sounds at the bases Abd: soft, nontender Ext: no edema Laboratory Results - last 24 hr 09/29/17 05:50 WBC 10.7 H RBC 3.06 L Hgb 8.8 L Hct 26.1 L MCV 85.1 MCH 28.6 MCHC 33.6 RDW 14.6 Plt Count 158 MPV 11.2 H ASSESSMENT AND PLAN: Lumbar Spinal Stenosis s/p L1-S1 Laminectomies/tumor resection/L1-S1 PISF HTN Obstructive Sleep Apnea Syndrome - pain control, try to minimize opiates / trial of Flexeril - incentive spirometry - PO as tolerated - monitor drain output - mechanical DVT prophylaxis - bowel regimen - CPAP at night - disposition per surgery Dr Wolfe
[2017-09-29] MEDS ORDERED: CYCLOBENZAPRINE HCL 5 MG TABLET PO PRN (09:26)
[2017-09-29] MEDS: POLYETHYLENE GLYCOL 3350 119 GM BTL PO SCH (09:55)
[2017-09-29] MEDS: DOCUSATE SODIUM 100 MG CAPSULE (FP) PO SCH ×2 (09:56→21:35)
[2017-09-29] MEDS: GABAPENTIN 300 MG CAPSULE (FP) PO SCH ×2 (09:56→21:34)
[2017-09-29] MEDS: CARVEDILOL 6.25 MG TABLET (FP) PO SCH ×2 (09:56→21:34)
[2017-09-29] MEDS: LISINOPRIL 20 MG TABLET (FP) PO SCH (09:57)
[2017-09-29] MEDS: CYCLOBENZAPRINE HCL 10 MG TABLET (FP) PO PRN ×3 (11:15→22:31)
--- NOTE | 2017-09-29 13:13 | PN ---
Progress Note, Physician History of Present Illness: Pain controlled, denies chest pain or dyspnea, BP with improved control, drain removed, trying for BM. - Current Medication List Current Medications: Active Medications Acetaminophen (Tylenol -) 1,000 mg PO Q6H PRN PRN Reason: PAIN Last Admin: 09/28/17 17:29 Dose: 1,000 mg Carvedilol (Coreg -) 12.5 mg PO BID [facility] Last Admin: 09/29/17 09:56 Dose: 12.5 mg Cyclobenzaprine HCl (Flexeril -) 5 mg PO TID PRN PRN Reason: BACK PAIN Last Admin: 09/29/17 11:15 Dose: 5 mg Docusate Sodium (Colace -) 100 mg PO BID [facility] Last Admin: 09/29/17 09:56 Dose: 100 mg Gabapentin (Neurontin -) 300 mg PO BID [facility] Last Admin: 09/29/17 09:56 Dose: 300 mg Lisinopril (Prinivil) 20 mg PO DAILY [facility] Last Admin: 09/29/17 09:57 Dose: 20 mg Ondansetron HCl (Zofran Injection) 4 mg IVPUSH Q6H PRN PRN Reason: NAUSEA AND/OR VOMITING Oxycodone HCl (Roxicodone -) 10 mg PO Q4H PRN PRN Reason: PAIN LEVEL 6-10 Last Admin: 09/27/17 20:53 Dose: 10 mg Oxycodone HCl (Roxicodone -) 5 mg PO Q4H PRN PRN Reason: PAIN LEVEL 4 - 6 Polyethylene Glycol (Miralax (For Daily Use) -) 17 gm PO DAILY [facility] Last Admin: 09/29/17 09:55 Dose: 17 gm Promethazine HCl (Phenergan Injection -) 12.5 mg IVPUSH Q4H PRN PRN Reason: NAUSEA AND/OR VOMITING Last Admin: 09/25/17 21:19 Dose: 12.5 mg Senna (Senna -) 2 tab PO HS [facility] Last Admin: 09/28/17 22:11 Dose: 2 tab - Objective Vital Signs: Vital Signs Temperature 98.5 F 09/29/17 10:00 Pulse Rate 73 09/29/17 12:00 Respiratory Rate 24 09/29/17 12:00 Blood Pressure 125/73 09/29/17 12:00 O2 Sat by Pulse Oximetry (%) 99 09/29/17 09:00 Constitutional: Yes: No Distress, Calm Neck: Yes: Supple Cardiovascular: Yes: Regular Rate and Rhythm Respiratory: Yes: Regular, Diminished Gastrointestinal: Yes: Normal Bowel Sounds, Soft Edema: No Labs: CBC, BMP 09/29/17 05:50 09/28/17 05:40 - ....Imaging Chest X-ray: Report Reviewed (NAD) Problem List - Problems (1) Obstructive sleep apnea Code(s): G47.33 - OBSTRUCTIVE SLEEP APNEA (ADULT) (PEDIATRIC) (2) HTN (hypertension) Code(s): I10 - ESSENTIAL (PRIMARY) HYPERTENSION Qualifiers: Hypertension type: essential hypertension Qualified Code(s): I10 - Essential (primary) hypertension (3) S/P lumbar laminectomy Code(s): Z98.890 - OTHER SPECIFIED POSTPROCEDURAL STATES (4) Anemia Code(s): D64.9 - ANEMIA, UNSPECIFIED Qualifiers: Anemia type: unspecified type Qualified Code(s): D64.9 - Anemia, unspecified Assessment/Plan 1. Lumbar spinal stenosis with neurogenic claudication, POD#6 post Epidural lipomatosis post L1-S1 laminectomies, L4-L5 PLIF (posterior lumbar interbody fusion), L3, L4 Power-Sebastian osteotomies, Resection of tumor L1-S1, L1-S1 PISF and Complex wound closure 2. LV systolic/diastolic dysfunction with class 0 NYHA classification LV failure , compensated/euvolemic 3. CAD angina pectoris to be excluded as culprit for the above noted LV dysfunction 4. HTN 5. Peripheral edema most likely related to chronic venous insufficiency 6. Anemia, Thrombocytopenia 7. Obstructive Sleep Apnea Syndrome PLAN: 1. Pain management, bowel regimen and post operative care 2. Continue Lisinopril 20 qd 3. Continue Coreg 12.5 bid 4. Add ASA once hemostasis is achieved and cleared by surgery 5. As outlined additional cardiovascular evaluation is recommended including myocardial perfusion imaging study to be performed as outpatient once patient is fully ambulatory 6. Mechanical DVT prophylaxis, cpap nightly
[2017-09-29] MEDS ORDERED: BISACODYL 10 MG SUPP.RECT PR ONE (14:01)
--- NOTE | 2017-09-29 14:03 | PN ---
Progress Note (short form) - Note Progress Note: Subjective: The patient was seen and examined at the bedside, he denies any complaints at this time Still with no BM Current Medications Generic Name Dose Route Start Last Admin Trade Name Freq PRN Reason Stop Dose Admin Acetaminophen 1,000 mg 09/27/17 09:10 09/28/17 17:29 Tylenol - PO 1,000 mg Q6H PRN Administration PAIN Carvedilol 12.5 mg 09/26/17 09:45 09/29/17 09:56 Coreg - PO 12.5 mg BID MICHELL Administration Cyclobenzaprine HCl 5 mg 09/29/17 10:04 09/29/17 11:15 Flexeril - PO 5 mg TID PRN Administration BACK PAIN Docusate Sodium 100 mg 09/25/17 10:00 09/29/17 09:56 Colace - PO 100 mg BID MICHELL Administration Gabapentin 300 mg 09/24/17 22:00 09/29/17 09:56 Neurontin - PO 300 mg BID MICHELL Administration Lisinopril 20 mg 09/25/17 06:54 09/29/17 09:57 Prinivil PO 20 mg DAILY MICHELL Administration Ondansetron HCl 4 mg 09/23/17 23:02 Zofran Injection IVPUSH Q6H PRN NAUSEA AND/OR VOMITING Oxycodone HCl 10 mg 09/27/17 09:09 09/27/17 20:53 Roxicodone - PO 10 mg Q4H PRN Administration PAIN LEVEL 6-10 Oxycodone HCl 5 mg 09/27/17 09:09 Roxicodone - PO Q4H PRN PAIN LEVEL 4 - 6 Polyethylene Glycol 17 gm 09/24/17 11:45 09/29/17 09:55 Miralax (For Daily Use) - PO 17 gm DAILY MICHELL Administration Promethazine HCl 12.5 mg 09/24/17 18:16 09/25/17 21:19 Phenergan Injection - IVPUSH 12.5 mg Q4H PRN Administration NAUSEA AND/OR VOMITING Senna 2 tab 09/25/17 22:00 09/28/17 22:11 Senna - PO 2 tab HS MICHELL Administration Objective: Vital Signs Period Temp Pulse Resp BP Sys/Dougherty Pulse Ox Last 24 Hr 98.2 F-99.3 F 69-78 19-28 120-142/59-83 99-99 Physical Exam: General: NAD, A&Ox3 Lungs: CTA bilaterally Heart: RRR, S1S2 Abd: Soft, non-tender. Normoactive bowel sounds Neuro: CN 2-12 intact CBCD WBC 10.7 K/mm3 (4.0-10.0) H 09/29/17 05:50 RBC 3.06 M/mm3 (4.00-5.60) L 09/29/17 05:50 Hgb 8.8 GM/dL (11.7-16.9) L 09/29/17 05:50 Hct 26.1 % (35.4-49) L 09/29/17 05:50 MCV 85.1 fl (80-96) 09/29/17 05:50 MCHC 33.6 g/dl (32.0-35.9) 09/29/17 05:50 RDW 14.6 % (11.9-15.9) 09/29/17 05:50 Plt Count 158 K/MM3 (134-434) 09/29/17 05:50 MPV 11.2 fl (7.5-11.1) H 09/29/17 05:50 CMP Sodium 140 mmol/L (136-145) 09/28/17 05:40 Potassium 4.2 mmol/L (3.5-5.1) 09/28/17 05:40 Chloride 104 mmol/L (98-107) 09/28/17 05:40 Carbon Dioxide 30 mmol/L (21-32) 09/28/17 05:40 Anion Gap 6 (8-16) L 09/28/17 05:40 BUN 8 mg/dL (7-18) 09/28/17 05:40 Creatinine 0.7 mg/dL (0.7-1.3) 09/28/17 05:40 Creat Clearance w eGFR > 60 (>60) 09/28/17 05:40 Random Glucose 131 mg/dL (74-106) H 09/28/17 05:40 Calcium 8.3 mg/dL (8.5-10.1) L 09/28/17 05:40 Total Bilirubin 0.3 mg/dL (0.2-1.0) 09/28/17 05:40 AST 49 U/L (15-37) H 09/28/17 05:40 ALT 47 U/L (12-78) D 09/28/17 05:40 Alkaline Phosphatase 80 U/L (45-117) 09/28/17 05:40 Total Protein 5.8 g/dl (6.4-8.2) L 09/28/17 05:40 Albumin 2.6 g/dl (3.4-5.0) L 09/28/17 05:40 CARDIAC ENZYMES Creatine Kinase 203 IU/L (39-308) 09/23/17 07:39 Troponin I < 0.02 ng/ml (0.00-0.05) 09/23/17 07:39 Assessment: This is a 56 year old male with PMHx of HTN, chronic back pain who presented to an acute exacerbation of his back pain. Plan: 1) Acute on chronic exacerbation of back pain - S/p L1-S1 laminectomies, L4-L5 PLIF, L3, L4 Power-Sebastian osteotomies, Resection of tumor L1-S1. L1-S1 PISF on 09/23 - Pain management - Incentive spirometer - PT - Monitor drain output - Appreciate surgery consult 2) HTN - Continue Lisinopril - Continue Coreg 3) Obstructive sleep apnea - Cpap at night - Outpatient sleep study 4) B/l lower extremity pitting edema - Patient reports non-compliance with Lasix, he reports "normal" ECHO 12/2016 - ECHO with low normal LV EF between 50-55%, with trace TR - BNP wnl, trop negative -Add ASA once cleared by surgery - Appreciate cardiology consult 5) Thrombocytopenia - Resolved 6) F/E/N: - IV fluids - Regular diet 7) Prophylaxis: - SCDs ONLY - No chemical DVT prophylaxis per surgery - Bowel regimen 8) Dispo: - Requires continued inpatient care CODE STATUS: FULL CODE Visit type - Emergency Visit Emergency Visit: Yes ED Registration Date: 09/22/17 Care time: The patient presented to the Emergency Department on the above date and was hospitalized for further evaluation of their emergent condition. - New Patient This patient is new to me today: No - Critical Care Critical Care patient: No
[2017-09-29] MEDS: SENNOSIDES 8.6MG TABLET (FP) PO SCH (21:34)
[2017-09-30] MEDS: oxyCODONE HCL 5 MG TABLET PO PRN ×3 (03:17→17:13)
[2017-09-30] MEDS ORDERED: morphine SULFATE 4 MG/ML VIAL IVPUSH ONE (04:57)
[2017-09-30 08:56] LABS: BASO % 0.4 % (0-2.0); EOS % 0.9 % (0-4.5); HEMATOCRIT 26.7 % (35.4-49); HEMOGLOBIN 8.7 GM/dL (11.7-16.9); LYMPH % 21.9 % (8-40); MCH 27.6 pg (25.7-33.7); MCHC 32.7 g/dl (32.0-35.9); MEAN CELL VOLUME 84.4 fl (80-96); MEAN PLT VOLUME 10.5 fl (7.5-11.1); MONO % 11.9 % (3.8-10.2); NEUT % 64.9 % (42.8-82.8); PLATELET COUNT 185 K/MM3 (134-434); RBC 3.17 M/mm3 (4.00-5.60); RDW 14.7 % (11.9-15.9); WHITE BLOOD COUNT 12.6 K/mm3 (4.0-10.0)
[2017-09-30] MEDS ORDERED: morphine CARPU-JECT 4 MG/1 ML DISP.SYRIN IVPUSH PRN (09:00)
[2017-09-30 09:41] LABS: CHLORIDE 102 mmol/L (98-107); POTASSIUM 4.4 mmol/L (3.5-5.1); SODIUM 139 mmol/L (136-145)
[2017-09-30] MEDS: DOCUSATE SODIUM 100 MG CAPSULE (FP) PO SCH ×2 (09:50→21:51)
[2017-09-30] MEDS: CARVEDILOL 6.25 MG TABLET (FP) PO SCH ×2 (09:51→21:51)
[2017-09-30] MEDS: GABAPENTIN 300 MG CAPSULE (FP) PO SCH ×2 (09:51→21:51)
[2017-09-30] MEDS: LISINOPRIL 20 MG TABLET (FP) PO SCH (09:51)
[2017-09-30] MEDS: POLYETHYLENE GLYCOL 3350 119 GM BTL PO SCH (09:53)
[2017-09-30 10:00] LABS: ALBUMIN 2.6 g/dl (3.4-5.0); ALK PHOS 105 U/L (45-117); ANION GAP 11 (8-16); BILIRUBIN,TOTAL 0.3 mg/dL (0.2-1.0); BLOOD UREA NITROGEN 11 mg/dL (7-18); CALCIUM 8.7 mg/dL (8.5-10.1); CO2 26 mmol/L (21-32); CREATININE 0.7 mg/dL (0.7-1.3); GLUCOSE,RANDOM 104 mg/dL (74-106); SGOT/AST 66 U/L (15-37); SGPT/ALT 117 U/L (12-78); TOT PROT 6.1 g/dl (6.4-8.2)
--- NOTE | 2017-09-30 13:02 | PN ---
Physical Exam: SUBJECTIVE: Patient seen and examined No acute events overnight. Pt reports that back pain is well controlled with po meds. He denies chest pain, SOB, abdominal pain, n/v/d, and dysuria. He endorses some leg numbness which is slightly improved compared to yesterday. He reports having a BM. He ambulated a few steps with a walker. He states that he wants to be discharged to a SNF. OBJECTIVE: Vital Signs Period Temp Pulse Resp BP Sys/Dougherty Pulse Ox Last 24 Hr 98.4 F-99.0 F 68-86 18-28 110-145/61-84 93-99 GENERAL: obese middle aged male, lying in bed, in NAD HEENT: NC, AT LUNGS: CTAB, no rales or rhonchi HEART: Regular rate and rhythm, S1, S2 without murmur, rub or gallop. ABDOMEN: soft, NT, ND, normoactive BS EXTREMITIES: 2+ pulses, warm, well-perfused, no edema. NEUROLOGICAL: Cranial nerves II through XII grossly intact. Normal speech, gait not observed. Laboratory Results - last 24 hr 09/30/17 09/30/17 08:15 08:15 WBC 12.6 H RBC 3.17 L Hgb 8.7 L Hct 26.7 L MCV 84.4 MCH 27.6 MCHC 32.7 RDW 14.7 Plt Count 185 MPV 10.5 Neutrophils % 64.9 Lymphocytes % 21.9 D Monocytes % 11.9 H Eosinophils % 0.9 Basophils % 0.4 Sodium 139 Potassium 4.4 Chloride 102 Carbon Dioxide 26 Anion Gap 11 BUN 11 D Creatinine 0.7 Creat Clearance w eGFR > 60 Random Glucose 104 D Calcium 8.7 Total Bilirubin 0.3 AST 66 H D ALT 117 H D Alkaline Phosphatase 105 D Total Protein 6.1 L Albumin 2.6 L Active Medications Generic Name Dose Route Start Last Admin Trade Name Freq PRN Reason Stop Dose Admin Acetaminophen 1,000 mg 09/27/17 09:10 09/28/17 17:29 Tylenol - PO 1,000 mg Q6H PRN Administration PAIN Carvedilol 12.5 mg 09/26/17 09:45 09/30/17 09:51 Coreg - PO 12.5 mg BID MICHELL Administration Cyclobenzaprine HCl 5 mg 09/29/17 10:04 09/29/17 22:31 Flexeril - PO 5 mg TID PRN Administration BACK PAIN Docusate Sodium 100 mg 09/25/17 10:00 09/30/17 09:50 Colace - PO 100 mg BID MICHELL Administration Gabapentin 300 mg 09/24/17 22:00 09/30/17 09:51 Neurontin - PO 300 mg BID MICHELL Administration Lisinopril 20 mg 09/25/17 06:54 09/30/17 09:51 Prinivil PO 20 mg DAILY MICHELL Administration Morphine Sulfate 2 mg 09/30/17 09:00 Morphine Injection - IVPUSH Q4H PRN PAIN Ondansetron HCl 4 mg 09/23/17 23:02 Zofran Injection IVPUSH Q6H PRN NAUSEA AND/OR VOMITING Oxycodone HCl 10 mg 09/27/17 09:09 09/30/17 07:54 Roxicodone - PO 10 mg Q4H PRN Administration PAIN LEVEL 6-10 Oxycodone HCl 5 mg 09/27/17 09:09 Roxicodone - PO Q4H PRN PAIN LEVEL 4 - 6 Polyethylene Glycol 17 gm 09/24/17 11:45 09/30/17 09:53 Miralax (For Daily Use) - PO 17 gm DAILY MICHELL Administration Promethazine HCl 12.5 mg 09/24/17 18:16 09/25/17 21:19 Phenergan Injection - IVPUSH 12.5 mg Q4H PRN Administration NAUSEA AND/OR VOMITING Senna 2 tab 09/25/17 22:00 09/29/17 21:34 Senna - PO 2 tab HS MICHELL Administration ASSESSMENT/PLAN: 56M w/ hx of HTN and chronic back pain, now POD#4 s/p L1-S1 laminectomies, L4- L5 PLIF, L3, L4 Power-Sebastian osteotomies, resection of tumor L1-S1, and intra- operative durotomy for epidural lipomatosis, facet arthropathy, and severe spinal stenosis. Neuro #POD#7 s/p L1-S1 laminectomies, L4-L5 PLIF, L3, L4 Power-Sebastian osteotomies, resection of tumor L1-S1, and intra-operative durotomy -drain removed -pain control with APAP and oxycodone PRN, flexeril PRN and gabapentin -PT CV #HTN -continue lisinopril and coreg 12.5 -ASA to be resumed once hemostasis is achieved and cleared by surgery Pulm -incentive spirometry #ALEXANDER -CPAP HS ID afebrile, wbc of 10.7 -continue to monitor Heme -Hgb of 8.8, continue to monitor -platelets of 158, continue to monitor GI -had a BM -continue senna, colace, and miralax FEN/ppx -po fluids -electrolytes wnl -regular diet -no GI ppx indicated -SCDs per neurosurgery Dispo -ready for discharge to SNF. If SNF can't be arranged by end of day, can be transferred to floors. Case discussed with attending, Dr. Wolfe. -Buddy Wolf MD PGY1 ICU Team Visit type - Emergency Visit Emergency Visit: Yes ED Registration Date: 09/22/17 Care time: The patient presented to the Emergency Department on the above date and was hospitalized for further evaluation of their emergent condition. - New Patient This patient is new to me today: No - Critical Care Critical Care patient: Yes Total Critical Care Time (in minutes): 35 Critical Care Statement: The care of this patient involved high complexity decision making to prevent further life threatening deterioration of the patient 's condition and/or to evaluate & treat vital organ system(s) failure or risk of failure.
--- NOTE | 2017-09-30 14:47 | PN ---
Teaching Attending Note Name of Resident: Buddy Wolf ATTENDING PHYSICIAN STATEMENT I saw and evaluated the patient. I reviewed the resident's note and discussed the case with the resident. I agree with the resident's findings and plan as documented. SUBJECTIVE: Patient seen and examined in the ICU. Pain controlled at present. No fevers or chills. No nausea or vomiting today. OBJECTIVE: Intake & Output 09/27/17 09/28/17 09/29/17 09/30/17 23:59 23:59 23:59 23:59 Intake Total 1900 2900 1400 Output Total 5700 2470 1725 200 Balance -3800 430 -325 -200 Weight 273 lb 9.498 oz Last Vital Signs Temp Pulse Resp BP Pulse Ox 98.5 F 86 18 129/67 93 L 09/30/17 10:00 09/30/17 10:00 09/30/17 10:00 09/30/17 10:00 09/30/17 08:51 Active Medications Acetaminophen (Tylenol -) 1,000 mg PO Q6H PRN PRN Reason: PAIN Last Admin: 09/28/17 17:29 Dose: 1,000 mg Carvedilol (Coreg -) 12.5 mg PO BID [facility] Last Admin: 09/30/17 09:51 Dose: 12.5 mg Cyclobenzaprine HCl (Flexeril -) 5 mg PO TID PRN PRN Reason: BACK PAIN Last Admin: 09/29/17 22:31 Dose: 5 mg Docusate Sodium (Colace -) 100 mg PO BID [facility] Last Admin: 09/30/17 09:50 Dose: 100 mg Gabapentin (Neurontin -) 300 mg PO BID [facility] Last Admin: 09/30/17 09:51 Dose: 300 mg Lisinopril (Prinivil) 20 mg PO DAILY [facility] Last Admin: 09/30/17 09:51 Dose: 20 mg Morphine Sulfate (Morphine Injection -) 2 mg IVPUSH Q4H PRN PRN Reason: PAIN Ondansetron HCl (Zofran Injection) 4 mg IVPUSH Q6H PRN PRN Reason: NAUSEA AND/OR VOMITING Oxycodone HCl (Roxicodone -) 10 mg PO Q4H PRN PRN Reason: PAIN LEVEL 6-10 Last Admin: 09/30/17 07:54 Dose: 10 mg Oxycodone HCl (Roxicodone -) 5 mg PO Q4H PRN PRN Reason: PAIN LEVEL 4 - 6 Polyethylene Glycol (Miralax (For Daily Use) -) 17 gm PO DAILY [facility] Last Admin: 09/30/17 09:53 Dose: 17 gm Promethazine HCl (Phenergan Injection -) 12.5 mg IVPUSH Q4H PRN PRN Reason: NAUSEA AND/OR VOMITING Last Admin: 09/25/17 21:19 Dose: 12.5 mg Senna (Senna -) 2 tab PO HS [facility] Last Admin: 09/29/17 21:34 Dose: 2 tab Gen: NAD at rest Heart: RRR Lung: decreased breath sounds at the bases Abd: soft, nontender Ext: no edema Laboratory Results - last 24 hr 09/30/17 09/30/17 08:15 08:15 WBC 12.6 H RBC 3.17 L Hgb 8.7 L Hct 26.7 L MCV 84.4 MCH 27.6 MCHC 32.7 RDW 14.7 Plt Count 185 MPV 10.5 Neutrophils % 64.9 Lymphocytes % 21.9 D Monocytes % 11.9 H Eosinophils % 0.9 Basophils % 0.4 Sodium 139 Potassium 4.4 Chloride 102 Carbon Dioxide 26 Anion Gap 11 BUN 11 D Creatinine 0.7 Creat Clearance w eGFR > 60 Random Glucose 104 D Calcium 8.7 Total Bilirubin 0.3 AST 66 H D ALT 117 H D Alkaline Phosphatase 105 D Total Protein 6.1 L Albumin 2.6 L ASSESSMENT AND PLAN: Lumbar Spinal Stenosis s/p L1-S1 Laminectomies/tumor resection/L1-S1 PISF HTN Obstructive Sleep Apnea Syndrome - pain control, try to minimize opiates / Flexeril - incentive spirometry - PO as tolerated - monitor drain output - mechanical DVT prophylaxis - bowel regimen - CPAP at night - disposition per surgery Dr Wolfe
[2017-09-30] MEDS: HYDROmorphone *PCA* 10MG/50ML DISP.SYRIN PCA SCH (17:39)
--- NOTE | 2017-09-30 17:58 | PN ---
Progress Note (short form) - Note Progress Note: Subjective: The patient was seen and examined at the bedside, he denies any complaints at this time Had a bowel movement yesterday Current Medications Generic Name Dose Route Start Last Admin Trade Name Freq PRN Reason Stop Dose Admin Acetaminophen 1,000 mg 09/27/17 09:10 09/28/17 17:29 Tylenol - PO 1,000 mg Q6H PRN Administration PAIN Carvedilol 12.5 mg 09/26/17 09:45 09/30/17 09:51 Coreg - PO 12.5 mg BID MICHELL Administration Cyclobenzaprine HCl 5 mg 09/29/17 10:04 09/29/17 22:31 Flexeril - PO 5 mg TID PRN Administration BACK PAIN Docusate Sodium 100 mg 09/25/17 10:00 09/30/17 09:50 Colace - PO 100 mg BID MICHELL Administration Gabapentin 300 mg 09/24/17 22:00 09/30/17 09:51 Neurontin - PO 300 mg BID MICHELL Administration Lisinopril 20 mg 09/25/17 06:54 09/30/17 09:51 Prinivil PO 20 mg DAILY MICHELL Administration Morphine Sulfate 2 mg 09/30/17 09:00 Morphine Injection - IVPUSH Q4H PRN PAIN Ondansetron HCl 4 mg 09/23/17 23:02 Zofran Injection IVPUSH Q6H PRN NAUSEA AND/OR VOMITING Oxycodone HCl 10 mg 09/27/17 09:09 09/30/17 17:13 Roxicodone - PO 10 mg Q4H PRN Administration PAIN LEVEL 6-10 Oxycodone HCl 5 mg 09/27/17 09:09 Roxicodone - PO Q4H PRN PAIN LEVEL 4 - 6 Polyethylene Glycol 17 gm 09/24/17 11:45 09/30/17 09:53 Miralax (For Daily Use) - PO 17 gm DAILY MICHELL Administration Promethazine HCl 12.5 mg 09/24/17 18:16 09/25/17 21:19 Phenergan Injection - IVPUSH 12.5 mg Q4H PRN Administration NAUSEA AND/OR VOMITING Senna 2 tab 09/25/17 22:00 09/29/17 21:34 Senna - PO 2 tab HS MICHELL Administration Objective: Vital Signs Period Temp Pulse Resp BP Sys/Dougherty Pulse Ox Last 24 Hr 98.4 F-99.0 F 68-96 18-28 115-160/62-90 93-99 Physical Exam: General: NAD, A&Ox3 Lungs: CTA bilaterally Heart: RRR, S1S2 Abd: Soft, non-tender. Normoactive bowel sounds Neuro: CN 2-12 intact CBCD WBC 12.6 K/mm3 (4.0-10.0) H 09/30/17 08:15 RBC 3.17 M/mm3 (4.00-5.60) L 09/30/17 08:15 Hgb 8.7 GM/dL (11.7-16.9) L 09/30/17 08:15 Hct 26.7 % (35.4-49) L 09/30/17 08:15 MCV 84.4 fl (80-96) 09/30/17 08:15 MCHC 32.7 g/dl (32.0-35.9) 09/30/17 08:15 RDW 14.7 % (11.9-15.9) 09/30/17 08:15 Plt Count 185 K/MM3 (134-434) 09/30/17 08:15 MPV 10.5 fl (7.5-11.1) 09/30/17 08:15 CMP Sodium 139 mmol/L (136-145) 09/30/17 08:15 Potassium 4.4 mmol/L (3.5-5.1) 09/30/17 08:15 Chloride 102 mmol/L (98-107) 09/30/17 08:15 Carbon Dioxide 26 mmol/L (21-32) 09/30/17 08:15 Anion Gap 11 (8-16) 09/30/17 08:15 BUN 11 mg/dL (7-18) D 09/30/17 08:15 Creatinine 0.7 mg/dL (0.7-1.3) 09/30/17 08:15 Creat Clearance w eGFR > 60 (>60) 09/30/17 08:15 Random Glucose 104 mg/dL (74-106) D 09/30/17 08:15 Calcium 8.7 mg/dL (8.5-10.1) 09/30/17 08:15 Total Bilirubin 0.3 mg/dL (0.2-1.0) 09/30/17 08:15 AST 66 U/L (15-37) H D 09/30/17 08:15 ALT 117 U/L (12-78) H D 09/30/17 08:15 Alkaline Phosphatase 105 U/L (45-117) D 09/30/17 08:15 Total Protein 6.1 g/dl (6.4-8.2) L 09/30/17 08:15 Albumin 2.6 g/dl (3.4-5.0) L 09/30/17 08:15 CARDIAC ENZYMES Creatine Kinase 203 IU/L (39-308) 09/23/17 07:39 Troponin I < 0.02 ng/ml (0.00-0.05) 09/23/17 07:39 Assessment: This is a 56 year old male with PMHx of HTN, chronic back pain who presented to an acute exacerbation of his back pain. Plan: 1) Acute on chronic exacerbation of back pain - S/p L1-S1 laminectomies, L4-L5 PLIF, L3, L4 Power-Sebastian osteotomies, Resection of tumor L1-S1. L1-S1 PISF on 09/23 - Pain management - Incentive spirometer - PT - Monitor drain output - Appreciate surgery consult 2) HTN - Continue Lisinopril - Continue Coreg 3) Obstructive sleep apnea - Cpap at night - Outpatient sleep study 4) B/l lower extremity pitting edema - Patient reports non-compliance with Lasix, he reports "normal" ECHO 12/2016 - ECHO with low normal LV EF between 50-55%, with trace TR - BNP wnl, trop negative -Add ASA once cleared by surgery - Appreciate cardiology consult 5) Thrombocytopenia - Resolved 6) F/E/N: - IV fluids - Regular diet 7) Prophylaxis: - SCDs ONLY - No chemical DVT prophylaxis per surgery - Bowel regimen 8) Dispo: - Awaiting SNF placement CODE STATUS: FULL CODE Visit type - Emergency Visit Emergency Visit: Yes ED Registration Date: 09/22/17 Care time: The patient presented to the Emergency Department on the above date and was hospitalized for further evaluation of their emergent condition. - New Patient This patient is new to me today: No - Critical Care Critical Care patient: No
[2017-09-30] MEDS: ACETAMINOPHEN 500 MG TABLET (FP) PO PRN (19:31)
[2017-09-30] MEDS: CYCLOBENZAPRINE HCL 10 MG TABLET (FP) PO PRN (19:32)
[2017-09-30] MEDS: SENNOSIDES 8.6MG TABLET (FP) PO SCH (21:52)
[2017-10-01] MEDS: ACETAMINOPHEN 500 MG TABLET (FP) PO PRN ×3 (05:01→21:16)
[2017-10-01] MEDS: oxyCODONE HCL 5 MG TABLET PO PRN ×2 (05:02→13:57)
[2017-10-01] MEDS: CYCLOBENZAPRINE HCL 10 MG TABLET (FP) PO PRN ×2 (05:04→21:15)
[2017-10-01 07:59] LABS: BASO % 0.5 % (0-2.0); EOS % 1.3 % (0-4.5); HEMATOCRIT 26.2 % (35.4-49); HEMOGLOBIN 8.6 GM/dL (11.7-16.9); LYMPH % 19.1 % (8-40); MCH 27.9 pg (25.7-33.7); MCHC 32.7 g/dl (32.0-35.9); MEAN CELL VOLUME 85.3 fl (80-96); MEAN PLT VOLUME 10.3 fl (7.5-11.1); MONO % 10.4 % (3.8-10.2); NEUT % 68.7 % (42.8-82.8); PLATELET COUNT 220 K/MM3 (134-434); RBC 3.07 M/mm3 (4.00-5.60); RDW 14.9 % (11.9-15.9); WHITE BLOOD COUNT 13.2 K/mm3 (4.0-10.0)
[2017-10-01 08:44] LABS: ALBUMIN 2.6 g/dl (3.4-5.0); ALK PHOS 105 U/L (45-117); ANION GAP 6 (8-16); BILIRUBIN,TOTAL 0.2 mg/dL (0.2-1.0); BLOOD UREA NITROGEN 14 mg/dL (7-18); CALCIUM 8.1 mg/dL (8.5-10.1); CHLORIDE 103 mmol/L (98-107); CO2 27 mmol/L (21-32); CREATININE 0.7 mg/dL (0.7-1.3); GLUCOSE,RANDOM 109 mg/dL (74-106); MAGNESIUM 2.1 mg/dL (1.8-2.4); POTASSIUM 4.4 mmol/L (3.5-5.1); SGOT/AST 47 U/L (15-37); SGPT/ALT 104 U/L (12-78); SODIUM 136 mmol/L (136-145)
--- NOTE | 2017-10-01 08:59 | PN ---
Progress Note (short form) - Note Progress Note: Subjective: The patient was seen and examined at the bedside, he denies any complaints at this time WBC trending up Current Medications Generic Name Dose Route Start Last Admin Trade Name Freq PRN Reason Stop Dose Admin Acetaminophen 1,000 mg 09/27/17 09:10 10/01/17 05:01 Tylenol - PO 1,000 mg Q6H PRN Administration PAIN Carvedilol 12.5 mg 09/26/17 09:45 09/30/17 21:51 Coreg - PO 12.5 mg BID MICHELL Administration Cyclobenzaprine HCl 5 mg 09/29/17 10:04 10/01/17 05:04 Flexeril - PO 5 mg TID PRN Administration BACK PAIN Docusate Sodium 100 mg 09/25/17 10:00 09/30/17 21:51 Colace - PO 100 mg BID MICHELL Administration Gabapentin 300 mg 09/24/17 22:00 09/30/17 21:51 Neurontin - PO 300 mg BID MICHELL Administration Lisinopril 20 mg 09/25/17 06:54 09/30/17 09:51 Prinivil PO 20 mg DAILY MICHELL Administration Morphine Sulfate 2 mg 09/30/17 09:00 Morphine Injection - IVPUSH Q4H PRN PAIN Ondansetron HCl 4 mg 09/23/17 23:02 Zofran Injection IVPUSH Q6H PRN NAUSEA AND/OR VOMITING Oxycodone HCl 10 mg 09/27/17 09:09 10/01/17 05:02 Roxicodone - PO 10 mg Q4H PRN Administration PAIN LEVEL 6-10 Oxycodone HCl 5 mg 09/27/17 09:09 Roxicodone - PO Q4H PRN PAIN LEVEL 4 - 6 Oxycodone HCl 10 mg 10/01/17 10:00 Oxycontin - PO BID MICHELL Polyethylene Glycol 17 gm 09/24/17 11:45 09/30/17 09:53 Miralax (For Daily Use) - PO 17 gm DAILY MICHELL Administration Promethazine HCl 12.5 mg 09/24/17 18:16 09/25/17 21:19 Phenergan Injection - IVPUSH 12.5 mg Q4H PRN Administration NAUSEA AND/OR VOMITING Senna 2 tab 09/25/17 22:00 04/16/18 21:52 Senna - PO 2 tab HS MICHELL Administration Objective: Vital Signs Period Temp Pulse Resp BP Sys/Dougherty Pulse Ox Last 24 Hr 98.4 F-99.1 F 67-96 18-22 129-160/67-90 Physical Exam: General: NAD, A&Ox3 Lungs: CTA bilaterally Heart: RRR, S1S2 Abd: Soft, non-tender. Normoactive bowel sounds Neuro: CN 2-12 intact CBCD WBC 13.2 K/mm3 (4.0-10.0) H 10/01/17 06:40 RBC 3.07 M/mm3 (4.00-5.60) L 10/01/17 06:40 Hgb 8.6 GM/dL (11.7-16.9) L 10/01/17 06:40 Hct 26.2 % (35.4-49) L 10/01/17 06:40 MCV 85.3 fl (80-96) 10/01/17 06:40 MCHC 32.7 g/dl (32.0-35.9) 10/01/17 06:40 RDW 14.9 % (11.9-15.9) 10/01/17 06:40 Plt Count 220 K/MM3 (134-434) 10/01/17 06:40 MPV 10.3 fl (7.5-11.1) 10/01/17 06:40 CMP Sodium 136 mmol/L (136-145) 10/01/17 06:40 Potassium 4.4 mmol/L (3.5-5.1) 10/01/17 06:40 Chloride 103 mmol/L (98-107) 10/01/17 06:40 Carbon Dioxide 27 mmol/L (21-32) 10/01/17 06:40 Anion Gap 6 (8-16) L 10/01/17 06:40 BUN 14 mg/dL (7-18) D 10/01/17 06:40 Creatinine 0.7 mg/dL (0.7-1.3) 10/01/17 06:40 Creat Clearance w eGFR > 60 (>60) 10/01/17 06:40 Random Glucose 109 mg/dL (74-106) H 10/01/17 06:40 Calcium 8.1 mg/dL (8.5-10.1) L 10/01/17 06:40 Total Bilirubin 0.2 mg/dL (0.2-1.0) D 10/01/17 06:40 AST 47 U/L (15-37) H D 10/01/17 06:40 ALT 104 U/L (12-78) H 10/01/17 06:40 Alkaline Phosphatase 105 U/L (45-117) 10/01/17 06:40 Total Protein 6.0 g/dl (6.4-8.2) L 10/01/17 06:40 Albumin 2.6 g/dl (3.4-5.0) L 10/01/17 06:40 CARDIAC ENZYMES Creatine Kinase 203 IU/L (39-308) 09/23/17 07:39 Troponin I < 0.02 ng/ml (0.00-0.05) 09/23/17 07:39 Assessment: This is a 56 year old male with PMHx of HTN, chronic back pain who presented to an acute exacerbation of his back pain. Plan: 1) Acute on chronic exacerbation of back pain - S/p L1-S1 laminectomies, L4-L5 PLIF, L3, L4 Power-Sebastian osteotomies, Resection of tumor L1-S1. L1-S1 PISF on 09/23 - Pain management - Incentive spirometer - PT - Appreciate surgery consult 2) Leukocytosis - Worsening today - Patient denies cough, fever, chills, urinary symptoms (dysuria, frequency, urgency) 3) HTN - Continue Lisinopril - Continue Coreg 3) Obstructive sleep apnea - Cpap at night - Outpatient sleep study 4) B/l lower extremity pitting edema - ECHO with low normal LV EF between 50-55%, with trace TR -Add ASA once cleared by surgery - Appreciate cardiology consult 5) Thrombocytopenia - Resolved 6) F/E/N: - Regular diet 7) Prophylaxis: - SCDs ONLY - No chemical DVT prophylaxis per surgery - Bowel regimen 8) Dispo: - Awaiting SNF placement CODE STATUS: FULL CODE Visit type - Emergency Visit Emergency Visit: Yes ED Registration Date: 09/22/17 Care time: The patient presented to the Emergency Department on the above date and was hospitalized for further evaluation of their emergent condition. - New Patient This patient is new to me today: No - Critical Care Critical Care patient: No
--- NOTE | 2017-10-01 09:22 | PN ---
Progress Note, Physician Chief Complaint: Events noted Not in distress History of Present Illness: Patient was seen and examined. Awake and alert. Chart was reviewed Denies chest pain, SOB or palpitations - Current Medication List Current Medications: Active Medications Acetaminophen (Tylenol -) 1,000 mg PO Q6H PRN PRN Reason: PAIN Last Admin: 10/01/17 05:01 Dose: 1,000 mg Carvedilol (Coreg -) 12.5 mg PO BID [facility] Last Admin: 09/30/17 21:51 Dose: 12.5 mg Cyclobenzaprine HCl (Flexeril -) 5 mg PO TID PRN PRN Reason: BACK PAIN Last Admin: 10/01/17 05:04 Dose: 5 mg Docusate Sodium (Colace -) 100 mg PO BID [facility] Last Admin: 09/30/17 21:51 Dose: 100 mg Gabapentin (Neurontin -) 300 mg PO BID [facility] Last Admin: 09/30/17 21:51 Dose: 300 mg Lisinopril (Prinivil) 20 mg PO DAILY [facility] Last Admin: 09/30/17 09:51 Dose: 20 mg Morphine Sulfate (Morphine Injection -) 2 mg IVPUSH Q4H PRN PRN Reason: PAIN Ondansetron HCl (Zofran Injection) 4 mg IVPUSH Q6H PRN PRN Reason: NAUSEA AND/OR VOMITING Oxycodone HCl (Roxicodone -) 10 mg PO Q4H PRN PRN Reason: PAIN LEVEL 6-10 Last Admin: 10/01/17 05:02 Dose: 10 mg Oxycodone HCl (Roxicodone -) 5 mg PO Q4H PRN PRN Reason: PAIN LEVEL 4 - 6 Oxycodone HCl (Oxycontin -) 10 mg PO BID [facility] Polyethylene Glycol (Miralax (For Daily Use) -) 17 gm PO DAILY [facility] Last Admin: 09/30/17 09:53 Dose: 17 gm Promethazine HCl (Phenergan Injection -) 12.5 mg IVPUSH Q4H PRN PRN Reason: NAUSEA AND/OR VOMITING Last Admin: 09/25/17 21:19 Dose: 12.5 mg Senna (Senna -) 2 tab PO HS [facility] Last Admin: 09/30/17 21:52 Dose: 2 tab - Objective Vital Signs: Vital Signs Temperature 99.1 F 10/01/17 06:00 Pulse Rate 67 10/01/17 06:00 Respiratory Rate 20 10/01/17 06:00 Blood Pressure 132/71 10/01/17 06:00 O2 Sat by Pulse Oximetry (%) 93 L 09/30/17 08:51 Constitutional: Yes: Well Nourished HENT: Yes: Atraumatic Neck: Yes: Supple Cardiovascular: Yes: Regular Rate and Rhythm, Murmur (Soft SM), S1, S2 Respiratory: Yes: CTA Bilaterally Gastrointestinal: Yes: Normal Bowel Sounds, Soft. No: Tenderness Edema: Yes Edema: LLE: Trace, RLE: Trace Labs: CBC, BMP 10/01/17 06:40 10/01/17 06:40 Problem List - Problems (1) S/P lumbar laminectomy Code(s): Z98.890 - OTHER SPECIFIED POSTPROCEDURAL STATES (2) Lumbar stenosis Code(s): M48.061 - SPINAL STENOSIS, LUMBAR REGION WITHOUT NEUROGENIC ALINA (3) HTN (hypertension) Code(s): I10 - ESSENTIAL (PRIMARY) HYPERTENSION Qualifiers: Hypertension type: essential hypertension Qualified Code(s): I10 - Essential (primary) hypertension (4) Thrombocytopenia Code(s): D69.6 - THROMBOCYTOPENIA, UNSPECIFIED Assessment/Plan 1. Lumbar spinal stenosis with neurogenic claudication, POD#3 post Epidural lipomatosis post L1-S1 laminectomies, L4-L5 PLIF (posterior lumbar interbody fusion), L3, L4 Power-Sebastian osteotomies, Resection of tumor L1-S1, L1-S1 PISF and Complex wound closure 2. LV systolic/diastolic dysfunction with class 0 NYHA classification LV failure , compensated/euvolemic 3. CAD angina pectoris to be excluded as culprit for the above noted LV dysfunction 4. HTN 5. Peripheral edema most likely related to chronic venous insufficiency 6. Thrombocytopenia PLAN: 1. Pain management and post operative care + physical therapy 2. Continue Lisinopril as tolerated 3. Continue Coreg as tolerated 4. Add ASA once hemostasis is achieved and cleared by surgery 5. As outlined additional cardiovascular evaluation is recommended including myocardial perfusion imaging study to be performed as outpatient once patient is fully ambulatory Further evaluation to follow Kalpesh Trevino MD
[2017-10-01] MEDS: oxyCODONE HCL 10 MG SUSTAINED ACTING TABLET PO SCH ×2 (09:55→21:14)
[2017-10-01] MEDS: LISINOPRIL 20 MG TABLET (FP) PO SCH (09:56)
[2017-10-01] MEDS: DOCUSATE SODIUM 100 MG CAPSULE (FP) PO SCH ×2 (09:56→21:13)
[2017-10-01] MEDS: POLYETHYLENE GLYCOL 3350 119 GM BTL PO SCH (09:56)
[2017-10-01] MEDS: CARVEDILOL 6.25 MG TABLET (FP) PO SCH ×2 (09:56→21:13)
[2017-10-01] MEDS: GABAPENTIN 300 MG CAPSULE (FP) PO SCH ×2 (09:57→21:13)
[2017-10-01 16:18] LABS: HEMATOCRIT 27.5 % (35.4-49); HEMOGLOBIN 9.1 GM/dL (11.7-16.9); MCH 28.3 pg (25.7-33.7); MCHC 33.2 g/dl (32.0-35.9); MEAN CELL VOLUME 85.3 fl (80-96); MEAN PLT VOLUME 10.7 fl (7.5-11.1); PLATELET COUNT 251 K/MM3 (134-434); RBC 3.22 M/mm3 (4.00-5.60); RDW 14.8 % (11.9-15.9)
--- NOTE | 2017-10-01 19:42 | PN ---
Progress Note (short form) - Note Progress Note: Still slow in rehab due to LBP on walking Wound Dry No headache Leg pain in the adductor compartment thighs bilat Abd Distended Did pass stool. PLAN PT mobilize D/C to rehab See in office 3 weeks
[2017-10-01] MEDS: SENNOSIDES 8.6MG TABLET (FP) PO SCH (21:15)
[2017-10-02] MEDS: oxyCODONE HCL 5 MG TABLET PO PRN ×2 (05:24→16:12)
[2017-10-02 07:50] LABS: HEMATOCRIT 26.8 % (35.4-49); HEMOGLOBIN 8.8 GM/dL (11.7-16.9); MCH 27.8 pg (25.7-33.7); MCHC 32.9 g/dl (32.0-35.9); MEAN CELL VOLUME 84.4 fl (80-96); MEAN PLT VOLUME 10.4 fl (7.5-11.1); PLATELET COUNT 264 K/MM3 (134-434); RBC 3.18 M/mm3 (4.00-5.60); RDW 14.9 % (11.9-15.9); WHITE BLOOD COUNT 14.9 K/mm3 (4.0-10.0)
[2017-10-02 08:22] LABS: ALBUMIN 2.7 g/dl (3.4-5.0); ANION GAP 7 (8-16); CALCIUM 8.1 mg/dL (8.5-10.1); CHLORIDE 103 mmol/L (98-107); CO2 26 mmol/L (21-32); POTASSIUM 4.4 mmol/L (3.5-5.1); SODIUM 136 mmol/L (136-145)
[2017-10-02 08:29] LABS: ALK PHOS 115 U/L (45-117); BILIRUBIN,TOTAL 0.2 mg/dL (0.2-1.0); BLOOD UREA NITROGEN 13 mg/dL (7-18); CREATININE 0.7 mg/dL (0.7-1.3); GLUCOSE,RANDOM 103 mg/dL (74-106); SGOT/AST 39 U/L (15-37); SGPT/ALT 95 U/L (12-78); TOT PROT 6.3 g/dl (6.4-8.2)
[2017-10-02] MEDS ORDERED: PT OWN MED DRAWER 7, Y5N ONE (09:52)
[2017-10-02] MEDS: CARVEDILOL 6.25 MG TABLET (FP) PO SCH ×2 (10:01→21:15)
[2017-10-02] MEDS: DOCUSATE SODIUM 100 MG CAPSULE (FP) PO SCH ×2 (10:01→21:15)
[2017-10-02] MEDS: POLYETHYLENE GLYCOL 3350 119 GM BTL PO SCH (10:04)
[2017-10-02] MEDS: oxyCODONE HCL 10 MG SUSTAINED ACTING TABLET PO SCH ×2 (10:05→21:14)
[2017-10-02] MEDS: LISINOPRIL 20 MG TABLET (FP) PO SCH (10:05)
[2017-10-02] MEDS: GABAPENTIN 300 MG CAPSULE (FP) PO SCH ×2 (10:05→21:15)
--- NOTE | 2017-10-02 12:26 | PN ---
Progress Note, Physician History of Present Illness: Pain controlled, denies chest pain or dyspnea, BP with improved control, tolerating PT. - Current Medication List Current Medications: Active Medications Acetaminophen (Tylenol -) 1,000 mg PO Q6H PRN PRN Reason: PAIN Last Admin: 10/01/17 21:16 Dose: 1,000 mg Carvedilol (Coreg -) 12.5 mg PO BID [facility] Last Admin: 10/02/17 10:01 Dose: 12.5 mg Cyclobenzaprine HCl (Flexeril -) 5 mg PO TID PRN PRN Reason: BACK PAIN Last Admin: 10/01/17 21:15 Dose: 5 mg Docusate Sodium (Colace -) 100 mg PO BID [facility] Last Admin: 10/02/17 10:01 Dose: 100 mg Gabapentin (Neurontin -) 300 mg PO BID [facility] Last Admin: 10/02/17 10:05 Dose: 300 mg Lisinopril (Prinivil) 20 mg PO DAILY [facility] Last Admin: 10/02/17 10:05 Dose: 20 mg Morphine Sulfate (Morphine Injection -) 2 mg IVPUSH Q4H PRN PRN Reason: PAIN Ondansetron HCl (Zofran Injection) 4 mg IVPUSH Q6H PRN PRN Reason: NAUSEA AND/OR VOMITING Oxycodone HCl (Roxicodone -) 10 mg PO Q4H PRN PRN Reason: PAIN LEVEL 6-10 Last Admin: 10/02/17 05:24 Dose: 10 mg Oxycodone HCl (Roxicodone -) 5 mg PO Q4H PRN PRN Reason: PAIN LEVEL 4 - 6 Oxycodone HCl (Oxycontin -) 10 mg PO BID [facility] Last Admin: 10/02/17 10:05 Dose: 10 mg Polyethylene Glycol (Miralax (For Daily Use) -) 17 gm PO DAILY [facility] Last Admin: 10/02/17 10:04 Dose: 17 gm Promethazine HCl (Phenergan Injection -) 12.5 mg IVPUSH Q4H PRN PRN Reason: NAUSEA AND/OR VOMITING Last Admin: 09/25/17 21:19 Dose: 12.5 mg Senna (Senna -) 2 tab PO HS [facility] Last Admin: 10/01/17 21:15 Dose: 2 tab - Objective Vital Signs: Vital Signs Temperature 99 F 10/02/17 06:34 Pulse Rate 68 10/02/17 06:34 Respiratory Rate 20 10/02/17 06:34 Blood Pressure 127/77 10/02/17 06:34 O2 Sat by Pulse Oximetry (%) 96 10/01/17 21:00 Constitutional: Yes: No Distress, Calm Neck: Yes: Supple Cardiovascular: Yes: Regular Rate and Rhythm Respiratory: Yes: Regular, Diminished Gastrointestinal: Yes: Normal Bowel Sounds, Soft, Abdomen, Obese Edema: No Labs: CBC, BMP 10/02/17 06:30 10/02/17 06:30 - ....Imaging Chest X-ray: Report Reviewed (NAD) Problem List - Problems (1) Obstructive sleep apnea Code(s): G47.33 - OBSTRUCTIVE SLEEP APNEA (ADULT) (PEDIATRIC) (2) HTN (hypertension) Code(s): I10 - ESSENTIAL (PRIMARY) HYPERTENSION Qualifiers: Hypertension type: essential hypertension Qualified Code(s): I10 - Essential (primary) hypertension (3) S/P lumbar laminectomy Code(s): Z98.890 - OTHER SPECIFIED POSTPROCEDURAL STATES (4) Anemia Code(s): D64.9 - ANEMIA, UNSPECIFIED Qualifiers: Anemia type: unspecified type Qualified Code(s): D64.9 - Anemia, unspecified Assessment/Plan 1. Lumbar spinal stenosis with neurogenic claudication, POD#3 post Epidural lipomatosis post L1-S1 laminectomies, L4-L5 PLIF (posterior lumbar interbody fusion), L3, L4 Power-Sebastian osteotomies, Resection of tumor L1-S1, L1-S1 PISF and Complex wound closure 2. LV systolic/diastolic dysfunction with class 0 NYHA classification LV failure , compensated/euvolemic 3. CAD angina pectoris to be excluded as culprit for the above noted LV dysfunction 4. HTN 5. Peripheral edema most likely related to chronic venous insufficiency 6. Thrombocytopenia PLAN: 1. Pain management with bowel regimen, post operative care, physical therapy 2. Continue Lisinopril 20 qd as tolerated 3. Continue Coreg 12.5 bid as tolerated 4. Add ASA once hemostasis is achieved and cleared by surgery 5. As outlined additional cardiovascular evaluation is recommended including myocardial perfusion imaging study to be performed as outpatient once patient is fully ambulatory
[2017-10-02 12:28] LABS: URINE APPEARANCE SLCLOUDY; URINE BILIRUBIN NEGATIVE (<2.0 mg/dL); URINE BLOOD NEGATIVE (NEGATIVE); URINE COLOR YELLOW; URINE GLUCOSE (UA) NEGATIVE (NEGATIVE); URINE KETONE NEGATIVE (NEGATIVE); URINE LEUK ESTERASE NEGATIVE (NEGATIVE); URINE NITRITE NEGATIVE (NEGATIVE); URINE PROTEIN NEGATIVE (NEGATIVE)
--- NOTE | 2017-10-02 18:13 | PN ---
Progress Note (short form) - Note Progress Note: Subjective: The patient was seen and examined at the bedside, he denies any complaints at this time WBC trending up Current Medications Generic Name Dose Route Start Last Admin Trade Name Freq PRN Reason Stop Dose Admin Acetaminophen 1,000 mg 09/27/17 09:10 10/01/17 21:16 Tylenol - PO 1,000 mg Q6H PRN Administration PAIN Carvedilol 12.5 mg 09/26/17 09:45 10/02/17 10:01 Coreg - PO 12.5 mg BID MICHELL Administration Cyclobenzaprine HCl 5 mg 09/29/17 10:04 10/01/17 21:15 Flexeril - PO 5 mg TID PRN Administration BACK PAIN Docusate Sodium 100 mg 09/25/17 10:00 10/02/17 10:01 Colace - PO 100 mg BID MICHELL Administration Gabapentin 300 mg 09/24/17 22:00 10/02/17 10:05 Neurontin - PO 300 mg BID MICHELL Administration Lisinopril 20 mg 09/25/17 06:54 10/02/17 10:05 Prinivil PO 20 mg DAILY [facility] Administration Morphine Sulfate 2 mg 09/30/17 09:00 Morphine Injection - IVPUSH Q4H PRN PAIN Ondansetron HCl 4 mg 09/23/17 23:02 Zofran Injection IVPUSH Q6H PRN NAUSEA AND/OR VOMITING Oxycodone HCl 10 mg 09/27/17 09:09 10/02/17 16:12 Roxicodone - PO 10 mg Q4H PRN Administration PAIN LEVEL 6-10 Oxycodone HCl 5 mg 09/27/17 09:09 Roxicodone - PO Q4H PRN PAIN LEVEL 4 - 6 Oxycodone HCl 10 mg 10/01/17 10:00 10/02/17 10:05 Oxycontin - PO 10 mg BID MICHELL Administration Polyethylene Glycol 17 gm 09/24/17 11:45 10/02/17 10:04 Miralax (For Daily Use) - PO 17 gm DAILY [facility] Administration Promethazine HCl 12.5 mg 09/24/17 18:16 09/25/17 21:19 Phenergan Injection - IVPUSH 12.5 mg Q4H PRN Administration NAUSEA AND/OR VOMITING Senna 2 tab 09/25/17 22:00 10/01/17 21:15 Senna - PO 2 tab HS MICHELL Administration Objective: Vital Signs Period Temp Pulse Resp BP Sys/Dougherty Pulse Ox Last 24 Hr 98.1 F-99 F 68-88 20-22 114-127/58-77 96 Physical Exam: General: NAD, A&Ox3 Lungs: CTA bilaterally Heart: RRR, S1S2 Abd: Soft, non-tender. Normoactive bowel sounds Neuro: CN 2-12 intact CBCD WBC 14.9 K/mm3 (4.0-10.0) H 10/02/17 06:30 RBC 3.18 M/mm3 (4.00-5.60) L 10/02/17 06:30 Hgb 8.8 GM/dL (11.7-16.9) L 10/02/17 06:30 Hct 26.8 % (35.4-49) L 10/02/17 06:30 MCV 84.4 fl (80-96) 10/02/17 06:30 MCHC 32.9 g/dl (32.0-35.9) 10/02/17 06:30 RDW 14.9 % (11.9-15.9) 10/02/17 06:30 Plt Count 264 K/MM3 (134-434) 10/02/17 06:30 MPV 10.4 fl (7.5-11.1) 10/02/17 06:30 CMP Sodium 136 mmol/L (136-145) 10/02/17 06:30 Potassium 4.4 mmol/L (3.5-5.1) 10/02/17 06:30 Chloride 103 mmol/L (98-107) 10/02/17 06:30 Carbon Dioxide 26 mmol/L (21-32) 10/02/17 06:30 Anion Gap 7 (8-16) L 10/02/17 06:30 BUN 13 mg/dL (7-18) 10/02/17 06:30 Creatinine 0.7 mg/dL (0.7-1.3) 10/02/17 06:30 Creat Clearance w eGFR > 60 (>60) 10/02/17 06:30 Random Glucose 103 mg/dL (74-106) 10/02/17 06:30 Calcium 8.1 mg/dL (8.5-10.1) L 10/02/17 06:30 Total Bilirubin 0.2 mg/dL (0.2-1.0) 10/02/17 06:30 AST 39 U/L (15-37) H 10/02/17 06:30 ALT 95 U/L (12-78) H 10/02/17 06:30 Alkaline Phosphatase 115 U/L (45-117) 10/02/17 06:30 Total Protein 6.3 g/dl (6.4-8.2) L 10/02/17 06:30 Albumin 2.7 g/dl (3.4-5.0) L 10/02/17 06:30 CARDIAC ENZYMES Creatine Kinase 203 IU/L (39-308) 09/23/17 07:39 Troponin I < 0.02 ng/ml (0.00-0.05) 09/23/17 07:39 Assessment: This is a 56 year old male with PMHx of HTN, chronic back pain who presented to an acute exacerbation of his back pain. Plan: 1) Acute on chronic exacerbation of back pain - S/p L1-S1 laminectomies, L4-L5 PLIF, L3, L4 Power-Sebastian osteotomies, Resection of tumor L1-S1. L1-S1 PISF on 09/23 - Pain management - Incentive spirometer - PT - Appreciate surgery consult 2) Leukocytosis - Worsening today - Patient denies cough, fever, chills, urinary symptoms (dysuria, frequency, urgency) 3) HTN - Continue Lisinopril - Continue Coreg 3) Obstructive sleep apnea - Cpap at night - Outpatient sleep study 4) B/l lower extremity pitting edema - ECHO with low normal LV EF between 50-55%, with trace TR -Add ASA once cleared by surgery - Appreciate cardiology consult 5) Thrombocytopenia - Resolved 6) F/E/N: - Regular diet 7) Prophylaxis: - SCDs ONLY - No chemical DVT prophylaxis per surgery - Bowel regimen 8) Dispo: - Awaiting SNF placement CODE STATUS: FULL CODE
[2017-10-02] MEDS: SENNOSIDES 8.6MG TABLET (FP) PO SCH (21:15)
[2017-10-02] MEDS: CYCLOBENZAPRINE HCL 10 MG TABLET (FP) PO PRN (21:21)
[2017-10-03] MEDS: oxyCODONE HCL 5 MG TABLET PO PRN ×2 (02:08→06:00)
[2017-10-03] MEDS: CYCLOBENZAPRINE HCL 10 MG TABLET (FP) PO PRN (06:00)
[2017-10-03 08:17] LABS: HEMOGLOBIN 8.8 GM/dL (11.7-16.9); MCH 27.6 pg (25.7-33.7); MCHC 32.7 g/dl (32.0-35.9); MEAN CELL VOLUME 84.6 fl (80-96); PLATELET COUNT 294 K/MM3 (134-434); RDW 14.7 % (11.9-15.9); WHITE BLOOD COUNT 13.3 K/mm3 (4.0-10.0)
[2017-10-03 08:44] LABS: CHLORIDE 101 mmol/L (98-107); POTASSIUM 4.6 mmol/L (3.5-5.1); SODIUM 135 mmol/L (136-145)
[2017-10-03 08:51] LABS: ALBUMIN 2.8 g/dl (3.4-5.0); ALK PHOS 118 U/L (45-117); ANION GAP 6 (8-16); BILIRUBIN,TOTAL 0.2 mg/dL (0.2-1.0); BLOOD UREA NITROGEN 15 mg/dL (7-18); CALCIUM 8.4 mg/dL (8.5-10.1); CO2 28 mmol/L (21-32); CREATININE 0.8 mg/dL (0.7-1.3); GLUCOSE,RANDOM 99 mg/dL (74-106); SGOT/AST 30 U/L (15-37); SGPT/ALT 82 U/L (12-78); TOT PROT 6.3 g/dl (6.4-8.2)
[2017-10-03] MEDS ORDERED: PT OWN MED DRAWER 7, Y5N ONE (09:26)
[2017-10-03] MEDS: DOCUSATE SODIUM 100 MG CAPSULE (FP) PO SCH (09:28)
[2017-10-03] MEDS: CARVEDILOL 6.25 MG TABLET (FP) PO SCH (09:28)
[2017-10-03] MEDS: GABAPENTIN 300 MG CAPSULE (FP) PO SCH (09:30)
[2017-10-03] MEDS: oxyCODONE HCL 10 MG SUSTAINED ACTING TABLET PO SCH (09:30)
[2017-10-03] MEDS: POLYETHYLENE GLYCOL 3350 119 GM BTL PO SCH (09:30)
[2017-10-03] MEDS: LISINOPRIL 20 MG TABLET (FP) PO SCH (09:31)
--- NOTE | 2017-10-03 09:47 | DS ---
Physical Exam: SUBJECTIVE: Patient seen and examined. Sitting in chair. Had breakfast. Feels well, just got medicated for back pain. Denies any chest pain, denies abdominal pain or nausea. Denies urinary symptoms, denies chills, denies general malaise or weakness Has not had a BM x 3 days, will give dulcolax [place] x 1 prior to d/c Wants to go to rehab. OBJECTIVE: WBC trending down 14.9>13.3 No signs of infection: vitals stable, wbc trending down, no fever, feels well BC/UC pending Vital Signs Period Temp Pulse Resp BP Sys/Dougherty Pulse Ox Last 24 Hr 98.2 F-99.2 F 70-81 20-20 114-121/47-64 97 PHYSICAL EXAM GENERAL: The patient is awake, alert, and fully oriented, in no acute distress. HEAD: Normal with no signs of trauma. EYES: PERRL, extraocular movements intact, sclera anicteric, conjunctiva clear. No ptosis. ENT: Ears normal, nares patent, oropharynx clear without exudates, moist mucous membranes. NECK: Trachea midline, full range of motion, supple. LUNGS: Breath sounds equal anteriorly and posteriorly HEART: Regular rate and rhythm EXTREMITIES: no edema. NEUROLOGICAL: Normal speech, gait not observed. PSYCH: Normal mood, normal affect. SKIN: back dressing clean/dry/intact LABS Laboratory Results - last 24 hr 10/02/17 10/03/17 10/03/17 11:15 06:30 06:30 WBC 13.3 H RBC 3.20 L Hgb 8.8 L Hct 27.0 L MCV 84.6 MCH 27.6 MCHC 32.7 RDW 14.7 Plt Count 294 MPV 10.0 Sodium 135 L Potassium 4.6 Chloride 101 Carbon Dioxide 28 Anion Gap 6 L BUN 15 Creatinine 0.8 Creat Clearance w eGFR > 60 Random Glucose 99 Calcium 8.4 L Total Bilirubin 0.2 AST 30 D ALT 82 H Alkaline Phosphatase 118 H Total Protein 6.3 L Albumin 2.8 L Urine Color Yellow Urine Appearance Slcloudy Urine pH 5.0 Ur Specific [place] 1.021 Urine Protein Negative Urine Glucose (UA) Negative Urine Ketones Negative Urine Blood Negative Urine Nitrite Negative Urine Bilirubin Negative Urine Urobilinogen 2.0 Ur Leukocyte Esterase Negative HOSPITAL COURSE: Date of Admission:09/22/17 Date of Discharge: 10/03/17 ASSESSMENT/PLAN: Patient is a 56 year old male with a significant past medical history of hypertension, chronic back pain. He is s/p L1-S1 laminectomies, L4-L5 PLIF, L3 , L4 Power-Sebastian osteotomies, Resection of tumor L1-S1. L1-S1 PISF on 09/[address] Peters. -s/p L1-S1 laminectomies, L4-L5 PLIF, L3, L4 Power-Sebastian osteotomies Resection of tumor L1-S1. L1-S1 PISF on 09/[address] Peters. Pain management as needed, with aggressive bowel regimen to avoid constipation Physical therapy To follow up with Dr. Peters in 3 weeks -Hypertension, controlled On Lisinopril, and coreq Cardiac workup outpatient once patient is fully ambulatory Cardiology outpatient referral in d/c packet Add ASA once hemostasis is achieved and cleared by surgery As per wood cabinet finisher, additional cardiovascular evaluation is recommended including myocardial perfusion imaging study to be performed as outpatient once patient is fully ambulatory -Outpatient sleep study once acute medical issues resolve CPAP at register of deeds respiratory status Incentive spirometer encouraged -Monitor hmg/hct, low stable: repeat CBC outpatient to monitor Thrombocytopenia, resolved Leukocytosis, trending down: monitor, but no signs of infection here. vitals stable, no fever Disposition: for discharge today. Minutes to complete discharge: 30 Discharge Summary Reason For Visit: BACK PAIN Current Active Problems Anemia (Acute) Back pain (Acute) HTN (hypertension) (Acute) Lumbar stenosis (Acute) Obstructive sleep apnea (Acute) S/P lumbar laminectomy (Acute) Thrombocytopenia (Acute) Condition: Improved - Instructions Diet, Activity, Other Instructions: Discharge to rehab. Please follow up with Dr. Peters in 3 weeks for surgical follow up. Referrals: Aniceto Galo MD [Staff Physician] - 2 Weeks Trip Peters MD [Staff Physician] - 3 Weeks () Raad Webber MD [Staff Physician] - 2 Weeks [facility]position[facility] - Home Medications Comprehensive Discharge Medication List: Ambulatory Orders Lisinopril 10 mg PO DAILY 09/22/17 Oxycodone HCl/Acetaminophen [Percocet 5-325 mg Tablet] 1 - 2 tab PO Q4H This patient is new to me today: No Emergency Visit: Yes ED Registration Date: 09/22/17 Care time: The patient presented to the Emergency Department on the above date and was hospitalized for further evaluation of their emergent condition. Critical Care patient: No - Discharge Referral Referred to [facility] No
[2017-10-03] MEDS ORDERED: BISACODYL 10 MG SUPP.RECT RC ONE (10:15)
[2017-10-03 11:46] VITALS: BP 102/71; PULSE 78; TEMP 99.1
== END 2017-10-03 13:57 | DRG 304 ==
LOC: JER 17:01 → JERBED 21:29 → J6S 09-23 02:26 → JICU 09-24 00:36 → J8W 09-30 17:22
PROVIDERS: ADMIT Internal Medicine; ATTEND Nurse Practitioner Family
PROC: 0QB00ZZ Excision of Lumbar Vertebra, Open Approach (ICD-10-PCS; 2017-09-23)
PROC: 00Q20ZZ Repair Dura Mater, Open Approach (ICD-10-PCS; 2017-09-23)
PROC: 0JB70ZX Excision of Back Subcutaneous Tissue and Fascia, Open Approach, Diagnostic (ICD-10-PCS; 2017-09-23)
PROC: 0SG00AJ Fusion of Lumbar Vertebral Joint with Interbody Fusion Device, Posterior Approach, Anterior Column, Open Approach (ICD-10-PCS; principal; 2017-09-23 16:30)
DX: M48.062 Spinal stenosis, lumbar region with neurogenic claudication (principal); D69.6 Thrombocytopenia, unspecified; G97.41 Accidental puncture or laceration of dura during a procedure; Z68.41 Body mass index [BMI] 40.0-44.9, adult; D17.79 Benign lipomatous neoplasm of other sites; R60.0 Localized edema; I11.9 Hypertensive heart disease without heart failure; I25.10 Atherosclerotic heart disease of native coronary artery without angina pectoris; I87.2 Venous insufficiency (chronic) (peripheral); G47.33 Obstructive sleep apnea (adult) (pediatric); E66.9 Obesity, unspecified; D64.9 Anemia, unspecified; D72.829 Elevated white blood cell count, unspecified; Y83.8 Other surgical procedures as the cause of abnormal reaction of the patient, or of later complication, without mention of misadventure at the time of the procedure
CPT/HCPCS: 36415; 71045-TC-FY; 71046-TC-FY; 76000-TC-FY; 80048; 80053; 81003; 82550; 82553; 82962; 83735; 83880; 84100; 84484; 85025; 85027; 86850; 86900; 86901; 87040; 87086; 87186; 93005; 93010; 93306-TC; 94010; 94640; 94660; 94760; 97116-GP; 97161-GP; 99285-25; J0131; J7030